=== PATIENT | male | born 1970 | race Asian ===

== ENCOUNTER 2016-07-03 09:20 | Emergency (ER) | payer SELFPAY ==
[~2016-07-03] VITALS: Ht 180.3 cm; Wt 93.0 kg
[2016-07-03 09:30] VITALS: BP 162/118
--- NOTE | 2016-07-03 09:35 | NUR ---
Patient ambulated to bed 8. RN evaluating patient at bedside.
[2016-07-03] MEDS ORDERED: LIDOCAINE 1% 500 MG/50 ML VIAL INJ SCH (09:55)
--- NOTE | 2016-07-03 09:55 | NUR ---
Dr. Adler evaluating patient at bedside.
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
[2016-07-03] MEDS ORDERED: LIDOCAINE 1% 500 MG/50 ML VIAL INJ ONE (10:10)
--- NOTE | 2016-07-03 10:14 | NUR ---
Dr. Adler at bedside for procedure.
[2016-07-03 10:45] VITALS: BP 133/92
--- NOTE | 2016-07-03 10:45 | NUR ---
Patient discharged with v/s stable. Written and verbal after care instructions given and explained. Patient alert, oriented and verbalized understanding of instructions. Ambulatory with steady gait. All questions addressed prior to discharge. ID band removed. Patient advised to follow up with PMD. Rx of TYLENOL, KEFLEX given. Patient educated on indication of medication including possible reaction and side effects. Opportunity to ask questions provided and answered.
== END 2016-07-03 10:45 | disposition home or self-care (01) ==
LOC: MED 09:20
DX: S91.332A Puncture wound without foreign body, left foot, initial encounter (principal); R03.0 Elevated blood-pressure reading, without diagnosis of hypertension; W22.8XXA Striking against or struck by other objects, initial encounter; Y93.89 Activity, other specified; Y92.89 Other specified places as the place of occurrence of the external cause; Y99.8 Other external cause status
CPT/HCPCS: 10060; 99283; J2001

== ENCOUNTER 2019-06-23 18:56 | Inpatient (IN) | payer MEDICAID ==
[~2019-06-23] VITALS: Ht 180.3 cm; Wt 101.6 kg
--- NOTE | 2019-06-23 18:56 | NUR ---
PATIENT BIBA TO BED 7 AT THIS TIME.
[2019-06-23 18:59] VITALS: BP 122/89
--- NOTE | 2019-06-23 19:06 | NUR ---
48 Y/O MALE BIBA C/O SOB, COUGH, AND FEVER X 2 WEEKS. PT STATES DRY, NONPRODUCTIVE COUGH. RR EVEN AND UNLABORED, NO ACCESSORY MUSCLE USE, TACHYPNIC AT THIS TIME. PT PLACED ON 2L NC 99%. DENIES N/V/D. PRESENTS AFEBRILE AT THIS TIME. PT SITTING IN SEMIFOWLERS POSITION FOR COMFORT. X1 SIDE RAIL RAISED. BED LOCKED AND IN LOW POSITION. VSS. MEDHX: DENIES ALLERIGES: JUNI
--- NOTE | 2019-06-23 19:54 | NUR ---
Dr. Dveine examining patient.
[2019-06-23] MEDS ORDERED: NACL 0.9% 1,000 ML IV ONE (20:00)
[2019-06-23] MEDS ORDERED: ALBUTEROL SULFATE/IPRATROPIU 3 ML SOL IH ONE (20:00)
[2019-06-23] MEDS ORDERED: NACL 0.9% 2,500 ML IV ONE (20:00)
--- NOTE | 2019-06-23 20:16 | NUR ---
URINE COLLECTED FROM PT. LABS DRAWN FROM IV.
--- NOTE | 2019-06-23 20:18 | NUR ---
XRAY AT BEDSIDE
[2019-06-23 20:39] LABS: BASOPHILS # (AUTO) 0.1 K/uL (0.00-0.22); BASOPHILS % (AUTO) 0.6 % (0.0-2.0); EOSINOPHILS # (AUTO) 0.1 K/uL (0-0.4); EOSINOPHILS % (AUTO) 1.3 % (0.0-4.0); HEMOGLOBIN 14.4 g/dL (12.0-18.0); LYMPHOCYTES # (AUTO) 1.8 K/uL (2.0-11.5); LYMPHOCYTES % (AUTO) 19.2 % (20.5-51.1); MEAN CORPUSCULAR HEMOGLOBIN 30 pg (27-31); MEAN CORPUSCULAR HGB CONC 33 g/dL (33-37); MEAN CORPUSCULAR VOLUME 92.9 fL (80-94); MONOCYTES % (AUTO) 11.1 % (1.7-9.3); NEUTROPHILS # (AUTO) 6.3 K/uL (1.8-7.7); NEUTROPHILS % (AUTO) 67.8 % (42.2-75.2); PLATELET COUNT (AUTO) 414 K/uL (140-450); RED BLOOD CELL COUNT(AUTO) 4.73 MIL/uL (4.20-6.10); RED CELL DISTRIBUTION WIDTH 14.1 % (11.6-13.7); WHITE BLOOD COUNT (AUTO) 9.3 K/uL (4.8-10.8)
[2019-06-23 20:50] LABS: PROTHROMBIN TIME 10.1 secs (10.8-13.4)
[2019-06-23 20:59] LABS: APPEARANCE,URINE CLEAR (CLEAR); BILIRUBIN,URINE 1+ (NEGATIVE); BLOOD, URINE NEGATIVE (NEGATIVE); COLOR,URINE YELLOW (YELLOW); LEUKOCYTE ESTERASE ,URINE NEGATIVE (NEGATIVE); NITRITE, URINE NEGATIVE (NEGATIVE); UGLUCOSE NEGATIVE (NEGATIVE)
[2019-06-23 21:08] LABS: ALBUMIN 3.1 g/dL (3.4-5.0); ANION GAP 12.3 (8-16); CARBON DIOXIDE 24.7 mmol/L (21-32); CREATININE 0.8 mg/dL (0.6-1.3); TOTAL BILIRUBIN 0.5 mg/dL (0.0-1.0)
[2019-06-23] MEDS ORDERED: FUROSEMIDE 20 MG/2 ML VIAL IVP ONE (21:25)
[2019-06-23] MEDS ORDERED: ASPIRIN 325 MG TAB PO ONE (21:25)
--- NOTE | 2019-06-23 21:33 | NUR ---
DR CULVER AT BEDSIDE RE-EVALUATING PT.
[2019-06-23] MEDS ORDERED: hePARIN / DEXT 5% PREMIX 250 ML IV SCH (21:35)
[2019-06-23] MEDS ORDERED: HEPARIN PER PHARMACY MC PRN (21:35)
[2019-06-23] MEDS ORDERED: ALBUTEROL SULFATE/IPRATROPIU 3 ML SOL IH PRN (22:10)
[2019-06-23] MEDS ORDERED: FUROSEMIDE 20 MG/2 ML VIAL IVP SCH (22:15)
[2019-06-23] MEDS ORDERED: HYDROcodone/APAP 5/325 MG 1 TAB TAB PO PRN (22:20)
[2019-06-23] MEDS ORDERED: ONDANSETRON 4 MG/2 ML VIAL IM/IVP PRN (22:20)
[2019-06-23] MEDS ORDERED: ACETAMINOPHEN 325 MG TAB PO PRN (22:20)
[2019-06-23] MEDS ORDERED: LORazepam 2 MG/ML VIAL IM/IVP PRN (22:20)
--- NOTE | 2019-06-23 22:22 | NUR ---
RECEIVED PATIENT FROM ER VIA GURNEY. A/O X4, ABLE TO MAKE NEEDS KNOWN. RESPIRATIONS EVEN, UNLABORED. BREATH SOUNDS CLEAR BILATERALLY. INTERMITTENT NON PRODUCTIVE COUGH NOTED. SKIN WARM, DRY AND INTACT. SKIN ASSESSMENT COMPLETED. IV SITE TO LEFT AC 22G PATENT/INTACT. NO C/O PAIN. NO S/SX ACUTE DISTRESS NOTED. PATIENT IS AMBULATORY. CONTINENT OF BOWEL AND BLADDER. MRSA SCREEN COMPLETED. PATIENT ORIENTED TO STAFF, ROOM AND CALL LIGHT. TELE MONITOR IN PLACE. SAFETY PRECAUTIONS IN PLACE. CALL LIGHT WITHIN REACH. WILL CONTINUE TO MONITOR.
--- NOTE | 2019-06-23 22:30 | NUR ---
Patient will be admitted to care of DR OBREGON. Admited to TELE. Will go to room 106B. Belongings list completed. Report to VINICIUS ALCALA.
[2019-06-23] MEDS ORDERED: METOPROLOL 25 MG TAB PO SCH (22:40)
[2019-06-23] MEDS: NICOTINE TRANSD SYS 21 MG/24 HR PATCH TD SCH (23:27)
[2019-06-23] MEDS: LISINOPRIL 10 MG TAB PO SCH (23:27)
[2019-06-23] MEDS: ATORVASTATIN 20 MG TAB PO SCH (23:27)
[2019-06-23 23:33] LABS: AMYLASE 29 U/L (25-115); CHOL/HDL RATIO 5.6 (1-4.5); FREE T4 (FREE THYROXINE) 1.05 ng/dL (0.76-1.46); HDL CHOLESTEROL 29 mg/dL (40-60); LACTATE DEHYDROGENASE 297 U/L (85-227); LDL (CALC) 117 mg/dL (60-100); LIPASE 98 U/L (73-393); MAGNESIUM 1.9 mg/dL (1.8-2.4); PHOSPHORUS 3.3 mg/dL (2.5-4.9); THYROID STIMULATING HORMONE 2.55 uIU/mL (0.34-3.74); TRIGLYCERIDES 83 mg/dL (30-150)
[2019-06-23] MEDS ORDERED: cefTRIAXone 1,000 MG VIAL ONE (23:44)
[2019-06-24] VITALS: BP 106/79
--- NOTE | 2019-06-24 00:44 | NUR ---
HEPARIN STARTED PER PROTOCOL. HEPARIN INFUSING TO IV SITE RIGHT AC 22G. NO C/O PAIN. NO S/SX ACUTE DISTRESS. CALL LIGHT WITHIN REACH. WILL CONTINUE TO MONITOR.
[2019-06-24] MEDS: hePARIN / DEXT 5% PREMIX 250 ML IV SCH ×4 (00:46→21:27)
[2019-06-24] MEDS ORDERED: hydrALAZINE 20 MG/ML VIAL IVP PRN (02:50)
[2019-06-24] MEDS: BENZONATATE 100 MG CAPLF PO PRN ×3 (02:52→16:12)
--- NOTE | 2019-06-24 02:52 | NUR ---
PATIENT C/O COUGH. MEDICATED ORDERED. NO S/SX ACUTE DISTRESS NOTED. NO C/O PAIN. CALL LIGHT WITHIN REACH. WILL CONTINUE TO MONITOR.
--- NOTE | 2019-06-24 03:30 | NUR ---
PATIENT ASLEEP. NO EPISODES OF COUGHING AT THIS TIME. NO C/O PAIN. NO S/SX ACUTE DISTRESS. CALL LIGHT WITHIN REACH. WILL CONTINUE TO MONITOR.
[2019-06-24 04:00] VITALS: BP 107/71
[2019-06-24] MEDS: MORPHINE SULFATE 2 MG/ML SYR IVP PRN ×2 (05:34→23:39)
--- NOTE | 2019-06-24 05:34 | NUR ---
PATIENT C/O ACHING HEADACHE 11/22. MEDICATED ORDERED. CALL LIGHT WITHIN REACH. WILL CONTINUE TO MONITOR.
[2019-06-24 06:28] LABS: CARBON DIOXIDE 27.2 mmol/L (21-32); POTASSIUM 4.2 mmol/L (3.5-5.1)
[2019-06-24 06:29] LABS: BASOPHILS # (AUTO) 0.1 K/uL (0.00-0.22); BASOPHILS % (AUTO) 0.7 % (0.0-2.0); EOSINOPHILS # (AUTO) 0.1 K/uL (0-0.4); EOSINOPHILS % (AUTO) 1.1 % (0.0-4.0); HEMATOCRIT 43.8 % (36-52); HEMOGLOBIN 14.4 g/dL (12.0-18.0); LYMPHOCYTES # (AUTO) 1.6 K/uL (2.0-11.5); LYMPHOCYTES % (AUTO) 16.8 % (20.5-51.1); MEAN CORPUSCULAR HEMOGLOBIN 31 pg (27-31); MEAN CORPUSCULAR HGB CONC 33 g/dL (33-37); MEAN CORPUSCULAR VOLUME 93.5 fL (80-94); MONOCYTES % (AUTO) 10.8 % (1.7-9.3); NEUTROPHILS # (AUTO) 6.7 K/uL (1.8-7.7); NEUTROPHILS % (AUTO) 70.6 % (42.2-75.2); PLATELET COUNT (AUTO) 385 K/uL (140-450); RED BLOOD CELL COUNT(AUTO) 4.68 MIL/uL (4.20-6.10); RED CELL DISTRIBUTION WIDTH 14.1 % (11.6-13.7); WHITE BLOOD COUNT (AUTO) 9.5 K/uL (4.8-10.8)
--- NOTE | 2019-06-24 06:32 | NUR ---
REASSESSED PATIENT'S PAIN LEVEL. PATIENT IS ASLEEP. NO S/SX ACUTE DISTRESS. CALL LIGHT WITHIN REACH. WILL CONTINUE TO MONITOR.
--- NOTE | 2019-06-24 07:19 | NUR ---
ENDORSED PATIENT TO AM SHIFT NURSE IN STABLE CONDITION FOR CONTINUITY OF CARE.
--- NOTE | 2019-06-24 07:20 | NUR ---
PATIENT LYING DOWN IN BED SLEEPING, AROUSABLE BY VOICE. NO DISTRESS NOTED. DENIES ANY PAIN. AAOX4, CALM, COOPERATIVE, SKIN COLOR APPROPRIATE TO ETHNICITY, WARM TO TOUCH. SKIN INTACT. IV SITES INTACT, PATENT, AND INFUSING IVF PER MD ORDERS. HEPARIN DRIP CURRENTLY INFUSING PER MD ORDERS. RESPIRATIONS EVEN, UNLABORED, ON ROOM AIR. SAFETY MEASURES IN PLACE, CALL LIGHT WITHIN REACH. WILL CONTINUE TO MONITOR.
[2019-06-24] MEDS: ALBUTEROL SULFATE/IPRATROPIU 3 ML SOL IH SCH ×3 (07:37→20:36)
[2019-06-24 08:00] VITALS: BP 118/89
--- NOTE | 2019-06-24 08:17 | NUR ---
PATIENT HAS BEEN SCREENED AND CATEGORIZED HIGH NUTRITION RISK. PATIENT WILL BE SEEN WITHIN 1-2 DAYS OF ADMISSION. 06/24/19 - 06/25/19 DELFINO MORIN MBA,RD
[2019-06-24] MEDS ORDERED: FUROSEMIDE 20 MG/2 ML VIAL IVP SCH (09:00)
[2019-06-24] MEDS: ASPIRIN 81 MG TAB.CHEW PO SCH (09:00)
[2019-06-24] MEDS: FUROSEMIDE 20 MG/2 ML VIAL IVP SCH (09:01)
--- NOTE | 2019-06-24 09:10 | NUR ---
PATIENT SITTING DOWN IN BED WATCHING TV. NO DISTRESS NOTED. DENIES ANY PAIN. SCHEDULED MEDICATIONS DUE GIVEN. DR. LEVIN AT BEDSIDE REVIEWING PLAN OF CARE WITH PATIENT. WILL CONTINUE TO MONITOR.
[2019-06-24 09:50] LABS: BARBITURATE, URINE NEGATIVE ng/ml (NEG <=200); BENZODIAZEPINE, URINE NEGATIVE ng/mL (NEG <=200); CANNABINOID, URINE NEGATIVE ng/mL (NEG <=50); COCAINE, URINE NEGATIVE ng/mL (NEG <=300); OPIATE, URINE NEGATIVE ng/mL (NEG <=2000); PHENCYCLIDINE SCREEN,URINE NEGATIVE ng/mL (NEG <=25)
--- NOTE | 2019-06-24 11:05 | NUR ---
PATIENT COMPLAINS OF COUGH, BENZONATE GIVEN AT THIS TIME. WILL CONTINUE TO MONITOR.
[2019-06-24 12:00] VITALS: BP 122/63
--- NOTE | 2019-06-24 13:00 | NUR ---
PATIENT LYING DOWN IN BED, ULTRASOUND BEING CONDUCTED. WILL CONTINUE TO MONITOR.
--- NOTE | 2019-06-24 15:12 | NUR ---
PATIENT LYING DOWN IN BED WATCHING TV. NO DISTRESS NOTED. DENIES ANY PAIN. CONDITION UNCHANGED. WILL CONTINUE TO MONITOR.
[2019-06-24] MEDS ORDERED: ALBUTEROL SULFATE/IPRATROPIU 3 ML SOL IH PRN (15:40)
[2019-06-24 16:00] VITALS: BP 112/77
[2019-06-24] MEDS: predniSONE 20 MG TAB PO SCH (16:12)
[2019-06-24] MEDS: LEVOFLOXACIN 500 MG/D5W PREMIX 100 ML IV SCH (16:14)
--- NOTE | 2019-06-24 16:30 | NUR ---
PATIENT SITTING IN BED WATCHING TV. NO DISTRESS NOTED. COMPLAINS OF COUGH, BENZONTATE GIVEN. OTHER SCHEDULED MEDICATIONS DUE GIVEN. WILL CONTINUE TO MONITOR.
--- NOTE | 2019-06-24 19:28 | NUR ---
GAVE REPORT TO NURSE INSTRUCTOR NURSE FOR CONTINUITY OF CARE. PATIENT IN STABLE CONDITION.
--- NOTE | 2019-06-24 19:30 | NUR ---
RECEIVED BEDSIDE REPORT FROM AM SHIFT RN FOR PT'S CONTINUITY OF CARE. PT IS AAOX4, IS ON REGULATORY AFFAIRS SPECIALIST, ON ROOM AIR, HAS RIGHT AC 22G INFUSING WITH HEPARIN, AND LEFT AC 22G TKO, DENIES ANY PAIN AT THIS TIME, REQUESTED FOR SLEEP AID. ORIENTED PT TO THE PARTITION ASSEMBLY MACHINE OPERATOR ROUTINE, PT VERBALIZED UNDERSTANDING. SAFETY MEASURES IN PLACE, AND CALL LIGHT IS WITHIN REACH. WILL NOTIFY MD FOR SLEEP AID REQUEST. WILL MONITOR PT THROUGHOUT SHIFT.
[2019-06-24] MEDS ORDERED: traZODone 50 MG TAB PO PRN (19:40)
[2019-06-24 20:00] VITALS: BP 119/65
[2019-06-24] MEDS: BUDESONIDE 0.5 MG/2 ML NEBU INH SCH (20:36)
--- NOTE | 2019-06-24 20:46 | NUR ---
RECEIVED PT ON ROOM AIR WITH AN SP02 OF 95% AND A CLEAR BREATH SOUNDS ON UPPER LOBES AND A COARSE BREATH SOUNDS ON LOWER BASES. NO RESPIRATORY DISTRESS NOTED AT THIS TIME. HHN TX GIVEN ORDERED WITH NO ADVERSE REACTION. WILL CONITINUE TO MONITOR PT.
[2019-06-24] MEDS: DOCUSATE SODIUM 100 MG GELCAP PO PRN (21:12)
[2019-06-24] MEDS: ATORVASTATIN 20 MG TAB PO SCH (21:12)
[2019-06-24] MEDS: LISINOPRIL 10 MG TAB PO SCH (21:12)
[2019-06-24] MEDS: NICOTINE TRANSD SYS 21 MG/24 HR PATCH TD SCH (21:12)
--- NOTE | 2019-06-24 21:28 | NUR ---
ADMINISTERED SCHEDULED, AND PRN PO MEDICATIONS ORDERED. PT TOLERATED THEM WELL. HUNG NEW IV HEPARIN DRIP. PT TEACHING GIVEN RE: MEDICATIONS. PT VERBALIZED UNDERSTANDING. PT'S NEEDS MET AT THIS TIME. WILL CONTINUE TO MONITOR PT.
--- NOTE | 2019-06-24 23:39 | NUR ---
PT C/O CHEST PAIN DT COUGH, ADMINISTERED PRN IVP PAIN MEDICATION ORDERED. PT TEACHING GIVING. PT VERBALIZED UNDERSTANDING. PT'S NEEDS MET. WILL CONTINUE TO MONITOR PT.
[2019-06-25] VITALS: BP 106/63
--- NOTE | 2019-06-25 00:30 | NUR ---
APTT LEVEL 49.2. NO CHANGE PER PROTOCOL.
[2019-06-25] MEDS: BENZONATATE 100 MG CAPLF PO PRN (01:04)
--- NOTE | 2019-06-25 01:06 | NUR ---
PT BEEN COUGHING. REQUESTED FOR COUGH MEDICATION. ADMINISTERED PRN PO COUGH MEDICINE, PT TOLERATED IT WELL. WILL CONTINUE TO MONITOR PT.
--- NOTE | 2019-06-25 02:30 | NUR ---
MADE ROUNDS. PT LYING DOWN ASLEEP, NO COUGHING NOTED. WILL CONTINUE TO MONITOR PT.
[2019-06-25] MEDS: hePARIN / DEXT 5% PREMIX 250 ML IV SCH ×2 (02:55→09:11)
[2019-06-25 04:00] VITALS: BP 110/72
--- NOTE | 2019-06-25 04:30 | NUR ---
PT ASLEEP WITH NO SIGNS OF DISTRESS. INTERMITTENT NON-PRODUCTIVE COUGH NOTED. WILL CONTINUE TO MONITOR PT.
--- NOTE | 2019-06-25 06:19 | NUR ---
PT ASLEEP WITH NO SIGNS OF DISTRESS. STILL AWAITING FOR PTT RESULT. WILL ENDORSE TO AM SHIFT RN FOR PT'S CONTINUITY OF CARE.
[2019-06-25] MEDS: BUDESONIDE 0.5 MG/2 ML NEBU INH SCH ×2 (07:04→20:21)
[2019-06-25] MEDS: ALBUTEROL SULFATE/IPRATROPIU 3 ML SOL IH SCH ×3 (07:04→20:21)
[2019-06-25 07:57] LABS: ANION GAP 13.5 (8-16); CARBON DIOXIDE 25.3 mmol/L (21-32); HEMATOCRIT 44.2 % (36-52); HEMOGLOBIN 14.5 g/dL (12.0-18.0); LYMPHOCYTES # (AUTO) 1.4 K/uL (2.0-11.5); LYMPHOCYTES % (AUTO) 12.5 % (20.5-51.1); MEAN CORPUSCULAR HEMOGLOBIN 30 pg (27-31); MEAN CORPUSCULAR HGB CONC 33 g/dL (33-37); MEAN CORPUSCULAR VOLUME 92.9 fL (80-94); MONOCYTES # (AUTO) 1.4 K/uL (0.8-1.0); MONOCYTES % (AUTO) 12.5 % (1.7-9.3); NEUTROPHILS # (AUTO) 8.7 K/uL (1.8-7.7); PLATELET COUNT (AUTO) 393 K/uL (140-450); POTASSIUM 3.8 mmol/L (3.5-5.1); RED BLOOD CELL COUNT(AUTO) 4.76 MIL/uL (4.20-6.10); RED CELL DISTRIBUTION WIDTH 14.1 % (11.6-13.7); WHITE BLOOD COUNT (AUTO) 11.6 K/uL (4.8-10.8)
[2019-06-25 08:00] VITALS: BP 115/78
[2019-06-25] MEDS: NICOTINE TRANSD SYS 21 MG/24 HR PATCH TD SCH (09:00)
[2019-06-25 09:27] LABS: MAGNESIUM 1.9 mg/dL (1.8-2.4); PHOSPHORUS 4.3 mg/dL (2.5-4.9)
[2019-06-25] MEDS: LISINOPRIL 10 MG TAB PO SCH (09:27)
[2019-06-25] MEDS: predniSONE 20 MG TAB PO SCH (09:28)
[2019-06-25] MEDS: ASPIRIN 81 MG TAB.CHEW PO SCH (09:28)
[2019-06-25] MEDS: FUROSEMIDE 20 MG/2 ML VIAL IVP SCH (09:29)
--- NOTE | 2019-06-25 10:00 | NUR ---
PATIENT SITTING DOWN IN BED WATCHING TV. NO DISTRESS NOTED. WILL CONTINUE TO MONITOR.
[2019-06-25 12:00] VITALS: BP 111/55
--- NOTE | 2019-06-25 13:00 | NUR ---
PATIENT LYING DOWN IN BED SLEEPING, AROUSABLE BY VOICE. CONDITION UNCHANGED. WILL CONTINUE TO MONITOR.
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
--- NOTE | 2019-06-25 15:40 | NUR ---
HEPARIN DRIP DISCONTINUED AT THIS TIME PER MD ORDERS. WILL CONTINUE TO MONITOR.
--- NOTE | 2019-06-25 15:44 | NUR ---
06/25/19 RD INITIAL ASSESSMENT COMPLETED PLEASE REFER TO NUTRITION ASSESSMENT UNDER CARE ACTIVITY FOR ESTIMATED NUTRITIONAL NEEDS. 1. CONTINUE CARDIAC DIET TOLERATED 2. RD PROVIDED NUTRITION EDUCATION ON TLC DIET AND CHF MANAGEMENT. 3. RD TO FOLLOW-UP 5-7 DAYS, LOW RISK ASHELY FARRAR RD
[2019-06-25 16:00] VITALS: BP 108/70
[2019-06-25] MEDS: LEVOFLOXACIN 500 MG/D5W PREMIX 100 ML IV SCH (16:11)
--- NOTE | 2019-06-25 16:15 | NUR ---
PATIENT LYING DOWN IN BED SLEEPING, AROUSABLE BY VOICE. SCHEDULED MEDICATIONS DUE GIVEN. WILL CONTINUE TO MONITOR.
--- NOTE | 2019-06-25 19:25 | NUR ---
GAVE REPORT TO SUPERVISOR STATEMENT CLERKS NURSE FOR CONTINUITY OF CARE. PATIENT IN STABLE CONDITION.
--- NOTE | 2019-06-25 19:26 | NUR ---
RECEIVED PT IN STABLE CONDITION FROM AM NURSE. AWAKE,ALERT AND ORIENTED X4. ON TELE MONITOR. AMBULATORY. WITH NO CO ANY DISCOMFORT NOR PAIN NOTED. HL ON BOTH LT AC AND RT ACG#22. CLEAR AND PATENT PLAN OF CARE DISCUSSED AND VERBALIZED UNDERSTANDING. WITH BED ON LOW POSITION. SIDE RAILS UP X2. CALL LIGHT PLACED WITHIN EASY REACH. WILL CONTINUE TO MONITOR.
[2019-06-25 20:00] VITALS: BP 122/56
--- NOTE | 2019-06-25 20:26 | NUR ---
RECEIVED PT ON ROOM AIR WITH AN SP02 OF 97% AND A CLEAR BREATH SOUNDS ON UPPER LOBES. NO APPARENT RESPIRATORY DISTRESS NOTED AT THIS TIME. HHN TX GIVEN ORDERED WITH NO ADVERSE REACTION. WILL CONTINUE TO MONITOR PT.
--- NOTE | 2019-06-25 21:00 | NUR ---
PT TOOK DUE MEDS . C/O NO BM X2DAYS. WILL GIVE ALSO COLACE AND PRUNE JUICE.
[2019-06-25] MEDS: ATORVASTATIN 20 MG TAB PO SCH (21:01)
[2019-06-25] MEDS: DOCUSATE SODIUM 100 MG GELCAP PO PRN (21:02)
--- NOTE | 2019-06-25 23:00 | NUR ---
MADE ROUNDS. PT ASLEEP. NO S/S OF ANY DISCOMFORT NOTED.
[2019-06-26 01:00] VITALS: BP 117/73
--- NOTE | 2019-06-26 01:15 | NUR ---
PT STILL UNABLE TO HAVE BM AFTER THE COLACE AND PRUNE JUICE TAKEN EARLIER. DR. TELLES MADE AWARE WI ORDER.
[2019-06-26] MEDS ORDERED: MAGNESIUM CITRATE 300 ML BTL PO SCH (02:30)
--- NOTE | 2019-06-26 03:00 | NUR ---
PT ASLEEP. NO S/S OF ANY DISCOMFORT NOTED.
[2019-06-26 05:00] VITALS: BP 113/77
--- NOTE | 2019-06-26 05:00 | NUR ---
PT JUST TOOK THE [place] THIS AM. WILL WAIT FOR BM.
[2019-06-26] MEDS: BENZONATATE 100 MG CAPLF PO PRN (05:07)
[2019-06-26] MEDS: ALBUTEROL SULFATE/IPRATROPIU 3 ML SOL IH SCH ×2 (07:05→13:35)
[2019-06-26] MEDS: BUDESONIDE 0.5 MG/2 ML NEBU INH SCH (07:15)
--- NOTE | 2019-06-26 07:20 | NUR ---
PATIENT LYING DOWN IN BED SLEEPING, AROUSABLE BY VOICE. NO DISTRESS NOTED. DENIES ANY PAIN. AAOX4, CALM, COOPERATIVE, SKIN COLOR APPROPRIATE TO ETHNICITY, WARM TO TOUCH. SKIN INTACT. IV SITES INTACT, PATENT, AND INFUSING IVF PER MD ORDERS. RESPIRATIONS EVEN, UNLABORED, ON ROOM AIR. SAFETY MEASURES IN PLACE, CALL LIGHT WITHIN REACH. WILL CONTINUE TO MONITOR.
[2019-06-26 08:00] VITALS: BP 104/53
[2019-06-26] MEDS: LISINOPRIL 10 MG TAB PO SCH (09:00)
[2019-06-26] MEDS: FUROSEMIDE 20 MG/2 ML VIAL IVP SCH (09:00)
[2019-06-26] MEDS: ASPIRIN 81 MG TAB.CHEW PO SCH (09:00)
[2019-06-26] MEDS: predniSONE 20 MG TAB PO SCH (09:00)
[2019-06-26] MEDS: NICOTINE TRANSD SYS 21 MG/24 HR PATCH TD SCH (09:00)
--- NOTE | 2019-06-26 09:10 | NUR ---
PATIENT SITTING DOWN IN BED SLEEPING, AROUSABLE BY VOICE. NO DISTRESS NOTED. DENIES ANY PAIN. SCHEDULED MEDICATIONS DUE GIVEN. WILL CONTINUE TO MONITOR.
[2019-06-26 10:53] LABS: BASOPHILS # (AUTO) 0.1 K/uL (0.00-0.22); BASOPHILS % (AUTO) 1.1 % (0.0-2.0); CARBON DIOXIDE 25.5 mmol/L (21-32); EOSINOPHILS # (AUTO) 0.1 K/uL (0-0.4); EOSINOPHILS % (AUTO) 0.5 % (0.0-4.0); HEMATOCRIT 46.2 % (36-52); HEMOGLOBIN 15.2 g/dL (12.0-18.0); LYMPHOCYTES # (AUTO) 2.5 K/uL (2.0-11.5); LYMPHOCYTES % (AUTO) 18.3 % (20.5-51.1); MEAN CORPUSCULAR HEMOGLOBIN 31 pg (27-31); MEAN CORPUSCULAR HGB CONC 33 g/dL (33-37); MEAN CORPUSCULAR VOLUME 93.2 fL (80-94); MONOCYTES # (AUTO) 1.7 K/uL (0.8-1.0); MONOCYTES % (AUTO) 12.5 % (1.7-9.3); NEUTROPHILS # (AUTO) 9.1 K/uL (1.8-7.7); NEUTROPHILS % (AUTO) 67.6 % (42.2-75.2); PHOSPHORUS 5.2 mg/dL (2.5-4.9); PLATELET COUNT (AUTO) 451 K/uL (140-450); POTASSIUM 3.5 mmol/L (3.5-5.1); RED BLOOD CELL COUNT(AUTO) 4.96 MIL/uL (4.20-6.10); RED CELL DISTRIBUTION WIDTH 14.5 % (11.6-13.7); WHITE BLOOD COUNT (AUTO) 13.4 K/uL (4.8-10.8)
--- NOTE | 2019-06-26 11:30 | NUR ---
PATIENT SITTING IN BED WATCHING TV. NO DISTRESS NOTED. DENIES ANY PAIN. CONDITION UNCHANGED. WILL CONTINUE TO MONITOR.
[2019-06-26 12:00] VITALS: BP 107/66
--- NOTE | 2019-06-26 13:30 | NUR ---
PATIENT SITTING DOWN IN WATCHING TV. CONDITION UNCHANGED. WILL CONTINUE TO MONITOR.
[2019-06-26] MEDS ORDERED: INFLUENZA VACCINE QUAD 0.5 ML SYR IMVAC PRN (14:20)
[2019-06-26] MEDS ORDERED: CARVEDILOL 3.125 MG TAB PO SCH (14:40)
[2019-06-26] MEDS ORDERED: ATOR40TA PO (14:46)
[2019-06-26] MEDS ORDERED: LISI10TA11 PO (14:46)
[2019-06-26] MEDS ORDERED: ASPI81CT95 PO (14:46)
[2019-06-26] MEDS ORDERED: NICO-532 TD (14:46)
[2019-06-26] MEDS ORDERED: FURO-570 PO (14:46)
[2019-06-26] MEDS ORDERED: CARV3.12 PO (14:52)
--- NOTE | 2019-06-26 16:18 | NUR ---
DISCHARGE INSTRUCTIONS PROVIDED TO PATIENT IN PREFERRED LANGUAGE OF CYMRAES. INSTRUCTIONS ON NEW/CHANGED MEDICATION REGIMEN AND SIDE EFFECT, DIET REGIMEN, AND MANAGEMENT OF CHF. ANSWERED ALL OF PATIENT'S QUESTIONS REGARDING DISCHARGE. PATIENT VERBALIZED COMPLETE UNDERSTANDING. IV SITE REMOVED WITH MINIMAL BLOOD AND LUMEN COMPLETELY INTACT. PATIENT TOLERATED WELL. ID BANDS REMOVED. SON AT BEDSIDE READY TO TAKE PATIENT HOME. ESCORTED PATIENT DOWN TO LOBBY VIA STEADY AMBULATION. PATIENT DISCHARGED TO HOME AT THIS TIME IN STABLE CONDITION.
== END 2019-06-26 17:04 | disposition home or self-care (01) | DRG 190 ==
LOC: MED 18:56 → MTU 21:30
PROVIDERS: ADMIT General Practice; ATTEND General Practice
DX: I21.A1 Myocardial infarction type 2 (principal); J96.01 Acute respiratory failure with hypoxia; I50.43 Acute on chronic combined systolic (congestive) and diastolic (congestive) heart failure; I42.7 Cardiomyopathy due to drug and external agent; R65.10 Systemic inflammatory response syndrome (SIRS) of non-infectious origin without acute organ dysfunction; E44.0 Moderate protein-calorie malnutrition; J44.9 Chronic obstructive pulmonary disease, unspecified; T50.905A Adverse effect of unspecified drugs, medicaments and biological substances, initial encounter; F17.210 Nicotine dependence, cigarettes, uncomplicated; Z96.642 Presence of left artificial hip joint; F15.90 Other stimulant use, unspecified, uncomplicated; Z68.31 Body mass index [BMI] 31.0-31.9, adult; Y92.89 Other specified places as the place of occurrence of the external cause; Z90.81 Acquired absence of spleen; Z80.1 Family history of malignant neoplasm of trachea, bronchus and lung; Z71.51 Drug abuse counseling and surveillance of drug abuser; Z71.6 Tobacco abuse counseling; Z23 Encounter for immunization
CPT/HCPCS: 36415; 36600; 71045; 71275; 76604; 80048; 80053; 80305; 81003; 82043; 82140; 82150; 82803; 83036; 83605; 83615; 83690; 83735; 83880; 84100; 84439; 84443; 84484; 85025; 85379; 85610; 85730; 87040; 87081; 87086; 87804; 93005; 94640; 96361; 96374; 99285; G0482; J0696; J1644; J1940; J1956; J2270; J7030; J7060; J7512; J7620; J7626; Q0092; Q9967

== ENCOUNTER 2019-08-01 14:13 | Inpatient (IN) | payer MEDICAID ==
[~2019-08-01] VITALS: Ht 177.8 cm; Wt 104.3 kg
[~2019-08-01 14:13] MED LIST: ASPI81CT95 PO; ATOR40TA PO; CARV3.12 PO; FURO-570 PO; LISI10TA11 PO; NICO-532 TD
[2019-08-01 14:17] VITALS: BP 129/91
[2019-08-01] MEDS ORDERED: FUROSEMIDE 20 MG/2 ML VIAL IVP ONE (14:40)
[2019-08-01] MEDS ORDERED: ASPIRIN 81 MG TAB.CHEW PO ONE (14:40)
[2019-08-01] MEDS ORDERED: LEVOFLOXACIN 500 MG/D5W PREMIX 100 ML IV ONE (14:40)
[2019-08-01 15:13] LABS: BASOPHILS # (AUTO) 0.3 K/uL (0.00-0.22); BASOPHILS % (AUTO) 2.7 % (0.0-2.0); EOSINOPHILS % (AUTO) 0.1 % (0.0-4.0); HEMATOCRIT 51.6 % (36-52); HEMOGLOBIN 16.6 g/dL (12.0-18.0); LYMPHOCYTES # (AUTO) 1.6 K/uL (2.0-11.5); LYMPHOCYTES % (AUTO) 13.7 % (20.5-51.1); MEAN CORPUSCULAR HEMOGLOBIN 31 pg (27-31); MEAN CORPUSCULAR HGB CONC 32 g/dL (33-37); MEAN CORPUSCULAR VOLUME 95.4 fL (80-94); MONOCYTES # (AUTO) 1.6 K/uL (0.8-1.0); MONOCYTES % (AUTO) 13.9 % (1.7-9.3); NEUTROPHILS # (AUTO) 7.9 K/uL (1.8-7.7); NEUTROPHILS % (AUTO) 69.6 % (42.2-75.2); PLATELET COUNT (AUTO) 285 K/uL (140-450); RED BLOOD CELL COUNT(AUTO) 5.41 MIL/uL (4.20-6.10); RED CELL DISTRIBUTION WIDTH 15.5 % (11.6-13.7); WHITE BLOOD COUNT (AUTO) 11.4 K/uL (4.8-10.8)
[2019-08-01] MEDS ORDERED: ONDANSETRON 4 MG/2 ML VIAL IM/IVP PRN (15:40)
[2019-08-01] MEDS ORDERED: DOCUSATE SODIUM 100 MG GELCAP PO PRN (15:40)
[2019-08-01] MEDS ORDERED: ACETAMINOPHEN 325 MG TAB PO PRN (15:40)
[2019-08-01 15:41] LABS: PROTHROMBIN TIME 28.3 secs (10.8-13.4)
[2019-08-01] MEDS ORDERED: ALBUTEROL SULFATE/IPRATROPIU 3 ML SOL IH PRN (15:55)
[2019-08-01 16:39] LABS: APPEARANCE,URINE CLEAR (CLEAR); BILIRUBIN,URINE 2+ (NEGATIVE); BLOOD, URINE 1+ (NEGATIVE); COLOR,URINE YELLOW (YELLOW); LEUKOCYTE ESTERASE ,URINE NEGATIVE (NEGATIVE); NITRITE, URINE NEGATIVE (NEGATIVE); PH,URINE 5.5 (5.0-9.0); UGLUCOSE NEGATIVE (NEGATIVE)
[2019-08-01] MEDS: NACL 0.9% 1,000 ML IV SCH (16:51)
[2019-08-01 16:54] LABS: BARBITURATE, URINE NEGATIVE ng/ml (NEG <=200); BENZODIAZEPINE, URINE NEGATIVE ng/mL (NEG <=200); CANNABINOID, URINE NEGATIVE ng/mL (NEG <=50); COCAINE, URINE NEGATIVE ng/mL (NEG <=300); OPIATE, URINE NEGATIVE ng/mL (NEG <=2000); PHENCYCLIDINE SCREEN,URINE NEGATIVE ng/mL (NEG <=25)
[2019-08-01 17:00] VITALS: BP 114/83
[2019-08-01 17:06] LABS: FREE T4 (FREE THYROXINE) 1.43 ng/dL (0.76-1.46); MAGNESIUM 2.1 mg/dL (1.8-2.4); PHOSPHORUS 4.4 mg/dL (2.5-4.9); THYROID STIMULATING HORMONE 1.45 uIU/mL (0.34-3.74)
[2019-08-01 17:13] LABS: WBC,URINE 0-5 /HPF (0-5)
[2019-08-01] MEDS ORDERED: AZITHROMYCIN 500 MG in DEXTROSE 5% 250 ML IV SCH (17:30)
[2019-08-01 17:55] LABS: ALBUMIN 3.4 g/dL (3.4-5.0); ANION GAP 19.5 (8-16); CREATININE 1.4 mg/dL (0.6-1.3); POTASSIUM 4.5 mmol/L (3.5-5.1); TOTAL BILIRUBIN 2.8 mg/dL (0.0-1.0)
[2019-08-01] MEDS ORDERED: FUROSEMIDE 20 MG/2 ML VIAL IVP SCH (18:15)
[2019-08-01 20:00] VITALS: BP 109/90
[2019-08-01] MEDS: CARVEDILOL 3.125 MG TAB PO SCH (20:24)
[2019-08-01] MEDS ORDERED: ONDANSETRON 4 MG/2 ML VIAL IVP PRN (20:40)
[2019-08-01] MEDS: ZOLPIDEM 5 MG TAB PO PRN (21:00)
[2019-08-01] MEDS ORDERED: ATORVASTATIN 20 MG TAB PO SCH (21:00)
[2019-08-01] MEDS ORDERED: DOCUSATE SODIUM 100 MG GELCAP PO SCH (21:00)
[2019-08-01] MEDS ORDERED: LORazepam 2 MG/ML VIAL ONE (21:34)
[2019-08-01] MEDS: LORazepam 2 MG/ML VIAL IM/IVP PRN (21:45)
[2019-08-01] MEDS ORDERED: VANCOMYCIN PER PHARMACY MC PRN (22:50)
[2019-08-02] VITALS: BP 109/75
[2019-08-02] MEDS ORDERED: HEPARIN PER PHARMACY MC PRN (01:35)
[2019-08-02] MEDS ORDERED: hePARIN / DEXT 5% PREMIX 250 ML IV ONE (03:35)
[2019-08-02] MEDS ORDERED: VANCOMYCIN HCL 1,750 MG in NACL 0.9% 500 ML IV SCH (03:35)
[2019-08-02] MEDS ORDERED: VANCOMYCIN 1,000 MG VIAL ONE (03:43)
[2019-08-02 04:00] VITALS: BP 100/64
[2019-08-02] MEDS: hePARIN / DEXT 5% PREMIX 250 ML IV SCH ×2 (04:07→13:22)
[2019-08-02 06:31] LABS: CHOL/HDL RATIO 3.8 (1-4.5)
[2019-08-02 08:00] VITALS: BP 115/81
[2019-08-02] MEDS ORDERED: LISINOPRIL 10 MG TAB PO SCH (09:00)
[2019-08-02] MEDS: NICOTINE TRANSD SYS 21 MG/24 HR PATCH TD SCH (09:00)
[2019-08-02] MEDS ORDERED: FUROSEMIDE 20 MG/2 ML VIAL IVP SCH (09:00)
[2019-08-02 09:22] LABS: HEMATOCRIT 46.8 % (36-52); HEMOGLOBIN 14.9 g/dL (12.0-18.0); MEAN CORPUSCULAR HEMOGLOBIN 31 pg (27-31); MEAN CORPUSCULAR HGB CONC 32 g/dL (33-37); MEAN CORPUSCULAR VOLUME 96.3 fL (80-94); PLATELET COUNT (AUTO) 271 K/uL (140-450); RED BLOOD CELL COUNT(AUTO) 4.86 MIL/uL (4.20-6.10); RED CELL DISTRIBUTION WIDTH 15.7 % (11.6-13.7); WHITE BLOOD COUNT (AUTO) 17.7 K/uL (4.8-10.8)
[2019-08-02 09:26] LABS: ANION GAP 20.8 (8-16); CARBON DIOXIDE 21.1 mmol/L (21-32); CREATININE 2.1 mg/dL (0.6-1.3); POTASSIUM 4.9 mmol/L (3.5-5.1)
[2019-08-02 09:57] LABS: LYMPHOCYTES % (MANUAL) 5 % (20-46); MONOCYTES % (MANUAL) 10 % (5-12)
[2019-08-02] MEDS: ASPIRIN 81 MG TAB.CHEW PO SCH (09:58)
[2019-08-02] MEDS: DOCUSATE 100 MG/10 ML UDC PO SCH ×2 (09:58→20:20)
[2019-08-02] MEDS: CARVEDILOL 3.125 MG TAB PO SCH ×2 (09:58→20:21)
[2019-08-02] MEDS: AZITHROMYCIN 250 MG in DEXTROSE 5% 250 ML IV SCH (10:33)
[2019-08-02 12:00] VITALS: BP 105/78
[2019-08-02] MEDS: NACL 0.9% 1,000 ML IV SCH (15:38)
[2019-08-02 16:00] VITALS: BP 114/77
[2019-08-02] MEDS: VANCOMYCIN 1,000 MG in DEXTROSE 5% 250 ML IV SCH (18:20)
[2019-08-02 20:00] VITALS: BP 145/75
[2019-08-02] MEDS: ZOLPIDEM 5 MG TAB PO PRN (20:21)
[2019-08-03] VITALS: BP 123/61
[2019-08-03] MEDS: hePARIN / DEXT 5% PREMIX 250 ML IV SCH ×2 (01:34→21:47)
[2019-08-03 04:00] VITALS: BP 129/75
[2019-08-03] MEDS: VANCOMYCIN 1,000 MG in DEXTROSE 5% 250 ML IV SCH (05:08)
[2019-08-03 06:19] LABS: HEPATITIS A ANTIBODY IGM Negative (Negative); HEPATITIS B CORE AB TOTAL Negative (Negative); HEPATITIS B SURFACE ANTIBODY Non Reactive (.); HEPATITIS B SURFACE ANTIGEN Negative (Negative)
[2019-08-03 08:00] VITALS: BP 122/72
[2019-08-03 08:03] LABS: HEMATOCRIT 44.6 % (36-52); HEMOGLOBIN 14.4 g/dL (12.0-18.0); MEAN CORPUSCULAR HEMOGLOBIN 31 pg (27-31); MEAN CORPUSCULAR HGB CONC 32 g/dL (33-37); MEAN CORPUSCULAR VOLUME 95.4 fL (80-94); PLATELET COUNT (AUTO) 208 K/uL (140-450); RED BLOOD CELL COUNT(AUTO) 4.67 MIL/uL (4.20-6.10); RED CELL DISTRIBUTION WIDTH 15.2 % (11.6-13.7); WHITE BLOOD COUNT (AUTO) 17.4 K/uL (4.8-10.8)
[2019-08-03] MEDS: NICOTINE TRANSD SYS 21 MG/24 HR PATCH TD SCH (08:25)
[2019-08-03] MEDS: DOCUSATE 100 MG/10 ML UDC PO SCH ×2 (08:25→20:10)
[2019-08-03] MEDS: ASPIRIN 81 MG TAB.CHEW PO SCH (08:26)
[2019-08-03] MEDS: CARVEDILOL 3.125 MG TAB PO SCH ×3 (08:27→20:27)
[2019-08-03] MEDS: LORazepam 2 MG/ML VIAL IM/IVP PRN (08:27)
[2019-08-03 08:29] LABS: LYMPHOCYTES % (MANUAL) 2 % (20-46); MONOCYTES % (MANUAL) 10 % (5-12)
[2019-08-03 08:34] LABS: ALBUMIN 3.2 g/dL (3.4-5.0); ANION GAP 20.3 (8-16); CARBON DIOXIDE 19.1 mmol/L (21-32); CREATININE 2.2 mg/dL (0.6-1.3); POTASSIUM 4.4 mmol/L (3.5-5.1); TOTAL BILIRUBIN 4.4 mg/dL (0.0-1.0)
[2019-08-03] MEDS ORDERED: FUROSEMIDE 20 MG/2 ML VIAL IVP SCH ×2 (09:00→12:41)
[2019-08-03] MEDS: AZITHROMYCIN 250 MG in DEXTROSE 5% 250 ML IV SCH (09:29)
[2019-08-03 12:00] VITALS: BP 110/89
[2019-08-03 14:42] LABS: ACETAMINOPHEN < 0.5 ug/ml (10-30); SALICYLATE < 2.8 mg/dL (2.8-20.0)
[2019-08-03 16:00] VITALS: BP 135/69
[2019-08-03] MEDS: ALBUTEROL HFA MDI 90 MCG/ACTUATION 8 GM INH PRN ×2 (16:02→19:42)
[2019-08-03 17:58] LABS: ALBUMIN 3.1 g/dL (3.4-5.0); ANION GAP 16.1 (8-16); CARBON DIOXIDE 21.6 mmol/L (21-32); CREATININE 2.1 mg/dL (0.6-1.3); POTASSIUM 4.7 mmol/L (3.5-5.1); TOTAL BILIRUBIN 4.3 mg/dL (0.0-1.0)
[2019-08-03] MEDS: LACTULOSE 20 GM/30 ML UDC PO SCH (18:20)
[2019-08-03 20:00] VITALS: BP 97/62
[2019-08-03] MEDS: FUROSEMIDE 20 MG/2 ML VIAL IVP SCH (20:11)
[2019-08-03] MEDS: SENNA 8.6 MG TAB PO SCH (20:11)
[2019-08-04] VITALS: BP 112/80
[2019-08-04 04:00] VITALS: BP 121/79
[2019-08-04 08:00] VITALS: BP 106/77
[2019-08-04] MEDS: LACTULOSE 20 GM/30 ML UDC PO SCH ×3 (08:26→17:59)
[2019-08-04] MEDS: CARVEDILOL 3.125 MG TAB PO SCH ×2 (08:26→20:42)
[2019-08-04] MEDS: DOCUSATE 100 MG/10 ML UDC PO SCH ×2 (08:26→20:23)
[2019-08-04] MEDS: ASPIRIN 81 MG TAB.CHEW PO SCH (08:26)
[2019-08-04] MEDS: FUROSEMIDE 20 MG/2 ML VIAL IVP SCH ×2 (08:27→20:23)
[2019-08-04] MEDS: NICOTINE TRANSD SYS 21 MG/24 HR PATCH TD SCH (08:27)
[2019-08-04 08:30] LABS: HEMATOCRIT 43.8 % (36-52); HEMOGLOBIN 14.1 g/dL (12.0-18.0); MEAN CORPUSCULAR HEMOGLOBIN 31 pg (27-31); MEAN CORPUSCULAR HGB CONC 32 g/dL (33-37); MEAN CORPUSCULAR VOLUME 94.6 fL (80-94); PLATELET COUNT (AUTO) 217 K/uL (140-450); RED BLOOD CELL COUNT(AUTO) 4.63 MIL/uL (4.20-6.10); RED CELL DISTRIBUTION WIDTH 15.3 % (11.6-13.7); WHITE BLOOD COUNT (AUTO) 15.4 K/uL (4.8-10.8)
[2019-08-04 09:10] LABS: CORRECTED WHITE BLOOD COUNT 12.8 K/uL (4.5-11.0); EOSINOPHILS % (MANUAL) 4 % (0-4); LYMPHOCYTES % (MANUAL) 4 % (20-46); MONOCYTES % (MANUAL) 7 % (5-12)
[2019-08-04 09:11] LABS: ANION GAP 14.6 (8-16); CARBON DIOXIDE 24.2 mmol/L (21-32); CREATININE 1.6 mg/dL (0.6-1.3); POTASSIUM 3.8 mmol/L (3.5-5.1); TOTAL BILIRUBIN 4.4 mg/dL (0.0-1.0)
[2019-08-04] MEDS: hePARIN / DEXT 5% PREMIX 250 ML IV SCH ×3 (09:13→18:01)
[2019-08-04] MEDS: AZITHROMYCIN 250 MG in DEXTROSE 5% 250 ML IV SCH (09:48)
[2019-08-04 12:00] VITALS: BP 118/78
[2019-08-04 16:00] VITALS: BP 117/74
[2019-08-04 20:00] VITALS: BP 105/74
[2019-08-04] MEDS: SENNA 8.6 MG TAB PO SCH (20:24)
[2019-08-05] VITALS (7 sets, daily range): BP systolic 90–140; BP diastolic 44–85
[2019-08-05 06:50] LABS: HEMATOCRIT 44.8 % (36-52); HEMOGLOBIN 14.6 g/dL (12.0-18.0); MEAN CORPUSCULAR HEMOGLOBIN 31 pg (27-31); MEAN CORPUSCULAR HGB CONC 33 g/dL (33-37); MEAN CORPUSCULAR VOLUME 93.5 fL (80-94); PLATELET COUNT (AUTO) 226 K/uL (140-450); RED BLOOD CELL COUNT(AUTO) 4.79 MIL/uL (4.20-6.10); RED CELL DISTRIBUTION WIDTH 15.2 % (11.6-13.7); WHITE BLOOD COUNT (AUTO) 13.2 K/uL (4.8-10.8)
[2019-08-05 07:10] LABS: ANION GAP 12.1 (8-16); CARBON DIOXIDE 27.2 mmol/L (21-32); CREATININE 1.4 mg/dL (0.6-1.3); POTASSIUM 3.3 mmol/L (3.5-5.1)
[2019-08-05 07:13] LABS: MAGNESIUM 2.1 mg/dL (1.8-2.4); PHOSPHORUS 2.3 mg/dL (2.5-4.9)
[2019-08-05 07:20] LABS: CORRECTED WHITE BLOOD COUNT 11.2 K/uL (4.5-11.0)
[2019-08-05 07:21] LABS: LYMPHOCYTES % (MANUAL) 8 % (20-46); MONOCYTES % (MANUAL) 7 % (5-12)
[2019-08-05] MEDS: ASPIRIN 81 MG TAB.CHEW PO SCH (08:14)
[2019-08-05] MEDS: NICOTINE TRANSD SYS 21 MG/24 HR PATCH TD SCH (08:14)
[2019-08-05] MEDS: FUROSEMIDE 20 MG/2 ML VIAL IVP SCH ×2 (08:14→20:22)
[2019-08-05] MEDS: CARVEDILOL 3.125 MG TAB PO SCH ×2 (08:14→20:23)
[2019-08-05] MEDS: DOCUSATE 100 MG/10 ML UDC PO SCH ×2 (08:17→20:22)
[2019-08-05] MEDS: LACTULOSE 20 GM/30 ML UDC PO SCH ×2 (08:17→13:27)
[2019-08-05] MEDS: AZITHROMYCIN 250 MG in DEXTROSE 5% 250 ML IV SCH (09:10)
[2019-08-05] MEDS ORDERED: POTASSIUM CHLORIDE 10 MEQ TABER PO SCH (09:15)
[2019-08-05 09:37] LABS: BILIRUBIN,DIRECT 2.5 mg/dL (0.0-0.3); TOTAL BILIRUBIN 4.3 mg/dL (0.0-1.0)
[2019-08-05] MEDS ORDERED: SODIUM PHOS / POTASSIUM PHOS 1 PKT PDR PO SCH (10:00)
[2019-08-05] MEDS: hePARIN / DEXT 5% PREMIX 250 ML IV SCH (20:51)
[2019-08-06 00:20] VITALS: BP 102/69
[2019-08-06 04:00] VITALS: BP 124/78
[2019-08-06 07:16] LABS: HEMATOCRIT 44.3 % (36-52); HEMOGLOBIN 14.6 g/dL (12.0-18.0); MEAN CORPUSCULAR HEMOGLOBIN 31 pg (27-31); MEAN CORPUSCULAR HGB CONC 33 g/dL (33-37); PLATELET COUNT (AUTO) 215 K/uL (140-450); RED BLOOD CELL COUNT(AUTO) 4.72 MIL/uL (4.20-6.10); RED CELL DISTRIBUTION WIDTH 15.9 % (11.6-13.7); WHITE BLOOD COUNT (AUTO) 12.5 K/uL (4.8-10.8)
[2019-08-06 07:34] LABS: ANION GAP 12.1 (8-16); CARBON DIOXIDE 26.4 mmol/L (21-32); CREATININE 1.4 mg/dL (0.6-1.3); POTASSIUM 3.5 mmol/L (3.5-5.1)
[2019-08-06 07:38] LABS: MAGNESIUM 2.1 mg/dL (1.8-2.4); PHOSPHORUS 2.8 mg/dL (2.5-4.9)
[2019-08-06 07:39] LABS: ALBUMIN 2.9 g/dL (3.4-5.0); BILIRUBIN,DIRECT 2.6 mg/dL (0.0-0.3); TOTAL BILIRUBIN 4.8 mg/dL (0.0-1.0)
[2019-08-06 08:00] VITALS: BP 117/71
[2019-08-06 08:20] LABS: LYMPHOCYTES % (MANUAL) 13 % (20-46); MONOCYTES % (MANUAL) 11 % (5-12)
[2019-08-06] MEDS: DOCUSATE 100 MG/10 ML UDC PO SCH ×2 (08:39→20:38)
[2019-08-06] MEDS: FUROSEMIDE 20 MG/2 ML VIAL IVP SCH ×2 (08:39→20:38)
[2019-08-06] MEDS: NICOTINE TRANSD SYS 21 MG/24 HR PATCH TD SCH (08:39)
[2019-08-06] MEDS: AZITHROMYCIN 250 MG in DEXTROSE 5% 250 ML IV SCH (08:39)
[2019-08-06] MEDS: CARVEDILOL 3.125 MG TAB PO SCH ×2 (08:40→20:39)
[2019-08-06] MEDS: ASPIRIN 81 MG TAB.CHEW PO SCH (08:41)
[2019-08-06 11:24] LABS: PROTHROMBIN TIME 14.6 secs (10.8-13.4)
[2019-08-06 12:00] VITALS: BP 101/66
[2019-08-06] MEDS ORDERED: LACTULOSE 20 GM/30 ML UDC PO SCH (14:15)
[2019-08-06 16:00] VITALS: BP 108/69
[2019-08-06 20:00] VITALS: BP 108/57
[2019-08-07] VITALS: BP 104/62
[2019-08-07] MEDS: hePARIN / DEXT 5% PREMIX 250 ML IV SCH (02:49)
[2019-08-07] MEDS: SIMETHICONE 80 MG TAB.CHEW PO PRN ×2 (03:31→09:11)
[2019-08-07 04:00] VITALS: BP 103/68
[2019-08-07 06:15] LABS: HEMATOCRIT 45.2 % (36-52); HEMOGLOBIN 14.7 g/dL (12.0-18.0); MEAN CORPUSCULAR HEMOGLOBIN 31 pg (27-31); MEAN CORPUSCULAR HGB CONC 33 g/dL (33-37); MEAN CORPUSCULAR VOLUME 95.1 fL (80-94); PLATELET COUNT (AUTO) 224 K/uL (140-450); RED BLOOD CELL COUNT(AUTO) 4.76 MIL/uL (4.20-6.10); RED CELL DISTRIBUTION WIDTH 15.2 % (11.6-13.7); WHITE BLOOD COUNT (AUTO) 10.6 K/uL (4.8-10.8)
[2019-08-07 06:45] LABS: ALBUMIN 3.1 g/dL (3.4-5.0); CREATININE 1.4 mg/dL (0.6-1.3); TOTAL BILIRUBIN 4.3 mg/dL (0.0-1.0)
[2019-08-07 06:59] LABS: EOSINOPHILS % (MANUAL) 1 % (0-4); LYMPHOCYTES % (MANUAL) 16 % (20-46); MONOCYTES % (MANUAL) 10 % (5-12)
[2019-08-07 08:00] VITALS: BP 102/73
[2019-08-07] MEDS: FUROSEMIDE 20 MG/2 ML VIAL IVP SCH (08:55)
[2019-08-07] MEDS: NICOTINE TRANSD SYS 21 MG/24 HR PATCH TD SCH (08:56)
[2019-08-07] MEDS: DOCUSATE 100 MG/10 ML UDC PO SCH ×2 (08:56→20:31)
[2019-08-07] MEDS: LACTULOSE 20 GM/30 ML UDC PO SCH ×3 (08:56→16:42)
[2019-08-07] MEDS: CARVEDILOL 3.125 MG TAB PO SCH ×2 (08:56→20:47)
[2019-08-07] MEDS: ASPIRIN 81 MG TAB.CHEW PO SCH (09:04)
[2019-08-07] MEDS ORDERED: AZITHROMYCIN 250 MG in DEXTROSE 5% 250 ML IV SCH (10:00)
[2019-08-07 12:00] VITALS: BP 102/71
[2019-08-07] MEDS ORDERED: BUMETANIDE 1 MG/4 ML VIAL IV SCH (15:00)
[2019-08-07 16:00] VITALS: BP 105/72
[2019-08-07 20:00] VITALS: BP 100/60
[2019-08-08] VITALS: BP 100/62
[2019-08-08 04:00] VITALS: BP 99/60
[2019-08-08 07:37] LABS: HEMATOCRIT 47.6 % (36-52); HEMOGLOBIN 15.5 g/dL (12.0-18.0); MEAN CORPUSCULAR HEMOGLOBIN 31 pg (27-31); MEAN CORPUSCULAR HGB CONC 33 g/dL (33-37); MEAN CORPUSCULAR VOLUME 94.3 fL (80-94); PLATELET COUNT (AUTO) 262 K/uL (140-450); RED BLOOD CELL COUNT(AUTO) 5.05 MIL/uL (4.20-6.10); RED CELL DISTRIBUTION WIDTH 16.2 % (11.6-13.7); WHITE BLOOD COUNT (AUTO) 10.6 K/uL (4.8-10.8)
[2019-08-08 07:52] LABS: ALBUMIN 3.6 g/dL (3.4-5.0); ANION GAP 12.8 (8-16); CARBON DIOXIDE 28.8 mmol/L (21-32); CREATININE 1.7 mg/dL (0.6-1.3); POTASSIUM 3.6 mmol/L (3.5-5.1); TOTAL BILIRUBIN 3.7 mg/dL (0.0-1.0)
[2019-08-08 08:00] VITALS: BP 95/55
[2019-08-08] MEDS ORDERED: LISINOPRIL 5 MG TAB PO SCH (09:00)
[2019-08-08] MEDS ORDERED: FUROSEMIDE 20 MG/2 ML VIAL IVP SCH (09:00)
[2019-08-08] MEDS: CARVEDILOL 3.125 MG TAB PO SCH ×2 (09:00→20:30)
[2019-08-08 09:07] LABS: EOSINOPHILS % (MANUAL) 1 % (0-4); LYMPHOCYTES % (MANUAL) 16 % (20-46); MONOCYTES % (MANUAL) 14 % (5-12)
[2019-08-08] MEDS ORDERED: POTA10TE30 PO (09:48)
[2019-08-08] MEDS: ECOTRIN 81 MG TABEC PO SCH (10:09)
[2019-08-08] MEDS: DOCUSATE 100 MG/10 ML UDC PO SCH ×2 (10:10→20:29)
[2019-08-08] MEDS: LACTULOSE 20 GM/30 ML UDC PO SCH ×3 (10:10→17:01)
[2019-08-08] MEDS: NICOTINE TRANSD SYS 21 MG/24 HR PATCH TD SCH (10:11)
[2019-08-08] MEDS: BENZONATATE 100 MG CAPLF PO PRN ×3 (11:49→15:19)
[2019-08-08 12:00] VITALS: BP 98/58
[2019-08-08] MEDS ORDERED: LACT10SO1 PO (14:12)
[2019-08-08] MEDS ORDERED: LACT-81 PO (14:12)
[2019-08-08] MEDS ORDERED: AMOX-999 PO (14:12)
[2019-08-08] MEDS ORDERED: LISI10TA11 PO (14:15)
[2019-08-08] MEDS ORDERED: BENZ-196 PO (15:28)
[2019-08-08 16:00] VITALS: BP 100/59
[2019-08-09] VITALS: BP 105/72
[2019-08-09 07:05] LABS: HEMATOCRIT 42.1 % (36-52); HEMOGLOBIN 13.6 g/dL (12.0-18.0); MEAN CORPUSCULAR HEMOGLOBIN 31 pg (27-31); MEAN CORPUSCULAR HGB CONC 32 g/dL (33-37); MEAN CORPUSCULAR VOLUME 94.4 fL (80-94); PLATELET COUNT (AUTO) 226 K/uL (140-450); RED BLOOD CELL COUNT(AUTO) 4.46 MIL/uL (4.20-6.10); RED CELL DISTRIBUTION WIDTH 15.8 % (11.6-13.7); WHITE BLOOD COUNT (AUTO) 10.3 K/uL (4.8-10.8)
[2019-08-09 07:17] LABS: ANION GAP 11.1 (8-16); CARBON DIOXIDE 28.7 mmol/L (21-32); CREATININE 1.4 mg/dL (0.6-1.3); POTASSIUM 3.8 mmol/L (3.5-5.1)
[2019-08-09 07:52] LABS: EOSINOPHILS % (MANUAL) 1 % (0-4); LYMPHOCYTES % (MANUAL) 16 % (20-46); MONOCYTES % (MANUAL) 9 % (5-12)
[2019-08-09 08:00] VITALS: BP 105/60
[2019-08-09] MEDS: DOCUSATE 100 MG/10 ML UDC PO SCH (09:00)
[2019-08-09] MEDS: LACTULOSE 20 GM/30 ML UDC PO SCH (09:00)
[2019-08-09] MEDS ORDERED: LISINOPRIL 5 MG TAB PO SCH (09:00)
[2019-08-09] MEDS ORDERED: FUROSEMIDE 40 MG TAB PO SCH (09:00)
[2019-08-09] MEDS: NICOTINE TRANSD SYS 21 MG/24 HR PATCH TD SCH (09:27)
[2019-08-09] MEDS: CARVEDILOL 3.125 MG TAB PO SCH (09:28)
[2019-08-09] MEDS: ECOTRIN 81 MG TABEC PO SCH (09:28)
[2019-08-09] MEDS ORDERED: AZIT250T3 PO (13:32)
[2019-08-09] MEDS ORDERED: LACT-81 PO (13:34)
== END 2019-08-09 09:50 | disposition home or self-care (01) | DRG 720 ==
LOC: MED 14:13 → MERGE 14:13 → MIC 15:39 → MTU 08-07 12:32
PROVIDERS: ADMIT General Practice; ATTEND General Practice
DX: A41.9 Sepsis, unspecified organism (principal); I21.A1 Myocardial infarction type 2; N17.0 Acute kidney failure with tubular necrosis; I50.43 Acute on chronic combined systolic (congestive) and diastolic (congestive) heart failure; J96.01 Acute respiratory failure with hypoxia; J96.02 Acute respiratory failure with hypercapnia; J18.9 Pneumonia, unspecified organism; I11.0 Hypertensive heart disease with heart failure; I42.0 Dilated cardiomyopathy; E83.39 Other disorders of phosphorus metabolism; E66.9 Obesity, unspecified; F15.10 Other stimulant abuse, uncomplicated; F17.210 Nicotine dependence, cigarettes, uncomplicated; F41.9 Anxiety disorder, unspecified; Z96.649 Presence of unspecified artificial hip joint; K75.9 Inflammatory liver disease, unspecified; E87.1 Hypo-osmolality and hyponatremia; E87.6 Hypokalemia; K72.90 Hepatic failure, unspecified without coma; G47.33 Obstructive sleep apnea (adult) (pediatric); I42.7 Cardiomyopathy due to drug and external agent; T43.625A Adverse effect of amphetamines, initial encounter; Y92.89 Other specified places as the place of occurrence of the external cause; Z90.81 Acquired absence of spleen; Z91.19 Patient's noncompliance with other medical treatment and regimen; Z79.899 Other long term (current) drug therapy; Z79.82 Long term (current) use of aspirin; Z71.51 Drug abuse counseling and surveillance of drug abuser; Z68.33 Body mass index [BMI] 33.0-33.9, adult
CPT/HCPCS: 36415; 36600; 71045; 76700; 80048; 80053; 80076; 80202; 80305; 81001; 82140; 82150; 82803; 83036; 83605; 83690; 83735; 83880; 84100; 84134; 84300; 84439; 84443; 84484; 85025; 85379; 85610; 85730; 86140; 86704; 86706; 86708; 86709; 86803; 87040; 87081; 87086; 87340; 87804; 93005; 94640; 94664; 96365; 96375; 99291; G0480; J0456; J0696; J1644; J1940; J1956; J2060; J3370; J3490; J3535; J7030; J7060; Q0092; U0002

== ENCOUNTER 2019-08-13 13:49 | Inpatient (IN) | payer MEDICAID, SELFPAY ==
[~2019-08-13] VITALS: Ht 177.8 cm; Wt 97.5 kg
[~2019-08-13 13:49] MED LIST changes: -ATOR40TA PO; +AZIT250T3 PO; +BENZ-196 PO; +LACT-81 PO; +LACT10SO1 PO; +POTA10TE30 PO
[2019-08-13] MEDS ORDERED: FUROSEMIDE 40 MG/4 ML VIAL IVP ONE (14:00)
[2019-08-13 14:09] VITALS: BP 110/79
--- NOTE | 2019-08-13 14:10 | NUR ---
BIBA BLS C/O SOB THIS MORNING , DISCHARGE 4 DAYS AGO FOR PN , PT AWAKE , ALERT, AFIBRILE , SCE , COARSE BS BLF , ROUND SOFT ABDOMEN , NONTENDER. PMHX COPD MEDS.
--- NOTE | 2019-08-13 14:11 | NUR ---
LABS AT BEDSIDE DRAWING BLOOD.
--- NOTE | 2019-08-13 14:16 | NUR ---
EKG PERFORMED AT BEDSIDE
[2019-08-13 14:32] LABS: BASOPHILS # (AUTO) 0.1 K/uL (0.00-0.22); BASOPHILS % (AUTO) 1.8 % (0.0-2.0); EOSINOPHILS # (AUTO) 0.1 K/uL (0-0.4); EOSINOPHILS % (AUTO) 1.5 % (0.0-4.0); HEMATOCRIT 44.3 % (36-52); LYMPHOCYTES # (AUTO) 1.2 K/uL (2.0-11.5); LYMPHOCYTES % (AUTO) 15.6 % (20.5-51.1); MEAN CORPUSCULAR HEMOGLOBIN 31 pg (27-31); MEAN CORPUSCULAR HGB CONC 32 g/dL (33-37); MEAN CORPUSCULAR VOLUME 96.4 fL (80-94); MONOCYTES # (AUTO) 1.1 K/uL (0.8-1.0); MONOCYTES % (AUTO) 14.8 % (1.7-9.3); NEUTROPHILS # (AUTO) 5.1 K/uL (1.8-7.7); NEUTROPHILS % (AUTO) 66.3 % (42.2-75.2); PLATELET COUNT (AUTO) 218 K/uL (140-450); RED BLOOD CELL COUNT(AUTO) 4.59 MIL/uL (4.20-6.10); RED CELL DISTRIBUTION WIDTH 16.6 % (11.6-13.7); WHITE BLOOD COUNT (AUTO) 7.7 K/uL (4.8-10.8)
--- NOTE | 2019-08-13 14:32 | NUR ---
XRAY AT BEDSIDE.
[2019-08-13 14:49] LABS: ALBUMIN 2.8 g/dL (3.4-5.0); ANION GAP 10.8 (8-16); CARBON DIOXIDE 24.7 mmol/L (21-32); CREATININE 1.1 mg/dL (0.6-1.3); POTASSIUM 4.5 mmol/L (3.5-5.1); TOTAL BILIRUBIN 1.5 mg/dL (0.0-1.0)
--- NOTE | 2019-08-13 15:23 | NUR ---
PT LYING COMFORTABLY IN BED , V/S STABLE , SIDE RAILS UP X 1 AND LOCK.
--- NOTE | 2019-08-13 15:34 | NUR ---
dr vila at bedside evaluating pt.
[2019-08-13] MEDS ORDERED: ONDANSETRON 4 MG/2 ML VIAL IM/IVP PRN (15:45)
[2019-08-13] MEDS ORDERED: ACETAMINOPHEN 325 MG TAB PO PRN (15:45)
[2019-08-13] MEDS ORDERED: DOCUSATE SODIUM 100 MG GELCAP PO PRN (15:45)
[2019-08-13 16:10] VITALS: BP 121/59
--- NOTE | 2019-08-13 16:10 | NUR ---
RECEIVED BEDSIDE REPORT FROM ED NURSE. PT RESTING IN BED. ABLE TO MAKE NEEDS KNOWN. RESPIRATIONS EVEN AND UNLABORED WITH NO SOB OR RESPIRATORY DISTRESS. SKIN WARM AND DRY TO TOUCH. IV SITE IN LAC 20G IS CLEAN, DRY, AND INTACT. MRSA SWAB COLLECTED. PT TOLERATED WELL. SAFETY MEASURES IN PLACE. WILL CONTINUE TO MONITOR
--- NOTE | 2019-08-13 16:10 | NUR ---
Patient will be admitted to care of Dr corrales. Admited to [facility]. Will go to room 126B Belongings list completed. Report to esther gaspar.
[2019-08-13] MEDS ORDERED: BENZONATATE 100 MG CAPLF PO PRN (16:40)
[2019-08-13] MEDS ORDERED: DICYCLOMINE HCL LIQUID 10 MG/5 ML UDC PO SCH (17:00)
[2019-08-13] MEDS ORDERED: LIDOCAINE VISCOUS 2% 20 ML UDC PO SCH (17:00)
[2019-08-13] MEDS ORDERED: guaiFENesin DM 200/20 MG-10 ML 10 ML UDC PO SCH (17:00)
[2019-08-13] MEDS ORDERED: ALUMINUM HYD/MAG/SIMETHICONE 30 ML UDC PO SCH (17:00)
[2019-08-13] MEDS ORDERED: BENZONATATE 100 MG CAPLF PO SCH (17:00)
[2019-08-13 17:16] LABS: FREE T4 (FREE THYROXINE) 1.04 ng/dL (0.76-1.46); MAGNESIUM 1.9 mg/dL (1.8-2.4); PHOSPHORUS 3.2 mg/dL (2.5-4.9); THYROID STIMULATING HORMONE 2.07 uIU/mL (0.34-3.74)
--- NOTE | 2019-08-13 17:59 | NUR ---
ADMINISTERED SCHED MED PRESCRIBED PER MD ORDER. PT TOLERATED WELL. MEDICATION EDUCATION PERFORMED. PT VERBALIZED UNDERSTANDING. SAFETY MEASURES IN PLACE. WILL CONTINUE TO MONITOR
--- NOTE | 2019-08-13 19:16 | NUR ---
ENDORSED AT BEDSIDE TO NIGHTSHIFT NURSE. PT IS STABLE.
--- NOTE | 2019-08-13 19:18 | NUR ---
RECEIVED REPORT FROM DAY SHIFT NURSE. PATIENT IN BED RESTING. HOB ELEVATED. WITH O2 2LPM VIA NC. RESPIRATIONS EVEN AND UNLABORED. SKIN IS WARM AND DRY. WITH IV G20 ON L AC. SALINE LOCKED. DENIES ANY PAIN OR DISCOMFORT AT THIS TIME. SAFETY MEASURES IN PLACE. BED IN LOW POSITION, SIDE RAILS RAISED, CALL LIGHT WITHIN REACH. WILL CONTINUE TO MONITOR.
[2019-08-13 20:00] VITALS: BP 101/67
--- NOTE | 2019-08-13 20:05 | NUR ---
ROUNDS DONE. PATIENT IN BED SLEEPING. PATIENT ON LEFT LATERAL POSITION. O2 NOT IN PLACE. PROVIDED TEACHING REGARDING IMPORTANCE OF OXYGEN. PATIENT REFUSED STILL. VITAL SIGNS TAKEN. BP 101/67 RR 24 O2 SAT 99%. CARVEDILOL NOT GIVEN. PATIENT DENIES ANY PAIN OR DISTRESS. SAFETY MEASURES IN PLACE. BED IN LOW POSITION, SIDE RAILS RAISED. CALL LIGHT WITHIN REACH. WILL CONTINUE TO MONITOR.
[2019-08-13] MEDS: CARVEDILOL 3.125 MG TAB PO SCH (20:12)
--- NOTE | 2019-08-13 21:15 | NUR ---
PATIENT VERBALIZED DIFFICULTY BREATHING AFTER GOING TO RESTROOM. INSTRUCTED TO REST AND USE HIS OXYGEN. OXYGEN 3LPM VIA NC IN PLACE. HOB ELEVATED. O2 SAT 98% RR 22. WILL CONTINUE TO MONITOR.
[2019-08-13 21:29] LABS: APPEARANCE,URINE CLEAR (CLEAR); BILIRUBIN,URINE NEGATIVE (NEGATIVE); BLOOD, URINE NEGATIVE (NEGATIVE); COLOR,URINE YELLOW (YELLOW); LEUKOCYTE ESTERASE ,URINE NEGATIVE (NEGATIVE); NITRITE, URINE NEGATIVE (NEGATIVE); PH,URINE 6.5 (5.0-9.0); UGLUCOSE NEGATIVE (NEGATIVE)
[2019-08-13 21:42] LABS: BARBITURATE, URINE NEGATIVE ng/ml (NEG <=200); BENZODIAZEPINE, URINE NEGATIVE ng/mL (NEG <=200); CANNABINOID, URINE NEGATIVE ng/mL (NEG <=50); COCAINE, URINE NEGATIVE ng/mL (NEG <=300); OPIATE, URINE NEGATIVE ng/mL (NEG <=2000); PHENCYCLIDINE SCREEN,URINE NEGATIVE ng/mL (NEG <=25)
--- NOTE | 2019-08-13 23:26 | NUR ---
ROUNDS DONE. PATIENT IN BED SLEEPING. ON SIDE LYING POSITION. OXYGEN 3LPM/NC IN PLACE. NO SIGNS AND SYMPTOMS OF DISTRESS NOTED. SAFETY MEASURES IN PLACE. KEPT COMFORTABLE. WILL CONTINUE TO MONITOR.
[2019-08-14] VITALS: BP 119/80
--- NOTE | 2019-08-14 00:31 | NUR ---
ROUNDS DONE. PATIENT IN BED WITH HOB ELEVATED. ON O2 3LPM VIA NC. RESPIRATIONS EVEN AND UNLABORED. SKIN IS WARM AND DRY. VITAL SIGNS ARE STABLE. NO COMPLAINTS OF ANY DISTRESS AT THIS TIME. SAFETY MEASURES IN PLACE. KEPT COMFORTABLE. WILL CONTINUE TO MONITOR.
--- NOTE | 2019-08-14 02:05 | NUR ---
ROUNDS MADE. PATIENT AWAKE SITTING IN BED. ON O2 3LPM VIA NC. RESPIRATIONS EVEN AND UNLABORED. DENIES ANY PAIN OR DISCOMFORT AT THIS TIME. PATIENT REQUESTED FOR SOMETHING TO DRINK. GAVE WATER. SAFETY MEASURES IN PLACE. WILL CONTINUE TO MONITOR.
[2019-08-14 04:00] VITALS: BP 111/78
--- NOTE | 2019-08-14 04:05 | NUR ---
ROUNDS DONE. PATIENT IN BED. HOB ELEVATED. O2 3LPM VIA NC. VITALS TAKEN. PATIENT VERBALIZED DIFFICULTY BREATHING. RR 25. RESPIRATIONS ARE LABORED. O2 SAT 98. MD AWARE. ORDER FOR BREATHING TREATMENT PLACED. FOLLOWED UP WITH RT. WILL CONTINUE TO MONITOR.
[2019-08-14] MEDS ORDERED: ALBUTEROL SULFATE/IPRATROPIU 3 ML SOL IH PRN (04:20)
[2019-08-14] MEDS ORDERED: ALBUTEROL SULFATE/IPRATROPIU 3 ML SOL IH ONE (04:33)
--- NOTE | 2019-08-14 05:24 | NUR ---
PATIENT PLACED ON BIPAP. PATIENT IN BED. HOB ELEVATED. RESPIRATIONS ARE EVEN AND UNLABORED. NO SIGNS OF DISTRESS NOTED. O2 SAT 100%. SAFETY MEASURES IN PLACE. WILL CONTINUE TO MONITOR.
--- NOTE | 2019-08-14 05:30 | NUR ---
CALLED TO BEDSIDE DUE TO PATIENT INCREASED WORK OF BREATHING. PATIENT ON 3L NASAL CANNULA, PULSE OX 97%. PRN BREATHING TREATMENT ADMINISTERED. TOLERATED TX WELL WITHOUT ADVERSE SIDE EFFECTS. PT STATES SLIGHT IMPROVEMENT BUT CONTINUES TO COMPLAIN OF SHORTNESS OF BREATH. RESIDENT PHYSICIAN NOTIFIED. PLACED PT ON BIPAP. BIPAP CHECK DONE. BIPAP PLUGGED INTO RED OUTLET. BIPAP ALARMS ON AND AUDIBLE. DONNING AND DOFFING OF EQUIPMENT TAUGHT TO PATIENT, PATIENT VERBALIZES UNDERSTANDING. SKIN PROTECTIVE GEL BARRIER IN PLACE. ALL QUESTIONS ANSWERED AND NEEDS MET. RN MADE AWARE. CONTINUOUS PULSE OX ON AND FUNCTIONING; ALARMS ON AND AUDIBLE. PATIENT STATES IMPROVEMENT. WILL CONTINUE TO MONITOR.
[2019-08-14 06:08] LABS: ANION GAP 13.1 (8-16); CARBON DIOXIDE 25.5 mmol/L (21-32); CREATININE 1.2 mg/dL (0.6-1.3); POTASSIUM 4.6 mmol/L (3.5-5.1)
[2019-08-14 06:18] LABS: CHOL/HDL RATIO 3.4 (1-4.5)
[2019-08-14 06:33] LABS: BASOPHILS # (AUTO) 0.1 K/uL (0.00-0.22); BASOPHILS % (AUTO) 1.3 % (0.0-2.0); EOSINOPHILS # (AUTO) 0.1 K/uL (0-0.4); EOSINOPHILS % (AUTO) 1.8 % (0.0-4.0); HEMATOCRIT 42.3 % (36-52); HEMOGLOBIN 13.7 g/dL (12.0-18.0); LYMPHOCYTES # (AUTO) 1.6 K/uL (2.0-11.5); LYMPHOCYTES % (AUTO) 19.6 % (20.5-51.1); MEAN CORPUSCULAR HEMOGLOBIN 31 pg (27-31); MEAN CORPUSCULAR HGB CONC 32 g/dL (33-37); MONOCYTES # (AUTO) 1.1 K/uL (0.8-1.0); MONOCYTES % (AUTO) 13.4 % (1.7-9.3); NEUTROPHILS # (AUTO) 5.3 K/uL (1.8-7.7); NEUTROPHILS % (AUTO) 63.9 % (42.2-75.2); PLATELET COUNT (AUTO) 248 K/uL (140-450); RED BLOOD CELL COUNT(AUTO) 4.45 MIL/uL (4.20-6.10); RED CELL DISTRIBUTION WIDTH 16.2 % (11.6-13.7); WHITE BLOOD COUNT (AUTO) 8.3 K/uL (4.8-10.8)
[2019-08-14] MEDS: FUROSEMIDE 40 MG/4 ML VIAL IVP SCH ×2 (06:57→09:52)
--- NOTE | 2019-08-14 06:57 | NUR ---
FOUND PT ON ROOM AIR. NO DISTRESS
--- NOTE | 2019-08-14 07:05 | NUR ---
UNABLE TO GET ABG AT THIS TIME. WILL TRY AGAIN LATER.
--- NOTE | 2019-08-14 07:10 | NUR ---
ENDORSED PATIENT TO DAY SHIFT NURSE. PATIENT ON BIPAP. RT AT BEDSIDE. NO COMPLAINS AT THIS TIME. DENIES ANY PAIN OF DISCOMFORT. BREATHING IS EVEN AND UNLABORED. O2 SAT 99%. PLAN OF CARE DISCUSSED. PATIENT IN STABLE CONDITION.
[2019-08-14 08:00] VITALS: BP 127/83
--- NOTE | 2019-08-14 08:15 | NUR ---
OBTAINED COVID 19 SCREENING PRESCRIBED PER MD ORDER. PT TOLERATED WELL. SPECIMEN SENT DOWN TO LAB
--- NOTE | 2019-08-14 08:41 | NUR ---
PLACED PT BACK ON BIPAP SETTINGS: 04/19 RR14 24% Ti 1.0 RISE: 3
--- NOTE | 2019-08-14 08:42 | NUR ---
PATIENT HAS BEEN SCREENED AND CATEGORIZED MODERATE NUTRITION RISK. PATIENT WILL BE SEEN WITHIN 3-5 DAYS OF ADMISSION. 08/16/19 08/18/[address]
[2019-08-14] MEDS ORDERED: FUROSEMIDE 40 MG/4 ML VIAL IVP SCH ×2 (09:00→11:15)
--- NOTE | 2019-08-14 09:15 | NUR ---
OBTAINED INFLUENZA NARES SCREENING SWAB PRESCRIBED PER MD ORDER. PT TOLERATED WELL. SPECIMEN SENT DOWN TO LAB. SAFETY MEASURES IN PLACE. WILL CONTINUE TO MONITOR
[2019-08-14] MEDS: LOSARTAN 25 MG TAB PO SCH (09:52)
[2019-08-14] MEDS: POTASSIUM CHLORIDE 10 MEQ TABER PO SCH (09:52)
[2019-08-14] MEDS: CARVEDILOL 3.125 MG TAB PO SCH ×2 (09:53→21:00)
[2019-08-14] MEDS: ASPIRIN 81 MG TAB.CHEW PO SCH (09:53)
--- NOTE | 2019-08-14 09:53 | NUR ---
ADMINISTERED SCHED MED PRESCRIBED PER MD ORDER. PT TOLERATED WELL. MEDICATION EDUCATION PERFORMED. PT VERBALIZED UNDERSTANDING. SAFETY MEASURES IN PLACE. WILL CONTINUE TO MONITOR
[2019-08-14] MEDS: FAMOTIDINE 20 MG TAB PO SCH (09:54)
--- NOTE | 2019-08-14 11:35 | NUR ---
PT TAKEN OFF BIPAP DUE TO COVID RULE OUT. PLACED ON NASAL CANNULA 2L SPO2 98%. NO DISTRESS SECOND ABG ATTEMPTED AT 1030. UNABLE TO GET AT THIS TIME.
[2019-08-14 12:00] VITALS: BP 123/85
[2019-08-14] MEDS ORDERED: AZITHROMYCIN 500 MG in DEXTROSE 5% 250 ML IV SCH (13:00)
--- NOTE | 2019-08-14 13:14 | NUR ---
ADMINISTERED SCHED MED PRESCRIBED PER MD ORDER. PT TOLERATED WELL. MEDICATION EDUCATION PERFORMED. PT VERBALIZED UNDERSTANDING. SAFETY MEASURES IN PLACE. WILL CONTINUE TO MONITOR
--- NOTE | 2019-08-14 14:00 | NUR ---
INFLUENZA MICROBIOLOGY RESULTS ARRIVED AND PT IS NEGATIVE FOR INFLUENZA A AND B. SAFETY MEASURES IN PLACE. WILL CONTINUE TO MONITOR
[2019-08-14] MEDS ORDERED: ALBUTEROL HFA MDI 90 MCG/ACTUATION 8 GM INH PRN (15:05)
--- NOTE | 2019-08-14 15:13 | NUR ---
DC PLANN[age] YRS OLD MALE PATIENT WAS ADMITTED FROM HOME WITH A DX OF CHF EXACERBATION, ELEVATED TROPONIN. PT HAS A HX OF METH ABUSE, AND CHF. PT HAS BEEN RECENTLY DISCHARGED FROM [facility] AFTER BEING TREATED FOR PNA. CXRAY SHOWED CARDIOMEGALY WITH MILD PULMONARY VASCULAR CONGESTION AND POSSIBLE INTERSTITIAL EDEMA. STARTED ON IV LASIX CONTINUE HOME MEDS AND CARDIOLOGY CONSULT . DC PLAN TO GO HOME WHEN STABLE CM TO FOLLOW. Addendum: 08/15/19 at 1118 by Gabrielle Iyer CM FOR DC TODAY, NO NEEDS.
--- NOTE | 2019-08-14 15:56 | NUR ---
HOURLY ROUNDING. PT RESTING IN BED. ABLE TO MAKE NEEDS KNOWN. RESPIRATIONS EVEN AND UNLABORED WITH NO SOB OR RESPIRATORY DISTRESS. SKIN WARM AND DRY TO TOUCH. SAFETY MEASURES IN PLACE. WILL CONTINUE TO MONITOR
[2019-08-14 16:00] VITALS: BP 116/80
--- NOTE | 2019-08-14 19:07 | NUR ---
ENDORSED AT BEDSIDE TO NIGHTSHIFT NURSE. PT IS STABLE
--- NOTE | 2019-08-14 19:08 | NUR ---
RECEIVED REPORT FROM DAY SHIFT NURSE. PLAN OF CARE DISCUSSED. PATIENT IN BED RESTING. HOB ELEVATED. ON O2 3L/NC. RESPIRATIONS EVEN AND UNLABORED. DENIES ANY PAIN OR DISCOMFORT. PATIENT KEPT COMFORTABLE. SAFETY MEASURES IN PLACE. BED IN LOW POSITION, SIDE RAILS RAISED, CALL LIGHT WITHIN REACH. AIRBORNE AND CONTACT PRECAUTIONS OBSERVED. WILL CONTINUE TO MONITOR.
[2019-08-14 20:49] VITALS: BP 102/62
--- NOTE | 2019-08-14 20:54 | NUR ---
PATIENT SITTING IN BED. O2 REMOVED. PATIENT GIVEN TEACHING REGARDING O2 IMPORTANCE. PATIENT REFUSED STILL BUT WILL PUT IT IN ON IN A FEW MINS. VITAL SIGNS TAKEN. BP 101/62. CARVEDILOL NOT GIVEN. RR 22. O2 SAT 94% ON RA. SAFETY MEASURES IN PLACE. CALL LIGHT WITHIN REACH. WILL CONTINUE TO MONITOR.
[2019-08-15] VITALS: BP 109/68
--- NOTE | 2019-08-15 00:23 | NUR ---
PATIENT IN BED RESTING. VITAL SIGNS STABLE. PATIENT DENIES ANY PAIN OR DISCOMFORT. ON O2 3LPM/NC. O2 SAT 97%. SAFETY MEASURES IN PLACE. WILL CONTINUE TO MONITOR.
--- NOTE | 2019-08-15 01:30 | NUR ---
ROUNDS DONE. PATIENT SLEEPING IN BED. NO SIGNS AND SYMPTOMS OF DISTRESS NOTED. SAFETY MEASURES IN PLACE. WILL CONTINUE TO MONITOR.
--- NOTE | 2019-08-15 03:19 | NUR ---
PATIENT IN BED SLEEPING. ON O2 3LPM/NC. NO SIGNS AND SYMPTOMS OF DISTRESS NOTED. SAFETY MEASURES IN PLACE. BED IN LOW POSITION, SIDE RAILS RAISED, CALL LIGHT WITHIN REACH. WILL CONTINUE TO MONITOR.
[2019-08-15 04:00] VITALS: BP 96/65
--- NOTE | 2019-08-15 04:20 | NUR ---
PATIENT IN BED RESTING. VITAL SIGNS STABLE AT THIS TIME. DENIES ANY PAIN OR DISCOMFORT. PATIENT REMOVED O2 AT THIS TIME. WILL PUT BACK ON IN A FEW MINS. TEACHINGS GIVEN ON IMPORTANCE OF O2. SAFETY MEASURES IN PLACE. WILL CONTINUE TO MONITOR.
[2019-08-15 06:12] LABS: ANION GAP 10.7 (8-16); CARBON DIOXIDE 30.6 mmol/L (21-32); CREATININE 1.3 mg/dL (0.6-1.3); POTASSIUM 4.3 mmol/L (3.5-5.1)
[2019-08-15 06:16] LABS: BASOPHILS # (AUTO) 0.1 K/uL (0.00-0.22); BASOPHILS % (AUTO) 1.2 % (0.0-2.0); EOSINOPHILS # (AUTO) 0.1 K/uL (0-0.4); EOSINOPHILS % (AUTO) 0.8 % (0.0-4.0); HEMATOCRIT 41.4 % (36-52); HEMOGLOBIN 13.5 g/dL (12.0-18.0); LYMPHOCYTES # (AUTO) 1.5 K/uL (2.0-11.5); LYMPHOCYTES % (AUTO) 16.4 % (20.5-51.1); MEAN CORPUSCULAR HEMOGLOBIN 31 pg (27-31); MEAN CORPUSCULAR HGB CONC 33 g/dL (33-37); MEAN CORPUSCULAR VOLUME 94.8 fL (80-94); MONOCYTES # (AUTO) 1.2 K/uL (0.8-1.0); MONOCYTES % (AUTO) 13.2 % (1.7-9.3); NEUTROPHILS # (AUTO) 6.1 K/uL (1.8-7.7); NEUTROPHILS % (AUTO) 68.4 % (42.2-75.2); PLATELET COUNT (AUTO) 241 K/uL (140-450); RED BLOOD CELL COUNT(AUTO) 4.37 MIL/uL (4.20-6.10); RED CELL DISTRIBUTION WIDTH 16.2 % (11.6-13.7); WHITE BLOOD COUNT (AUTO) 8.9 K/uL (4.8-10.8)
[2019-08-15] MEDS ORDERED: AZIT250T3 PO (06:25)
[2019-08-15] MEDS ORDERED: AZITHROMYCIN 250 MG in DEXTROSE 5% 250 ML IV SCH (06:30)
--- NOTE | 2019-08-15 07:30 | NUR ---
ENDORSED PATIENT TO DAYSHIFT NURSE. PLAN OF CARE DISCUSSED. PATIENT IN STABLE CONDITION.
[2019-08-15] MEDS ORDERED: AZITHROMYCIN 500 MG INJ VIAL IV ONE (07:42)
--- NOTE | 2019-08-15 07:49 | NUR ---
ZITHROMAX 250MG IVPB IN 250 ADMINISTERED.
[2019-08-15 08:00] VITALS: BP 97/72
[2019-08-15] MEDS ORDERED: LOSA25TA32 PO (08:31)
[2019-08-15] MEDS: FAMOTIDINE 20 MG TAB PO SCH (08:51)
[2019-08-15] MEDS: ASPIRIN 81 MG TAB.CHEW PO SCH (08:51)
[2019-08-15] MEDS: POTASSIUM CHLORIDE 10 MEQ TABER PO SCH (08:51)
[2019-08-15] MEDS ORDERED: BENZ-196 PO (08:51)
[2019-08-15] MEDS: CARVEDILOL 3.125 MG TAB PO SCH ×2 (08:57→10:21)
[2019-08-15] MEDS: LOSARTAN 25 MG TAB PO SCH ×2 (08:57→10:21)
[2019-08-15] MEDS ORDERED: AZITHROMYCIN 500 MG in DEXTROSE 5% 250 ML IV SCH (09:00)
--- NOTE | 2019-08-15 09:00 | NUR ---
PT AMBULATED TO RESTROOM. PT CAME BACK TO BE. NO DISTRESS NOTED. MORNING MEDICATION WAS GIVEN. EXCEPT BLOOD PRESSURE MEDS BECAUSE BLOOD PRESSURE WAS LOW AT 97/72. SAFETY MEASURES IN CHECK. NO COMPLAINS OF PAIN . CALL LIGHT IN REACH.
[2019-08-15] MEDS ORDERED: FUROSEMIDE 40 MG/4 ML VIAL IVP SCH (09:15)
--- NOTE | 2019-08-15 10:16 | NUR ---
Slice Cutting Machine Operator Helper Note: Basic Screen: Yes High Risk DC Screen [place]: YOUNG SUTHERLAND Home Relationship: SISTER Pre-Admission Living Arrangements: Lives with Other Prior ADL Independent Current Home Health Name/Tel: N/A Current DME/02 Name/Tel: N/A Current Hospice Name/Tel: N/A Current Dialysis Name/Tel: N/A Healthcare Decision Maker: Patient Advance Directive No Physician Orders for Life Sustaining Treatment Form No Patient/Family Have Educational Needs No Person Taught: Family Discipline: Case Mgt/Social Svcs Tentative Discharge Plan/Destination: No Needs Identified Will require assistance post discharge: No Referred to Digital Communications Manager: No Tentative Discharge Plan Summary: Patient is a 49 year old male admitted for CHF exacerbation. Patient has PMHX of CHF and methamphetamine abuse. Patient was admitted from home where he lives with his sister. AUNDREA contacted sister Young Sutherland [phone] to verify demographics. Per Young, patient was independent with ADLs at baseline, but since last hospitalization, she has assisted patient preparing meals. Young stated that patient has no mental health history but has been abusing methamphetamines leading to previous hospitalization. offered to mail substance abuse resources to Young, but Young refused. Tentative discharge plan is for patient to return home. No further needs identified. Signature: IRIS Donovan Date: Aug 15, 2019 Time: 10:16
--- NOTE | 2019-08-15 10:21 | NUR ---
PER PHARMACY AZITHROMYCIN 500 MG WAS STARTED AT 0851. PT WAS FEELING FINE. AT AROUND 1000 AM PT SAID HE IS FEELING FUNNY IN HIS STOMACH. VITAL SIGNS TAKEN BP NOTED AT 117/78, PULSE 120, O2 SAT AT 99. ASKED PATIENT TO RELAX. GAVE PATIENT ICE CHIPS. WILL CONTINUE TO MONITOR. CALL LIGHT IN REACH.
--- NOTE | 2019-08-15 11:30 | NUR ---
PT WAS DISCHARGED TO DAY. DISCHARGE INSTRUCTIONS GIVEN TO PATIENT. PT WAS STABLE AT DISCHARGE. NO COMPLAINS OF UPSET STOMACH OR PAIN REPORTED. ID BAND REMOVED. IV REMOVED. NO BLEEDING NOTED. PT'S BELONGINGS WITH PATIENT . PT CALLED SISTER TO PICK HIM UP. PT WAS TAKEN IN WHEEL CHAIR TO MAIN ENTRANCE. PT WAS STABLE AT DISCHARGE.
[2019-08-21] MEDS ORDERED: FURO-570 PO (08:41)
[2019-08-21] MEDS ORDERED: CARV3.12 PO (08:41)
[2019-08-21] MEDS ORDERED: ASPI81CT95 PO (08:41)
[2019-08-21] MEDS ORDERED: ATOR40TA PO (08:41)
[2019-08-21] MEDS ORDERED: LOSA25TA32 PO (08:41)
[2019-08-21] MEDS ORDERED: PRED20TA5 PO (08:41)
== END 2019-08-15 11:45 | disposition home or self-care (01) | DRG 194 ==
LOC: EEVIPCON 13:49 → MED 13:49 → MMU 15:45 → EEVIPCON 15:45
PROVIDERS: ADMIT General Practice; ATTEND General Practice
PROC: 5A09357 Assistance with Respiratory Ventilation, Less than 24 Consecutive Hours, Continuous Positive Airway Pressure (ICD-10-PCS; principal; 2019-08-14)
DX: I50.43 Acute on chronic combined systolic (congestive) and diastolic (congestive) heart failure (principal); J96.01 Acute respiratory failure with hypoxia; I21.A1 Myocardial infarction type 2; I44.4 Left anterior fascicular block; F17.200 Nicotine dependence, unspecified, uncomplicated; F15.10 Other stimulant abuse, uncomplicated; E80.6 Other disorders of bilirubin metabolism; R74.0 Nonspecific elevation of levels of transaminase and lactic acid dehydrogenase [LDH]; K21.9 Gastro-esophageal reflux disease without esophagitis; Z90.81 Acquired absence of spleen; Z79.899 Other long term (current) drug therapy; Z87.01 Personal history of pneumonia (recurrent); Z71.41 Alcohol abuse counseling and surveillance of alcoholic; Z71.51 Drug abuse counseling and surveillance of drug abuser; Z11.59 Encounter for screening for other viral diseases
CPT/HCPCS: 36415; 71045; 80048; 80053; 80305; 81003; 82150; 83605; 83690; 83735; 83880; 84100; 84134; 84439; 84443; 84484; 85025; 85610; 85730; 87040; 87081; 87804; 93005; 94664; 96374; 97110; 97112; 97116; 97161-GP; 97530; 99285; J0456; J1940; J7030; J7060; Q0092

== ENCOUNTER 2019-08-17 13:13 | Inpatient (IN) | payer SELFPAY ==
[~2019-08-17] VITALS: Ht 177.8 cm; Wt 107.5 kg
[~2019-08-17 13:13] MED LIST changes: -LACT10SO1 PO; -LISI10TA11 PO; +LOSA25TA32 PO; -NICO-532 TD
[2019-08-17 13:55] LABS: BASOPHILS # (AUTO) 0.1 K/uL (0.00-0.22); BASOPHILS % (AUTO) 0.8 % (0.0-2.0); EOSINOPHILS % (AUTO) 0.3 % (0.0-4.0); HEMATOCRIT 45.6 % (36-52); HEMOGLOBIN 14.8 g/dL (12.0-18.0); LYMPHOCYTES # (AUTO) 0.8 K/uL (2.0-11.5); LYMPHOCYTES % (AUTO) 9.6 % (20.5-51.1); MEAN CORPUSCULAR HEMOGLOBIN 31 pg (27-31); MEAN CORPUSCULAR HGB CONC 32 g/dL (33-37); MEAN CORPUSCULAR VOLUME 95.4 fL (80-94); MONOCYTES # (AUTO) 0.4 K/uL (0.8-1.0); MONOCYTES % (AUTO) 4.8 % (1.7-9.3); NEUTROPHILS # (AUTO) 7.2 K/uL (1.8-7.7); NEUTROPHILS % (AUTO) 84.5 % (42.2-75.2); PLATELET COUNT (AUTO) 248 K/uL (140-450); RED BLOOD CELL COUNT(AUTO) 4.77 MIL/uL (4.20-6.10); RED CELL DISTRIBUTION WIDTH 16.3 % (11.6-13.7); WHITE BLOOD COUNT (AUTO) 8.6 K/uL (4.8-10.8)
[2019-08-17 13:58] VITALS: BP 133/69
[2019-08-17 14:12] LABS: PROTHROMBIN TIME 13.4 secs (10.8-13.4)
[2019-08-17 14:14] LABS: ALBUMIN 3.2 g/dL (3.4-5.0); ANION GAP 15.3 (8-16); CARBON DIOXIDE 24.2 mmol/L (21-32); CREATININE 1.6 mg/dL (0.6-1.3); POTASSIUM 5.5 mmol/L (3.5-5.1); TOTAL BILIRUBIN 2.6 mg/dL (0.0-1.0)
[2019-08-17] MEDS ORDERED: VANCOMYCIN 1,000 MG in DEXTROSE 5% 250 ML IV ONE (14:30)
[2019-08-17] MEDS ORDERED: LEVOFLOXACIN 750 MG/D5W PREMIX 150 ML IV ONE (14:30)
[2019-08-17] MEDS ORDERED: VANCOMYCIN 1,000 MG VIAL ONE (14:49)
[2019-08-17] MEDS ORDERED: ACETAMINOPHEN 325 MG TAB PO PRN (15:20)
[2019-08-17] MEDS ORDERED: DOCUSATE SODIUM 100 MG GELCAP PO PRN (15:20)
[2019-08-17] MEDS ORDERED: methylPREDNISolone SS 125 MG in WATER STERILE 2 ML IV ONE (15:20)
[2019-08-17] MEDS ORDERED: ONDANSETRON 4 MG/2 ML VIAL IM/IVP PRN (15:20)
[2019-08-17] MEDS ORDERED: MAG SULF 2000 MG/WATER PREMIX 50 ML IV ONE (15:20)
[2019-08-17 15:22] LABS: APPEARANCE,URINE CLEAR (CLEAR); BILIRUBIN,URINE 1+ (NEGATIVE); BLOOD, URINE NEGATIVE (NEGATIVE); COLOR,URINE AMBER (YELLOW); LEUKOCYTE ESTERASE ,URINE NEGATIVE (NEGATIVE); NITRITE, URINE NEGATIVE (NEGATIVE); UGLUCOSE NEGATIVE (NEGATIVE)
[2019-08-17] MEDS ORDERED: WATER STERILE 10 ML MC ONE (15:30)
[2019-08-17] MEDS ORDERED: methylPREDNISolone SS 125 MG/2 ML VIAL ONE (15:30)
[2019-08-17] MEDS ORDERED: BENZONATATE 100 MG CAPLF PO PRN (15:35)
[2019-08-17] MEDS ORDERED: CALCIUM GLUCONATE 10% 1000 MG/10 ML VIAL IVP ONE (15:45)
[2019-08-17 16:03] LABS: BARBITURATE, URINE NEGATIVE ng/ml (NEG <=200); BENZODIAZEPINE, URINE NEGATIVE ng/mL (NEG <=200); CANNABINOID, URINE NEGATIVE ng/mL (NEG <=50); COCAINE, URINE NEGATIVE ng/mL (NEG <=300); OPIATE, URINE NEGATIVE ng/mL (NEG <=2000); PHENCYCLIDINE SCREEN,URINE NEGATIVE ng/mL (NEG <=25)
[2019-08-17] MEDS ORDERED: FUROSEMIDE 40 MG/4 ML VIAL IVP SCH (16:05)
[2019-08-17 16:07] LABS: FREE T4 (FREE THYROXINE) 1.45 ng/dL (0.76-1.46); MAGNESIUM 2.2 mg/dL (1.8-2.4); PHOSPHORUS 4.7 mg/dL (2.5-4.9)
[2019-08-17] MEDS ORDERED: ALBUTEROL SULFATE/IPRATROPIU 3 ML SOL IH PRN (17:15)
[2019-08-17] MEDS ORDERED: INSULIN REGULAR, HUMAN 100 UNIT/ML VIAL IVP SCH (17:30)
[2019-08-17] MEDS ORDERED: CALCIUM GLUCONATE 10% 1,000 MG in NACL 0.9% 50 ML IV SCH (17:30)
[2019-08-17] MEDS ORDERED: DEXTROSE 50% 50 ML SYR IVP SCH (17:35)
[2019-08-17 20:00] VITALS: BP 112/70
[2019-08-17 20:01] LABS: ANION GAP 19.4 (8-16); CARBON DIOXIDE 19.9 mmol/L (21-32); CREATININE 1.5 mg/dL (0.6-1.3); POTASSIUM 5.3 mmol/L (3.5-5.1)
[2019-08-17] MEDS ORDERED: SODIUM POLYSTYRENE 15 GM/60 ML UDBTL PO SCH (20:40)
[2019-08-17] MEDS ORDERED: NACL 0.9% 1,000 ML IV SCH (20:45)
[2019-08-17] MEDS: CARVEDILOL 3.125 MG TAB PO SCH (21:16)
[2019-08-18] VITALS: BP 110/60
[2019-08-18 04:00] VITALS: BP 122/60
[2019-08-18] MEDS: methylPREDNISolone SS 40 MG/ML VIAL IVP SCH ×3 (04:57→20:39)
[2019-08-18 07:39] LABS: BASOPHILS % (AUTO) 0.4 % (0.0-2.0); HEMATOCRIT 42.6 % (36-52); HEMOGLOBIN 13.8 g/dL (12.0-18.0); LYMPHOCYTES # (AUTO) 0.5 K/uL (2.0-11.5); MEAN CORPUSCULAR HEMOGLOBIN 31 pg (27-31); MEAN CORPUSCULAR HGB CONC 33 g/dL (33-37); MEAN CORPUSCULAR VOLUME 95.7 fL (80-94); MONOCYTES # (AUTO) 0.1 K/uL (0.8-1.0); MONOCYTES % (AUTO) 1.5 % (1.7-9.3); NEUTROPHILS # (AUTO) 6.4 K/uL (1.8-7.7); NEUTROPHILS % (AUTO) 91.1 % (42.2-75.2); PLATELET COUNT (AUTO) 244 K/uL (140-450); RED BLOOD CELL COUNT(AUTO) 4.45 MIL/uL (4.20-6.10); RED CELL DISTRIBUTION WIDTH 16.7 % (11.6-13.7)
[2019-08-18 08:00] VITALS: BP 111/85
[2019-08-18 08:54] LABS: CREATININE 1.6 mg/dL (0.6-1.3)
[2019-08-18] MEDS: ASPIRIN 81 MG TAB.CHEW PO SCH (08:55)
[2019-08-18] MEDS: FUROSEMIDE 40 MG/4 ML VIAL IVP SCH (08:56)
[2019-08-18] MEDS ORDERED: POTASSIUM CHLORIDE 10 MEQ TABER PO SCH (09:00)
[2019-08-18] MEDS ORDERED: LOSARTAN 25 MG TAB PO SCH (09:00)
[2019-08-18] MEDS: CARVEDILOL 3.125 MG TAB PO SCH ×2 (09:05→20:36)
[2019-08-18 10:06] LABS: CHOL/HDL RATIO 3.8 (1-4.5)
[2019-08-18 12:00] VITALS: BP 107/68
[2019-08-18 16:00] VITALS: BP 108/73
[2019-08-18] MEDS: LEVOFLOXACIN 750 MG/D5W PREMIX 150 ML IV SCH (17:25)
[2019-08-18 19:43] VITALS: BP 103/64
[2019-08-19] VITALS: BP 118/82
[2019-08-19 04:15] VITALS: BP 110/72
[2019-08-19] MEDS: methylPREDNISolone SS 40 MG/ML VIAL IVP SCH ×3 (05:11→20:31)
[2019-08-19 07:22] LABS: BASOPHILS % (AUTO) 0.4 % (0.0-2.0); HEMATOCRIT 41.3 % (36-52); HEMOGLOBIN 13.4 g/dL (12.0-18.0); LYMPHOCYTES # (AUTO) 0.5 K/uL (2.0-11.5); LYMPHOCYTES % (AUTO) 3.9 % (20.5-51.1); MEAN CORPUSCULAR HEMOGLOBIN 31 pg (27-31); MEAN CORPUSCULAR HGB CONC 32 g/dL (33-37); MEAN CORPUSCULAR VOLUME 94.6 fL (80-94); MONOCYTES # (AUTO) 0.5 K/uL (0.8-1.0); MONOCYTES % (AUTO) 3.6 % (1.7-9.3); NEUTROPHILS # (AUTO) 11.6 K/uL (1.8-7.7); NEUTROPHILS % (AUTO) 92.1 % (42.2-75.2); PLATELET COUNT (AUTO) 245 K/uL (140-450); RED BLOOD CELL COUNT(AUTO) 4.36 MIL/uL (4.20-6.10); RED CELL DISTRIBUTION WIDTH 16.2 % (11.6-13.7); WHITE BLOOD COUNT (AUTO) 12.6 K/uL (4.8-10.8)
[2019-08-19 07:39] LABS: PHOSPHORUS 4.3 mg/dL (2.5-4.9)
[2019-08-19 07:40] LABS: ANION GAP 12.6 (8-16); CARBON DIOXIDE 27.6 mmol/L (21-32); CREATININE 1.4 mg/dL (0.6-1.3); POTASSIUM 4.2 mmol/L (3.5-5.1)
[2019-08-19 08:00] VITALS: BP 116/77
[2019-08-19] MEDS: ASPIRIN 81 MG TAB.CHEW PO SCH (08:52)
[2019-08-19] MEDS: FUROSEMIDE 40 MG/4 ML VIAL IVP SCH (08:52)
[2019-08-19] MEDS: CARVEDILOL 3.125 MG TAB PO SCH ×2 (08:53→20:31)
[2019-08-19 12:00] VITALS: BP 116/72
[2019-08-19 16:00] VITALS: BP 108/66
[2019-08-19] MEDS: LEVOFLOXACIN 750 MG/D5W PREMIX 150 ML IV SCH (18:12)
[2019-08-19 20:00] VITALS: BP 122/86
[2019-08-19] MEDS ORDERED: ATORVASTATIN 20 MG TAB PO SCH (21:00)
[2019-08-20] VITALS: BP 119/86
[2019-08-20 04:00] VITALS: BP 99/72
[2019-08-20] MEDS: methylPREDNISolone SS 40 MG/ML VIAL IVP SCH (04:13)
[2019-08-20] MEDS ORDERED: ATOR40TA PO (06:41)
[2019-08-20 06:46] LABS: CARBON DIOXIDE 29.6 mmol/L (21-32); CREATININE 1.4 mg/dL (0.6-1.3); POTASSIUM 4.6 mmol/L (3.5-5.1)
[2019-08-20 06:51] LABS: MAGNESIUM 2.3 mg/dL (1.8-2.4); PHOSPHORUS 4.2 mg/dL (2.5-4.9)
[2019-08-20 06:54] LABS: HEMOGLOBIN 13.1 g/dL (12.0-18.0); LYMPHOCYTES # (AUTO) 0.4 K/uL (2.0-11.5); LYMPHOCYTES % (AUTO) 2.9 % (20.5-51.1); MEAN CORPUSCULAR HEMOGLOBIN 31 pg (27-31); MEAN CORPUSCULAR HGB CONC 32 g/dL (33-37); MEAN CORPUSCULAR VOLUME 95.1 fL (80-94); MONOCYTES # (AUTO) 0.7 K/uL (0.8-1.0); MONOCYTES % (AUTO) 5.4 % (1.7-9.3); NEUTROPHILS # (AUTO) 11.3 K/uL (1.8-7.7); NEUTROPHILS % (AUTO) 91.7 % (42.2-75.2); PLATELET COUNT (AUTO) 229 K/uL (140-450); RED BLOOD CELL COUNT(AUTO) 4.31 MIL/uL (4.20-6.10); RED CELL DISTRIBUTION WIDTH 16.1 % (11.6-13.7); WHITE BLOOD COUNT (AUTO) 12.3 K/uL (4.8-10.8)
[2019-08-20] MEDS ORDERED: PNEUMOCOCCAL VACCINE 23 MCG/0.5 ML VIAL IMVAC SCH (09:15)
[2019-08-20] MEDS: ASPIRIN 81 MG TAB.CHEW PO SCH (09:46)
[2019-08-20] MEDS: CARVEDILOL 3.125 MG TAB PO SCH (09:46)
[2019-08-20] MEDS: FUROSEMIDE 40 MG/4 ML VIAL IVP SCH (09:46)
[2019-08-20] MEDS ORDERED: PRED20TA5 PO ×2 (10:58→11:14)
[2019-08-21] MEDS ORDERED: LOSA25TA32 PO (08:41)
[2019-08-21] MEDS ORDERED: CARV3.12 PO (08:41)
[2019-08-21] MEDS ORDERED: FURO-570 PO (08:41)
[2019-08-21] MEDS ORDERED: PRED20TA5 PO (08:41)
[2019-08-21] MEDS ORDERED: ASPI81CT95 PO (08:41)
[2019-08-21] MEDS ORDERED: ATOR40TA PO (08:41)
== END 2019-08-20 11:30 | disposition home or self-care (01) | DRG 291 ==
LOC: MED 13:13 → EEVIPCON 15:51 → MTU 15:51
PROVIDERS: ADMIT General Practice; ATTEND General Practice
PROC: 3E0234Z Introduction of Serum, Toxoid and Vaccine into Muscle, Percutaneous Approach (ICD-10-PCS; principal; 2019-08-20)
DX: I13.0 Hypertensive heart and chronic kidney disease with heart failure and stage 1 through stage 4 chronic kidney disease, or unspecified chronic kidney disease (principal); I50.43 Acute on chronic combined systolic (congestive) and diastolic (congestive) heart failure; N17.0 Acute kidney failure with tubular necrosis; J44.1 Chronic obstructive pulmonary disease with (acute) exacerbation; E87.1 Hypo-osmolality and hyponatremia; E87.2 Acidosis; E44.1 Mild protein-calorie malnutrition; I42.7 Cardiomyopathy due to drug and external agent; Z23 Encounter for immunization; Z90.81 Acquired absence of spleen; Z96.642 Presence of left artificial hip joint; Z96.659 Presence of unspecified artificial knee joint; Z87.891 Personal history of nicotine dependence; E87.5 Hyperkalemia; R74.0 Nonspecific elevation of levels of transaminase and lactic acid dehydrogenase [LDH]; E80.6 Other disorders of bilirubin metabolism; E66.9 Obesity, unspecified; Z71.3 Dietary counseling and surveillance; Z68.34 Body mass index [BMI] 34.0-34.9, adult; T38.0X5A Adverse effect of glucocorticoids and synthetic analogues, initial encounter; Y92.89 Other specified places as the place of occurrence of the external cause; D72.829 Elevated white blood cell count, unspecified; N18.3 Chronic kidney disease, stage 3 (moderate)
CPT/HCPCS: 36415; 36600; 71045; 71275; 76604; 80048; 80053; 80305; 81003; 82150; 82803; 82948; 83605; 83690; 83735; 83880; 84100; 84134; 84439; 84443; 84484; 85025; 85379; 85610; 85730; 87040; 87081; 87086; 90732; 93005; 93970; 94640; 96365; 96368; 96375; 97116; 97161-GP; 99291; J0610; J1644; J1815; J1940; J1956; J2920; J2930; J3370; J3475; J7030; Q0092; Q9967

== ENCOUNTER 2019-08-26 14:33 | Inpatient (IN) | payer MEDICAID, SELFPAY ==
[~2019-08-26] VITALS: Ht 177.8 cm; Wt 122.5 kg
[2019-08-26] VITALS (10 sets, daily range): BP systolic 69–118; BP diastolic 49–79
[~2019-08-26 14:33] MED LIST changes: +ATOR40TA PO; -AZIT250T3 PO; -BENZ-196 PO; -LACT-81 PO; -POTA10TE30 PO; +PRED20TA5 PO
--- NOTE | 2019-08-26 14:50 | NUR ---
49 y/o male c/o sob since last night. pt states worse when laying down. denies pain. states he was disc[facility]arged from [facility]a few days ago for pneumonia. rr even and unlabored. denies cough. afebrile upon arrival. pt placed on monitor
[2019-08-26] MEDS ORDERED: DILTIAZEM 25 MG/5 ML VIAL IVP ONE (14:55)
--- NOTE | 2019-08-26 15:02 | NUR ---
labs and blood cultures taken from iv. influenza swab collected at this time. pt tolerated well
--- NOTE | 2019-08-26 15:05 | NUR ---
urine collected from pt via urinal.
--- NOTE | 2019-08-26 15:06 | NUR ---
xray at bedside
[2019-08-26 15:41] LABS: BILIRUBIN,URINE NEGATIVE (NEGATIVE); BLOOD, URINE NEGATIVE (NEGATIVE); COLOR,URINE YELLOW (YELLOW); LEUKOCYTE ESTERASE ,URINE TRACE (NEGATIVE); NITRITE, URINE NEGATIVE (NEGATIVE); UGLUCOSE NEGATIVE (NEGATIVE)
[2019-08-26 15:55] LABS: APPEARANCE,URINE HAZY (CLEAR)
[2019-08-26 15:59] LABS: ANION GAP 11.6 (8-16); CARBON DIOXIDE 27.1 mmol/L (21-32); CREATININE 1.1 mg/dL (0.6-1.3); POTASSIUM 3.7 mmol/L (3.5-5.1); TOTAL BILIRUBIN 1.2 mg/dL (0.0-1.0)
[2019-08-26 16:02] LABS: RBC,URINE 0-5 /HPF (0-5); WBC,URINE 0-5 /HPF (0-5)
[2019-08-26 16:14] LABS: BASOPHILS # (AUTO) 0.1 K/uL (0.00-0.22); BASOPHILS % (AUTO) 0.4 % (0.0-2.0); EOSINOPHILS # (AUTO) 0.1 K/uL (0-0.4); HEMATOCRIT 45.2 % (36-52); HEMOGLOBIN 14.8 g/dL (12.0-18.0); LYMPHOCYTES # (AUTO) 1.7 K/uL (2.0-11.5); LYMPHOCYTES % (AUTO) 13.1 % (20.5-51.1); MEAN CORPUSCULAR HEMOGLOBIN 31 pg (27-31); MEAN CORPUSCULAR HGB CONC 33 g/dL (33-37); MEAN CORPUSCULAR VOLUME 94.9 fL (80-94); MONOCYTES # (AUTO) 2.2 K/uL (0.8-1.0); MONOCYTES % (AUTO) 16.4 % (1.7-9.3); NEUTROPHILS # (AUTO) 9.1 K/uL (1.8-7.7); NEUTROPHILS % (AUTO) 69.1 % (42.2-75.2); PLATELET COUNT (AUTO) 311 K/uL (140-450); RED BLOOD CELL COUNT(AUTO) 4.76 MIL/uL (4.20-6.10); RED CELL DISTRIBUTION WIDTH 17.7 % (11.6-13.7); WHITE BLOOD COUNT (AUTO) 13.3 K/uL (4.8-10.8)
[2019-08-26] MEDS ORDERED: ACETAMINOPHEN 325 MG TAB PO PRN (16:35)
[2019-08-26] MEDS ORDERED: ONDANSETRON 4 MG/2 ML VIAL IM/IVP PRN (16:35)
[2019-08-26] MEDS ORDERED: HYDROcodone/APAP 7.5/325 MG 1 TAB PO PRN (16:35)
[2019-08-26] MEDS ORDERED: LORazepam 2 MG/ML VIAL IM/IVP PRN (16:35)
[2019-08-26] MEDS ORDERED: DOCUSATE SODIUM 100 MG GELCAP PO PRN (16:35)
[2019-08-26] MEDS ORDERED: hePARIN / DEXT 5% PREMIX 250 ML IV SCH (16:40)
[2019-08-26] MEDS ORDERED: HEPARIN PER PHARMACY MC PRN (16:40)
[2019-08-26] MEDS ORDERED: AZITHROMYCIN 500 MG in DEXTROSE 5% 250 ML IV ONE ×2 (16:40→17:20)
[2019-08-26] MEDS ORDERED: FUROSEMIDE 40 MG/4 ML VIAL IVP ONE (16:40)
[2019-08-26] MEDS ORDERED: AZITHROMYCIN 500 MG INJ VIAL IV ONE (16:58)
[2019-08-26 17:04] LABS: AMYLASE 82 U/L (25-115); CHOL/HDL RATIO 2.9 (1-4.5); FREE T4 (FREE THYROXINE) 1.19 ng/dL (0.76-1.46); HDL CHOLESTEROL 56 mg/dL (40-60); LACTATE DEHYDROGENASE 278 U/L (85-227); LDL (CALC) 77 mg/dL (60-100); LIPASE 300 U/L (73-393); MAGNESIUM 2.1 mg/dL (1.8-2.4); PHOSPHORUS 4.1 mg/dL (2.5-4.9); THYROID STIMULATING HORMONE 3.92 uIU/mL (0.34-3.74); TRIGLYCERIDES 149 mg/dL (30-150)
[2019-08-26 17:06] LABS: BARBITURATE, URINE NEGATIVE ng/ml (NEG <=200); BENZODIAZEPINE, URINE NEGATIVE ng/mL (NEG <=200); CANNABINOID, URINE NEGATIVE ng/mL (NEG <=50); COCAINE, URINE NEGATIVE ng/mL (NEG <=300); OPIATE, URINE NEGATIVE ng/mL (NEG <=2000); PHENCYCLIDINE SCREEN,URINE NEGATIVE ng/mL (NEG <=25); PROTHROMBIN TIME 10.4 secs (10.8-13.4)
[2019-08-26] MEDS ORDERED: NACL 0.9% 250 ML IV ONE (17:20)
--- NOTE | 2019-08-26 17:42 | NUR ---
PT STATES HE FEELS LIKE HE IS DROWNING WHEN HE LAYS DOWN, DR FUENTES MADE AWARE
--- NOTE | 2019-08-26 17:53 | NUR ---
DR FUENTES AT BEDSIDE RE-EVALUATING PT AT THIS TIME.
[2019-08-26] MEDS ORDERED: ETOMIDATE 20 MG/10 ML VIAL IVP ONE ×3 (18:12→18:40)
[2019-08-26] MEDS ORDERED: SUCCINYLCHOLINE CHLORIDE 200 MG/10 ML VIAL IVP ONE ×2 (18:13→18:40)
--- NOTE | 2019-08-26 18:18 | NUR ---
Dr. Calzada, RT and RN at bedside for ETT insertion.
--- NOTE | 2019-08-26 18:25 | NUR ---
KETAMINE GIVEN PER DR FUENTES ORDER FOR SEDATION OF PT. PT FIGHTING ETT AT THIS TIME.
--- NOTE | 2019-08-26 18:27 | NUR ---
PT INTUBATED BY DR FUENTES, SUCCESSFUL INTUBATION, PT TOLERATED WELL. XRAY CALLED FOR PLACEMENT OF ETT TUBE.
[2019-08-26] MEDS ORDERED: NOREPINEPHRINE 8 MG in DEXTROSE 5% 250 ML IV PRN (18:30)
--- NOTE | 2019-08-26 18:30 | NUR ---
RT AT BEDSIDE, PT TRANSFERED TO VENTILATOR. RR EVEN, PT TACHYPNIC. WILL CONTINUE TO MONITOR
--- NOTE | 2019-08-26 18:35 | NUR ---
lead quality control technician at bedside for post-endotracheal intubation CXR.
[2019-08-26] MEDS ORDERED: KETAMINE 10 MG/ML UD SYR **ER IVP ONE ×2 (18:40→18:41)
[2019-08-26] MEDS ORDERED: PROPOFOL 1000 MG/100 ML PREMIX 100 ML IV PRN (18:40)
[2019-08-26] MEDS ORDERED: NOREPINEPHRINE 4 MG in DEXTROSE 5% 250 ML IV PRN (19:00)
--- NOTE | 2019-08-26 19:00 | NUR ---
PT CONTINUES TO FIGHT ETT, DR FUENTES MADE AWARE, NO ORDERS AT THIS TIME FOR PT.
[2019-08-26] MEDS ORDERED: MIDAZOLAM 2 MG/2 ML VIAL ONE (19:04)
[2019-08-26] MEDS ORDERED: MIDAZOLAM 2 MG/2 ML VIAL IV ONE (19:05)
--- NOTE | 2019-08-26 19:05 | NUR ---
VERSED GIVEN TO PT FOR SEDATION
--- NOTE | 2019-08-26 19:10 | NUR ---
CALLED TO ED AT 17:05 FOR INCREASED WOB. PATIENT WAS SUCCESSFULLY INTUBATED BY DR FUENTES IN ED. PATIENT WAS INTUBATED WITH EET SIZE 7.5 AND SECURED WITH ANCHOR-FAST AT 26CM. PATIENT WAS PLACED ON VENT SETTINGS: AC/VC 18, 500, +6, 100%. VENT PLUGGED IN RED OUTLET, ALARMS SET AND AUDIBLE, HOB > 30 DEGREES, AND BVM AT BEDSIDE. PATIENT IN NO APPARENT RESPIRATORY DISTRESS AT THIS TIME. AUSCULTATION REVEALS BILATERAL COARSE BREATH SOUNDS. WILL CONTINUE TO MONITOR PATIENT.
[2019-08-26] MEDS ORDERED: MIDAZOLAM MDV 50 MG/10 ML VIAL IV ONE (19:11)
--- NOTE | 2019-08-26 19:19 | NUR ---
REPORT GIVEN TO CARI MÁRQUEZ. TRANSFER OF CARE AT THIS TIME
--- NOTE | 2019-08-26 19:30 | NUR ---
Assumed care of pt at this time. Pt currently biting ET tube modify ramsy score of +3. Pt given versed 5 mg by CARI fleming. Pt appears to be more sedated after mediciation. Pt seen at [facility] x 2 times over last week. Pt DC home and back to ED for SOB. Pt tested twice for COVID-19. Both test Negative. Pt blood pressure in 90s. Unable to give propofol. Waiting for versed to be mixed to give iv titration.
--- NOTE | 2019-08-26 19:41 | NUR ---
Versed drip titrated to 2mg/hr. CARI PACHECO verified.
[2019-08-26] MEDS ORDERED: fentaNYL 0.05 MG/ML VIAL ONE (19:55)
--- NOTE | 2019-08-26 20:11 | NUR ---
Versed drip increased to 3mg/hr. RN TARA mago.
[2019-08-26] MEDS: MIDAZOLAM MDV 50 MG in NACL 0.9% 40 ML IV PRN (20:22)
[2019-08-26] MEDS: fentaNYL 1 MG in NACL 0.9% 80 ML IV PRN (20:25)
--- NOTE | 2019-08-26 20:30 | NUR ---
Pt appears to be in distress. pt still fighting ET tube. Pt currently receiving versed and fentanyl drip. titrating to affect.
--- NOTE | 2019-08-26 20:37 | NUR ---
Admiting Dr. goodrich and Dr. Quintana at bedside performing central line.
--- NOTE | 2019-08-26 20:39 | NUR ---
Fentanyl Drip increased to 100mcg/hr. RN TARA verified. Pt still biting tube, appears to not have enough sedation.
--- NOTE | 2019-08-26 20:45 | NUR ---
VERSED DRIP INCREASED TO 4MG/HR. VERIFIED BY RN TARA.
[2019-08-26] MEDS ORDERED: NOREPINEPHRINE 4 MG/4 ML VIAL IV ONE (20:48)
[2019-08-26] MEDS ORDERED: CARVEDILOL 3.125 MG TAB PO SCH (21:00)
[2019-08-26] MEDS ORDERED: VANCOMYCIN PER PHARMACY MC PRN (21:15)
[2019-08-26] MEDS ORDERED: NOREPINEPHRINE 16 MG in DEXTROSE 5% 250 ML IV PRN (21:15)
--- NOTE | 2019-08-26 21:15 | NUR ---
LEVOPHED STARTED PT B/P DR. WILLINGHAM AND DR. RICHARDS STILL AT BEDSIDE INSERTING CENTRAL LINE. LEVOPHED VERIFIED BY RN TARA.
--- NOTE | 2019-08-26 21:30 | NUR ---
PT APPEARS TO BE COMFORTABLE AT THIS TIME. PT FENTANYL AND VERSED TITRATED TO APPROPRIATE DOSE.
--- NOTE | 2019-08-26 21:45 | NUR ---
RECEIVED PT FROM ER, TRANSFERRED VIA GURNEY TO ICU 8. PT ETT TO VENT. SEDATED, RASS -3 ON AC VC MODE. FIO2 60%, TV 500, RATE 18, PEEP 6. LEFT FOREARM, 18 GAUGE, AND R FORAERM 18 GAUGE INFUSING VERSED 2MG/HR FENTANYL 1MCG/KG/MIN AND LEVOPHED. SINUS TACHYCARDIA ON MONITOR. SKIN INTACT. DRY WEIGHT 97.5 KG. HOB 30 DEGREES. BED LOCKED IN LOWEST POSITION. WILL CONTINUE MONITOR. Addendum: 08/27/19 at 0446 by Delio Kulkarni RN VERSED 4 MG/HR, FENTANYL 1MCG/KG/HR, LEVOPHED 0.5 MCG/MIN. CENTRAL RIJ IN PLACE, SALINE LOCKED. OGT IN PLACE, CLAMPED.
[2019-08-26] MEDS ORDERED: VANCOMYCIN 2,000 MG in DEXTROSE 5% 500 ML IV ONE (22:05)
[2019-08-26] MEDS ORDERED: NACL 0.9% 1,000 ML IV ONE ×2 (22:10→22:20)
--- NOTE | 2019-08-26 22:16 | NUR ---
Pt report given to []. Transfer of care at this time.Patient will be admitted to care of DR. FAGAN. Admited to ICU. Will go to room 8. Belongings list completed. Report to BRANDT ALCALA.
[2019-08-26] MEDS ORDERED: AMIODARONE 150 MG/3 ML VIAL IV ONE (22:41)
[2019-08-26] MEDS ORDERED: AMIODARONE 450 MG/9 ML VIAL IV ONE (22:42)
[2019-08-26] MEDS ORDERED: VANCOMYCIN 1,000 MG VIAL ONE (22:57)
[2019-08-26] MEDS ORDERED: HYDROCORTISONE NA SUCC 100 MG/2 ML VIAL IV ONE (23:05)
[2019-08-26] MEDS: ATORVASTATIN 20 MG TAB PO SCH (23:28)
--- NOTE | 2019-08-26 23:30 | NUR ---
DR LEAHY IN TO ASSESS PT.
[2019-08-26] MEDS: NACL 0.9% 1,000 ML IV SCH (23:36)
[2019-08-26] MEDS: AMIODARONE 450 MG in DEXTROSE 5% 250 ML IV SCH (23:45)
--- NOTE | 2019-08-26 23:45 | NUR ---
AMIODARONE DRIP STARTED AT 33ML/HR.
[2019-08-27] VITALS (102 sets, daily range): BP systolic 64–126; BP diastolic 41–87
[2019-08-27] MEDS ORDERED: PHENYLEPHRINE 10 MG/ML VIAL ONE ×6 (00:17→05:24)
[2019-08-27] MEDS: PHENYLEPHRINE 10 MG in NACL 0.9% 250 ML IV PRN ×3 (00:30→04:54)
[2019-08-27] MEDS ORDERED: PIPERACILLIN/TAZOBACTAM 3.375 GM VIAL IV ONE (01:20)
[2019-08-27] MEDS: PIPERACILLIN/TAZOBACTAM 3.375 GM in DEXTROSE 5% 50 ML IV SCH ×5 (01:30→23:36)
--- NOTE | 2019-08-27 01:50 | NUR ---
BP STILL LOW AROUND 56-65 SYSTOLIC, HOLD AMIODARONE DRIP FOR AWHILE,DR. LEAHY INFORMED AND AWARE.
--- NOTE | 2019-08-27 01:55 | NUR ---
LEVOPHED ORDER READS TO KEEP MEDICATION AT 8MCG. BP STILL LOW. DR LEAHY MADE AWARE, AND STATED OKAY TO TITRATE THE LEVOPHED.
--- NOTE | 2019-08-27 02:00 | NUR ---
HUNG NEW BAG OF VERSED STARTED AT 2 MG/HR AND CONTINUED FENTANYL AT 1 MCG/KG/MIN, 9.75 ML/HR. ALSO HUNG NEW BAG OF NEOSYNEPRHINE AT 150 MCG, 56.25 ML/HR.
[2019-08-27] MEDS ORDERED: NOREPINEPHRINE 4 MG/4 ML VIAL IV ONE (02:10)
[2019-08-27] MEDS ORDERED: MIDAZOLAM MDV 50 MG/10 ML VIAL IV ONE (02:12)
[2019-08-27] MEDS ORDERED: fentaNYL 0.05 MG/ML VIAL ONE ×3 (02:20→02:26)
[2019-08-27] MEDS ORDERED: PHENYLEPHRINE 40 MG in NACL 0.9% 250 ML IV PRN (05:15)
--- NOTE | 2019-08-27 05:55 | NUR ---
PATIENT IS RESTING IN BED WITH NO APPARENT RESPIRATORY DISTRESS AT THIS MOMENT. AIRWAY IS PATENT AND EET IS SECURED. CURRENT FiO2 ON THE VENT IS 40% WITH SPO2 OF 95-98%%. WILL CONTINUE TO MONITOR PATIENT.
--- NOTE | 2019-08-27 06:00 | NUR ---
DR WHEATLEY IN TO ASSESS PT. MADE AWARE OF LOW URINE OUTPUT.
--- NOTE | 2019-08-27 06:00 | NUR ---
AMIODARONE DRIP DECREASED TO 16.66 ML/HR
--- NOTE | 2019-08-27 06:50 | NUR ---
REC'D PT ON [place]ES[place]E VENT SETTINGS AC 18 VT 500 PEEP 6 FIO2 40% ALARMS ON AND AUDIBLE AND AMBU BAG AT HOB VENT IS PLUGGED INTO RED OUTLET, SXN PT SMALL AMT OF CLEAR SECRETIONS, PT IS ORALLY INTUBATED WITH 7.5 ETT SECURED WITH ANCHOR FAST AT 26 CM PT RESTING
--- NOTE | 2019-08-27 07:25 | NUR ---
BEDSIDE REPORT RECEIVED FROM LINE CAMERA OPERATOR NURSE, PT SEDATED WITH FENTANYL AND VERSED TO RASS -3, SKIN WARM DRY COLOR WNL, PT ON CARDIOPULM MONITOR CONTINUOUSLY HR 143 ST, RR 21, BP 114/74, O2SAT 100%, ETT TO VENT 7.5FR, 26CM AT TEETH, ACVC MODE, FIO2 40%, VT 500, RR 18, PEEP 6, EQUAL CHEST RISE AND FALL NOTED, OGT IN PLACE, PIV TO BILAT AV 18Gs, CENTRAL LINE TO RIJ, SITES WNL, ABD SOFT NON DISTENDED, SKIN INTACT, BILAT LE EDEMA NOTED, MILLER IN PLACE, DRAINING SMALL AMT TO GRAVITY, ALL SAFETY MEASURES IN PLACE, POC REVIEWED, WILL CONTINUE TO MONITOR Addendum: 08/27/19 at 0808 by Elma Ray RN CURRENT DRIPS: DRY WT 97.5KG NEOSYNEPHRINE 150 MCG/MIN (56.25ML/HR), LEVOPHED 22MCG/MIN (41.25ML/HR), AMIODARONE 0.5MG/HR (16.66ML/HR), VERSED 2MCG/HR (2ML/HR), FENTANYL 1MCG/KG/HR (9.75ML/HR), IVF NS AT 10ML/HR.
--- NOTE | 2019-08-27 07:45 | NUR ---
DR OBREGON AND MEDICAL TEAM AT BEDSIDE FOR EVAL, AWARE OF INCREASED HR 140'S.
--- NOTE | 2019-08-27 08:53 | NUR ---
PATIENT HAS BEEN SCREENED AND CATEGORIZED HIGH NUTRITION RISK. PATIENT WILL BE SEEN WITHIN 1-2 DAYS OF ADMISSION. 08/27/19-08/28/[address]
[2019-08-27] MEDS ORDERED: FUROSEMIDE 40 MG TAB PO SCH (09:00)
[2019-08-27] MEDS ORDERED: FUROSEMIDE 40 MG/4 ML VIAL IVP SCH ×2 (09:00)
[2019-08-27] MEDS ORDERED: AZITHROMYCIN 250 MG in DEXTROSE 5% 250 ML IV SCH (09:00)
[2019-08-27] MEDS ORDERED: LOSARTAN 25 MG TAB PO SCH (09:00)
[2019-08-27] MEDS: PANTOPRAZOLE 40 MG INJ VIAL IVP SCH (09:06)
[2019-08-27] MEDS: ASPIRIN 81 MG TAB.CHEW PO SCH (09:07)
[2019-08-27] MEDS: HYDROCORTISONE NA SUCC 100 MG/2 ML VIAL IV SCH ×2 (09:07→21:52)
--- NOTE | 2019-08-27 09:30 | NUR ---
PT'S SISTER ASYA CALLED FOR UPDATE, SHE WAS NOT AWARE THAT PT WAS IN ICU, OFFERED TO HAVE DOCTOR CALL HER WITH MEDICAL UPDATE, DR URIOSTEGUI MADE AWARE.
--- NOTE | 2019-08-27 09:40 | NUR ---
DR WHEATLEY MADE AWARE THAT PT IS MAX'D ON YONG DRIP AND 26MCG/MIN ON LEVO, ALSO NOTIFIED THAT DR LEVIN RECOMMENDS SWITCHING TO DOBUTAMINE.
[2019-08-27 10:12] LABS: HEMATOCRIT 49.2 % (36-52); HEMOGLOBIN 15.6 g/dL (12.0-18.0); MEAN CORPUSCULAR HEMOGLOBIN 31 pg (27-31); MEAN CORPUSCULAR HGB CONC 32 g/dL (33-37); MEAN CORPUSCULAR VOLUME 96.4 fL (80-94); PLATELET COUNT (AUTO) 305 K/uL (140-450); RED BLOOD CELL COUNT(AUTO) 5.11 MIL/uL (4.20-6.10); RED CELL DISTRIBUTION WIDTH 17.8 % (11.6-13.7); WHITE BLOOD COUNT (AUTO) 23.4 K/uL (4.8-10.8)
--- NOTE | 2019-08-27 10:19 | NUR ---
DISCHARGE PLANNING: THIS IS A 49 Y/O MALE PATIENT FROM HOME, WHO CAME IN DUE TO SHORTNESS OF BREATH AND SWELLING IN HIS LEGS X2 DAYS. PAST MEDICAL HISTORY INCLUDE COPD, CHF WITH EF OF 15-25%, OBESITY AND METHAMPHETAMINE USE DISORDER. INITIAL DIAGNOSIS OF CHF EXACERBATION, PNA AND ELEVATED TROPONIN. CURRENT LABS INCLUDE WBC 13.3, H/H 14.8/45.2, NA/K 138/3.7, BUN/CREA 24/1.1 AND TROP 0.604-0.880. ON SOLU-CORTEF, ZOSYN, AMIODARONE. ORALLY INTUBATED TO VENT, FIO2 40%, O2 SAT 99%. SEDATED WITH FENTANYL AND VERSED. ON ON PHENYLEPHRINE AND LEVOPHED DRIPS. PULMO AND CARDIO CONSULTS IN PLACE. DC PLAN PENDING ON PATIENT'S RESPONSE TO TREATMENT. Addendum: 08/28/19 at 1124 by Gabrielle Iyer PATIENT IS STILL IN ICU. ORALLY INTUBATED - FIO2 40%, O2 SAT 95%. CURRENT LABS INCLUDE WBC 18.9, H/H 12.9/39.6, NA/K 132/5.1, BUN/CREA 57/3.6 AND TROP 1.908. SEDATED WITH FENTANYL AND VERSED. ON LEVOPHED, PHENYLEPHRINE AND AMIODARONE, FUROSEMIDE DRIP. ON VANCO AND SOLU CORTEF IV. SPUTUM CULTURE STILL PENDING. BLOOD C/S NO GROWTH AFTER 24 HOURS. URINE C/S SHOWED MIXED UROGENITAL RENAY. PULMO, CARDIO AND NEPHRO CONSULTS IN PLACE. DC PLAN PENDING ON PATIENT'S RESPONSE TO TREATMENT. Addendum: 08/29/19 at 1038 by Gabrielle Iyer CM STILL IN ICU. ORALLY INTUBATED TO VENT FIO2 40% - O2 SAT 91%. ON DOBUTAMINE, LEVOPHED, EPINEPHRINE, LASIX AND AMIODARONE DRIPS. SEDATED WITH FENTANYL AND VERSED DRIP. ON ZOSYN, VANCOMYCIN, PROTONIX AND SOLU CORTEF IV. CURRENT LABS INCLUDE WBC 19.1, H/H 12.3/38.6, NA/K 125/5.4, BUN/CREA 72/4.5 AND ALB 2.4. COVID (-). CARDIO, SURGICAL AND PULMO/CRITICAL CONSULTS IN PLACE. DC PLAN PENDING ON PATIENT'S RESPONSE TO TREATMENT. Addendum: 08/30/19 at 1122 by Gabrielle Iyer CM STILL IN ICU. ORALLY INTUBATED TO VENT, FIO2 40%, O2 SAT 93%. SEDATED WITH VERSED AND FENTANYL. ON HEPARIN, AMIODARONE, DOBUTAMINE AND EPINEPHRINE DRIPS. CURRENT LABS INCLUDE WBC 17.3, H/H 12.0/37.9, NA/K 124/4.6, BUN/CREA 82/4.6 AND ALB 2.4. ON VANCOMYCIN, SOLU-CORTEF, PROTONIX AND ZOSYN. CURRENT CXR SHOWED INTERVAL INCREASE IN SMALL RIGHT EFFUSION, MILD BASILAR ATELECTASIS, PERSISTENT SMALL LEFT PLEURAL EFFUSION. CARDIO, PULMO, NEPHRO CONSULTS IN PLACE. DC PLAN PENDING ON PATIENT'S RESPONSE TO TREATMENT. Addendum: 09/01/19 at 1046 by Gabrielle Iyer STILL IN ICU. ORALLY INTUBATED TO VENT, FIO2 40%-O2 SAT 98%. SEDATED WITH VERSED AND FENTANYL. ON AMIODARONE, LEVOPHED, DOBUTAMINE AND HEPARIN DRIPS. ON VANCOMYCIN, ZOSYN, LASIX AND SOLU CORTEF. CURRENT LABS INCLUDE WBC 16.6, H/H 11.6/36, NA/K 130/4.3, BUN/CREA 81/3.8. COVID (-). SPUTUM CS SHOWED GRAM POSITIVE COCCI. BLOOD CS NO GROWTH AFTER 5 DAYS. SEEN BY PULMO, CARDIO, NEPHRO AND ID CONSULTS. DC PLANNING PENDING ON PATIENT'S RESPONSE TO TREATMENT. Addendum: 09/03/19 at 1117 by Gabrielle Iyer CM STILL IN ICU, ORALLY INTUBATED TO VENT, FIO2 30%, O2 SAT 98%. ON FENTANYL AND VERSED DRIPS. NOT ON ANY PRESSORS ANYMORE. CURRENT LABS INCLUDE WBC 16.5, H/H 10.9/33.5, NA/K 134/3.8, BUN/CREA 70/2.6 AND ALB 2.1. CURRENT CXR SHOWED SMALL BILATERAL PLEURAL EFFUSIONS. ON SOLU CORTEF, CEFEPIME, FUROSEMIDE, PROTONIX. ID, PULMO, NEPHRO AND CARDIO CONSULTS IN PLACE. DC PLAN PENDING ON PATIENT'S RESPONSE TO TREATMENT. Addendum: 09/04/19 at 1557 by Gabrielle Iyer CM EXTUBATED AT 1305 AND WAS PLACED ON 2 LPM/NC, O2 SAT 95%. TOLERATING WELL. Addendum: 09/06/19 at 1354 by Slime Castro CM DC PLANNING: ALL THE VP ANALYTICS RECOMMENDED TO CONTINUE WITH THE CURRENT TREATMENT, WEAN DOWN STEROIDS RECOMMENDED HOSPICE /PALLIATIVE CARE. DC PLAN TO GO HOME WHEN STABLE. CM TO FOLLOW
[2019-08-27 10:25] LABS: ALBUMIN 2.9 g/dL (3.4-5.0); ANION GAP 13.4 (8-16); CARBON DIOXIDE 26.9 mmol/L (21-32); CREATININE 2.2 mg/dL (0.6-1.3); MAGNESIUM 2.1 mg/dL (1.8-2.4); PHOSPHORUS 7.9 mg/dL (2.5-4.9); POTASSIUM 5.3 mmol/L (3.5-5.1); TOTAL BILIRUBIN 2.1 mg/dL (0.0-1.0)
--- NOTE | 2019-08-27 10:35 | NUR ---
PT'S SISTER, BROTHERS, SON TOOK TURNS TO SEE PATIENT FROM OUTSIDE OF ROOM.
[2019-08-27 10:55] LABS: BASOPHILS % (MANUAL) 0 % (0-2); EOSINOPHILS % (MANUAL) 0 % (0-4); LYMPHOCYTES % (MANUAL) 9 % (20-46); MONOCYTES % (MANUAL) 10 % (5-12)
[2019-08-27] MEDS: DOBUTamine 500 MG/D5W PREMIX 250 ML IV SCH ×2 (10:59→20:01)
--- NOTE | 2019-08-27 11:49 | NUR ---
DR JAVIER AT BEDSIDE FOR EVAL, WILL CONTINUE TO TITRATE DOBUTAMINE UP AND TITRATE DOWN LEVOPHED PER DR JAVIER, DR JAVIER MADE AWARE OF HR 140'S A-FLUTTER. CONTINUE AMIODARONE DRIP.
[2019-08-27] MEDS: fentaNYL 1 MG in NACL 0.9% 80 ML IV PRN ×2 (14:07→19:55)
--- NOTE | 2019-08-27 14:10 | NUR ---
fentanyl BAG COMPLETED, NO WASTE, NEW BAG STARTED
--- NOTE | 2019-08-27 14:41 | NUR ---
08/27/19 RD INITIAL ASSESSMENT COMPLETED PLEASE REFER TO NUTRITION ASSESSMENT UNDER CARE ACTIVITY FOR ESTIMATED NUTRITIONAL NEEDS. 1. CONTINUE VITAL 1.2 @ 30 ML/HR X 24 HR -THIS WILL PROVIDE 720 ML OF VOLUME, 864 KCAL AND 54 GM OF PROTEIN 2. IF/WHEN PATIENT IS MEDICALLY STABLE CONSIDER INCREASING TUBE FEEDING GOAL RATE TO VITAL AF 1.2 @ 50 ML/HR X 24 HR -THIS WILL PROVIDE 1200 ML OF VOLUME, 1440 KCAL, AND 90 GM OF PROTEIN 3. IF/WHEN PATIENT IS EXTUBATED CONSIDER ORDERING A SWALLOW EVALUATION TO BEGIN PO DIET 4. RD TO FOLLOW-UP 2-3 DAYS, HIGH RISK ASHELY FARRAR RD
--- NOTE | 2019-08-27 14:48 | NUR ---
DR JOHN CALLED TO NOTIFY THAT PT'S HR IS NOW 150-155 ON DOBUTAMINE AND LEVOPHED, VERSED AND FENTANYL, ALSO DECREASED URINE OUTPUT OF 5-15/HR.
[2019-08-27] MEDS: NOREPINEPHRINE 16 MG in DEXTROSE 5% 250 ML IV PRN ×2 (15:31→22:23)
[2019-08-27] MEDS: NACL 0.9% 1,000 ML IV SCH (16:32)
--- NOTE | 2019-08-27 16:34 | NUR ---
DR TILLMAN AT BEDSIDE, NOTIFIED OF DECREASED URINE OUTPUT, PER DR DUDLEY DECREASE DOBUTAMINE TO 10MCG/KG/MIN AND DO NOT TITRATE, USE VASOPRESSIN AND LEVOPHED TO MANAGE BP PER DR DUDLEY
[2019-08-27] MEDS ORDERED: RIVAROXABAN 10 MG TAB PO SCH (17:00)
[2019-08-27] MEDS: FUROSEMIDE 100 MG in DEXTROSE 5% 100 ML IV SCH (17:09)
[2019-08-27 18:29] LABS: ANION GAP 14.6 (8-16); CARBON DIOXIDE 25.7 mmol/L (21-32); POTASSIUM 5.3 mmol/L (3.5-5.1)
--- NOTE | 2019-08-27 18:30 | NUR ---
DR RAJAN AT BEDSIDE, MADE AWARE OF BP86/46 MAP 67, NOW MAXED ON LEVOPHED, MAP >[address] RAJAN.
--- NOTE | 2019-08-27 19:25 | NUR ---
BEDSIDE REPORT GIVEN TO INSPECTOR INTEGRATED CIRCUITS NURSE KD
--- NOTE | 2019-08-27 19:30 | NUR ---
RECEIVED PT FROM NICKI ALCALA, PT DRY WEIGHT 97.5 KG, PT ON FENTANYL 2MCG/KG/HR, VERSED 5 MCG/HR , PT HAS 2 PERIPHERAL IV 18 G TO LEFT AND RIGHT FOREARMS, RIJ TRIPLE LUMEN, PT RASS -3, PERRL 3 MM, ETT TO VENT AC/VC FIO2 40 VT 500 RR 18 PEEP 6, LUNG SOUNDS COARSE, PULSES PALPABLE UPPER AND LOWER EXTREMITIES, S1 AND S2 HEART SOUNDS HEARD, BOWEL SOUNDS ACTIVE ALL 4 QUADRANTS, F/C IN PLACE DRAINING CLEAR YELLOW URINE, PITTING EDEMA +3 UPPER EXTREMITIES AND +2 LOWER EXTREMITIES, PT ON VITAL AF 30 ML/HR FREE WATER FLUSH 50,L Q4 HR, NO RESIDUALS AT THIS TIME. Addendum: 08/28/19 at 0722 by Stevenson Nelson RN HOB 30 DEGREES PER PROTOCOL, SAFETY PROTOCOLS IN PLACE
[2019-08-27] MEDS ORDERED: VASOPRESSIN 20 UNITS in NACL 0.9% 250 ML IV SCH (19:35)
[2019-08-27] MEDS ORDERED: EPINEPHrine 1:1000 - 1 MG/ML AMP ONE ×2 (20:30→23:32)
[2019-08-27] MEDS: EPINEPHrine 1:1000 (1 mg/mL) 1 MG in DEXTROSE 5% 250 ML IV PRN ×2 (20:31→23:45)
[2019-08-27] MEDS ORDERED: CHLOROTHIAZIDE SODIUM 500 MG VIAL IV ONE (21:25)
--- NOTE | 2019-08-27 21:30 | NUR ---
PHONE CALL FROM DR RAJAN; SHANITA TO INCREASE LASIX FROM 5ML TO 10ML/HR; AWARE THAT PTS BP 64/42
[2019-08-27] MEDS: ATORVASTATIN 20 MG TAB PO SCH (21:53)
--- NOTE | 2019-08-27 22:00 | NUR ---
DR. RAJAN SPOKE WITH FAMILY ABOUT CHANGING PT CODE STATUS FAMILY WISHES TO COME SEE PT BEFORE MAKING FAMILY DECISION
--- NOTE | 2019-08-27 22:35 | NUR ---
PT SON AT BEDSIDE ON UNIT WITH DR. RAJAN TO SEE PT AND DISCUSS NEXT STEPS
--- NOTE | 2019-08-27 22:55 | NUR ---
DR. RAJAN CALLED UNIT TO HAVE PT CODE STATUS CHANGED TO DNR
[2019-08-28] VITALS (104 sets, daily range): BP systolic 58–118; BP diastolic 40–78
[2019-08-28] MEDS: MIDAZOLAM MDV 50 MG in NACL 0.9% 40 ML IV PRN ×3 (00:53→22:51)
--- NOTE | 2019-08-28 01:07 | NUR ---
Brittani RAJAN CALLED AND INFORMED ABOUT PT HR 157 NO NEW ORDERS AT THIS TIME
[2019-08-28] MEDS: fentaNYL 1 MG in NACL 0.9% 80 ML IV PRN ×4 (01:59→20:57)
[2019-08-28] MEDS ORDERED: EPINEPHrine 1:1000 - 1 MG/ML AMP ONE ×2 (02:24→05:36)
[2019-08-28] MEDS: EPINEPHrine 1:1000 (1 mg/mL) 1 MG in DEXTROSE 5% 250 ML IV PRN ×2 (02:49→05:39)
[2019-08-28] MEDS: FUROSEMIDE 100 MG in DEXTROSE 5% 100 ML IV SCH ×2 (03:39→15:11)
[2019-08-28] MEDS: AMIODARONE 450 MG in DEXTROSE 5% 250 ML IV SCH ×2 (04:21→19:20)
--- NOTE | 2019-08-28 04:30 | NUR ---
BATHED PT, CHANGED PT LINENS, PT REMAINS HYPOTENSIVE, WITH TACHYCARDIA, WILL CONTINUE TO MONITOR
[2019-08-28] MEDS: PIPERACILLIN/TAZOBACTAM 3.375 GM in DEXTROSE 5% 50 ML IV SCH ×4 (05:00→23:27)
[2019-08-28] MEDS: DOBUTamine 500 MG/D5W PREMIX 250 ML IV SCH ×2 (05:33→15:08)
--- NOTE | 2019-08-28 06:00 | NUR ---
PT STATUS REMAINS UNCHANGED PT HAS GENERATED MORE OUTPUT FROM MILLER, WILL CONTINUE TO MONITOR PT
[2019-08-28 06:15] LABS: BASOPHILS % (AUTO) 0.2 % (0.0-2.0); HEMATOCRIT 39.6 % (36-52); HEMOGLOBIN 12.9 g/dL (12.0-18.0); LYMPHOCYTES # (AUTO) 0.4 K/uL (2.0-11.5); LYMPHOCYTES % (AUTO) 2.2 % (20.5-51.1); MEAN CORPUSCULAR HEMOGLOBIN 31 pg (27-31); MEAN CORPUSCULAR HGB CONC 33 g/dL (33-37); MEAN CORPUSCULAR VOLUME 95.5 fL (80-94); MONOCYTES # (AUTO) 2.6 K/uL (0.8-1.0); MONOCYTES % (AUTO) 13.9 % (1.7-9.3); NEUTROPHILS # (AUTO) 15.8 K/uL (1.8-7.7); NEUTROPHILS % (AUTO) 83.7 % (42.2-75.2); PLATELET COUNT (AUTO) 252 K/uL (140-450); RED BLOOD CELL COUNT(AUTO) 4.14 MIL/uL (4.20-6.10); RED CELL DISTRIBUTION WIDTH 17.5 % (11.6-13.7); WHITE BLOOD COUNT (AUTO) 18.9 K/uL (4.8-10.8)
[2019-08-28 07:01] LABS: ALBUMIN 2.6 g/dL (3.4-5.0); ANION GAP 16.9 (8-16); CARBON DIOXIDE 24.2 mmol/L (21-32); CREATININE 3.6 mg/dL (0.6-1.3); MAGNESIUM 1.9 mg/dL (1.8-2.4); PHOSPHORUS 7.6 mg/dL (2.5-4.9); POTASSIUM 5.1 mmol/L (3.5-5.1); TOTAL BILIRUBIN 1.9 mg/dL (0.0-1.0)
--- NOTE | 2019-08-28 07:20 | NUR ---
REPORT GIVEN TO NICKI RN, PT DISPLAY NO APPARENT SIGNS OF DISTRESS AT THIS TIME
--- NOTE | 2019-08-28 07:26 | NUR ---
RECEIVED ON A TadpolesAPE R860 VENTILATOR PLUGGED INTO RED OUTLET TOLERATING WELL WITHOUT ADVERSE REACTIONS NOT TO AN ENDOTRACHEAL TUBE #7.5 SECURED AN WTH AN ANCHOR FAST AMBU BAG AT BEDSIDE GOOD CHEST RISE
--- NOTE | 2019-08-28 07:30 | NUR ---
BEDSIDE REPORT RECEIVED FROM JAW SKINNER NURSE, PT SEDATED WITH FENTANYL AND VERSED TO RASS -3, SKIN WARM DRY COLOR WNL, PT ON CARDIOPULM MONITOR CONTINUOUSLY HR 152 A-FLUTTER, RR 19, BP 83/44, O2SAT 95%, ETT TO VENT 7.5FR, 26CM AT TEETH, ACVC MODE, FIO2 40%, VT 500, RR 18, PEEP 6, EQUAL CHEST RISE AND FALL NOTED, OGT IN PLACE, VITAL AF AT 30ML/HR, FWF 50ML/4HR, PIV TO BILAT AV 18Gs, CENTRAL LINE TO RIJ, SITES WNL, ABD SOFT NON DISTENDED, SKIN INTACT, BILAT UE AND LE EDEMA NOTED, MILLER IN PLACE, DRAINING SMALL AMT TO GRAVITY, ALL SAFETY MEASURES IN PLACE, POC REVIEWED, WILL CONTINUE TO MONITOR CURRENT DRIPS: DRY WT 97.5KG EPINEPHRINE 7 MCG/MIN (105ML/HR), LEVOPHED 30MCG/MIN (28.11ML/HR), AMIODARONE 0.5MG/HR (16.66ML/HR), VERSED 5MCG/HR (5ML/HR), FENTANYL 2MCG/KG/HR (19.5ML/HR), DOBUTAMINE 10MCG/KG/MIN (29.25ML/HR), LASIX 10MG/HR (10ML/HR) IVF NS AT 10ML/HR.
--- NOTE | 2019-08-28 07:55 | NUR ---
DR OBREGON AND MEDICAL TEAM AT BEDSIDE.
[2019-08-28] MEDS: NOREPINEPHRINE 16 MG in DEXTROSE 5% 250 ML IV PRN ×2 (08:16→19:24)
[2019-08-28] MEDS: HYDROCORTISONE NA SUCC 100 MG/2 ML VIAL IV SCH ×2 (08:23→20:09)
[2019-08-28] MEDS: ASPIRIN 81 MG TAB.CHEW PO SCH (08:23)
[2019-08-28] MEDS: PANTOPRAZOLE 40 MG INJ VIAL IVP SCH (08:24)
[2019-08-28] MEDS: EPINEPHrine 1:1000 (1 mg/mL) 6 MG in DEXTROSE 5% 250 ML IV PRN ×2 (08:31→21:00)
[2019-08-28] MEDS ORDERED: RIVAROXABAN 10 MG TAB PO SCH (09:00)
--- NOTE | 2019-08-28 09:20 | NUR ---
SISTER ASYA CALLED TO GET UPDATES ON CONDITION.
--- NOTE | 2019-08-28 09:40 | NUR ---
AM CARE DONE, PERICARE, MILLER CARE, ORAL CARE.
--- NOTE | 2019-08-28 09:59 | NUR ---
SEDATED RESTING WELL NO EVIDENCE OF PULMONARY DISTRESS NOTED GOOD CHEST RISE AND AERATION THROUGHOUT BILATERAL LUNG SMITH AIRWAY PATENT
[2019-08-28] MEDS ORDERED: VANCOMYCIN 1,500 MG in DEXTROSE 5% 500 ML IV SCH (10:00)
--- NOTE | 2019-08-28 10:30 | NUR ---
DR JAVIER AT BEDSIDE, ORDER FOR CA GLUCONATE RECEIVED (TO HELP INCREASE BP).
--- NOTE | 2019-08-28 11:10 | NUR ---
MOTOR TRANSPORT INSPECTOR AT BEDSIDE
[2019-08-28] MEDS ORDERED: CALCIUM GLUCONATE 10% 2,000 MG in NACL 0.9% 50 ML IV SCH (12:00)
[2019-08-28] MEDS ORDERED: VANCOMYCIN IV SCH (12:00)
[2019-08-28] MEDS ORDERED: DEXTROSE 5% IV SCH (12:00)
--- NOTE | 2019-08-28 12:00 | NUR ---
NO SOB NOTED GOOD CHEST RISE
--- NOTE | 2019-08-28 13:30 | NUR ---
PT CONDITION REMAINS SAME, HR 150, BP 97/50, RR18, SAT 94% ON SAME VENT SETTING, FENTANYL AND VERSED DRIP RASS -3, LASIX, DOBUTAMINE, LEVO, AMIO, EPI DRIP, SKIN WARM DRY, BED BATH PROVIDED, RT KILLIAN AT BEDSIDE FOR TRACH CARE, MILLER DRAINING LIGHT YELLOW URINE, >100/HR NOW. WILL CONTINUE TO MONTIOR
--- NOTE | 2019-08-28 13:52 | NUR ---
SEDATED NO EVIDENCE OF PULMONARY DISTRESS NOTED GOOD CHEST RISE AIRWAY PATENT
--- NOTE | 2019-08-28 14:25 | NUR ---
DR TILLMAN TO BEDSIDE, URINE OUT PUT REPORTED. DR TILLMAN PROVIDED WITH PHONE NUMBER FOR SISTER, HE WILL CALL HER TO DISCUSS DIALYSIS.
--- NOTE | 2019-08-28 15:45 | NUR ---
DR FUENTES AT BEDSIDE, REPORTED OF RAPID AFLUTTER SINCE YESTERDAY, TELEPHONE CONSENT OBTAINED FROM SISTER ASYA FOR SYNCHRONIZED CARDIOVERSION, 2 RNs (BROOKE AND MYSELF) CONFIRMED ON THE PHONE.
--- NOTE | 2019-08-28 15:48 | NUR ---
SEDATED GOOD CHEST RISE AIRWAY PATENT
--- NOTE | 2019-08-28 15:54 | NUR ---
SYNCHRONIZED CARDIOVERSION BY DR ALFREDO PT CONVERTED TO SINUS TACHYCARDIA AFTER 1 SHOCK AT 200J.
[2019-08-28] MEDS: NACL 0.9% 1,000 ML IV SCH (16:32)
--- NOTE | 2019-08-28 16:41 | NUR ---
PT'S DAUGHTERS ANGELIQUE AND KIKE TOOK TURNS TO ICU TO SEE PT THROUGH THE DOOR.
--- NOTE | 2019-08-28 16:45 | NUR ---
PER DR WHEATLEY, KEEP AMIO DRIP AT 0.5MG, TRY TO DECREASE RATE OF EPINEPHRINE DRIP TOLERATED.
[2019-08-28] MEDS ORDERED: hePARIN / DEXT 5% PREMIX 250 ML IV SCH (16:55)
--- NOTE | 2019-08-28 17:25 | NUR ---
SISTER ASYA AND BROTHERS TOOK TURNS TO ICU TO SEE PT THROUGH THE WINDOW, PT CONDITION UPDATED.
--- NOTE | 2019-08-28 17:45 | NUR ---
BP 78/47 HR 107, INCREASED EPI DRIP PER ORDER.
--- NOTE | 2019-08-28 17:50 | NUR ---
SEDATED RESTING WELL GOOD CHEST RISE AIRWAY PATENT
[2019-08-28] MEDS ORDERED: HEPARIN PER PHARMACY MC PRN (18:28)
--- NOTE | 2019-08-28 18:55 | NUR ---
DR RAJAN MADE AWARE OF CONTINUEING LOW BP 78/45 WITH EPINEPHRINE DRIP AND LEVOPHED DRIP BOTH MAXED.
--- NOTE | 2019-08-28 19:30 | NUR ---
REVCEIVED PT FROM DAY SHIFT RN, PT DRY WEIGHT 97.5 KG, RASS -3 PT ETT TO VENT, FIO2 40% VT 500 RR 18 PEEP 6, PT HAS TRIPLE LUMEN RIJ, BILATERAL FOREARM 18G PERIPHERAL IV, PT HAS MILLER CATHETER DRAINING CLEAR YELLOW URINE OGT TO FEEDING 30 ML/HR FREE WATER FLUSH 100 ML Q4HR. PT PERRL 2MM WITH SLUGGISH RESPONSE, LUNG SOUNDS DIMINISHED LOWER LOBES, S1 AND S2 HEART SOUNDS HEARD, WITH PULSES PALPABLE UPPER AND LOWER EXTREMITIES, PT HAS PITTING EDEMA +3 UPPER AND LOWER EXTREMITIES, SKIN IS INTACT WITH BRUISES NOTED ON BOTH ARMS. HOB 30 DEGREES PER PROTOCOL, SAFETY PROTOCOLS IN PLACE AND BED IS IN LOWEST POSITION, WILL CONTINUE TO MONITOR PT. Addendum: 08/29/19 at 0201 by Stevenson Nelson RN LEVOPHED 30MCG/MIN, VERSED 5MG/HR, AMIODARONE, 0.5 MG/MIN, DOBUTAMINE 10MCG/KG/MIN, LASIX 8MG/HR, FENTANYL 1.5 MCG/KG/HR, EPINEPHRINE 10MCG/MIN. WATER FLUSH IS 50ML Q4
[2019-08-28] MEDS: hePARIN / DEXT 5% PREMIX 250 ML IV SCH (19:39)
--- NOTE | 2019-08-28 19:45 | NUR ---
STARTED HEPARIN DRIP 1000 UNITS/HR AFTER GIVING 5,000 UNIT BOLUS, WILL CONTINUE TO MONITOR PT
--- NOTE | 2019-08-28 20:00 | NUR ---
PT MEDS GIVEN NO RESIDUALS FROM FEEDING, WILL CONTINUE TO MONITOR PT
[2019-08-28] MEDS: ATORVASTATIN 20 MG TAB PO SCH (20:10)
--- NOTE | 2019-08-28 21:18 | NUR ---
PT STARTED COUGHING, AFTER SUCTIONING PT, BLOODY SPUTUM WAS OBSERVED CALLED DR. RAJAN, WHO ORDERD HEPARIN DRIP TO BE HELD
--- NOTE | 2019-08-28 23:00 | NUR ---
STARTED PT ON NEW FEEDING VITAL AF 30 ML/HR FREE WATER FLUSH 50ML Q4HR, WILL CONTINUE TO MONITOR PT
--- NOTE | 2019-08-28 23:40 | NUR ---
PT SUCTIONED OBTAINED SMALL AMOUNT OF THICK BLOODY SECRETIONS, AIRWAY IS PATENT AND ETT IS SECURE. WILL CONTINUE TO MONITOR.
[2019-08-29] VITALS (106 sets, daily range): BP systolic 73–127; BP diastolic 41–85
[2019-08-29] MEDS: DOBUTamine 500 MG/D5W PREMIX 250 ML IV SCH ×3 (00:35→17:54)
--- NOTE | 2019-08-29 01:52 | NUR ---
PT SUCTIONED OBTAINED SMALL AMOUNT OF THICK CLEAR WITH BLOOD TINGED SECRETIONS, AIRWAY IS PATENT AND ETT IS SECURE. PT NOT IN ANY DISTRESS AT THIS TIME. WILL CONTINUE TO MONITOR.
--- NOTE | 2019-08-29 01:55 | NUR ---
RT SUCTIONED PT SPUTUM STILL BLOOD TINGED, DR. RAJAN NOTIFIED, GAVE ORDERS TO WITHHOLD HEPARIN DRIP FOR NOW.
[2019-08-29] MEDS: fentaNYL 1 MG in NACL 0.9% 80 ML IV PRN ×3 (04:16→19:01)
--- NOTE | 2019-08-29 04:33 | NUR ---
DR. RAJAN CALLED, INFORMED BLOOD TINGED SPUTUM HAS , RECEIVED ORDERS TO RESTART HEPARIN DRIP
[2019-08-29] MEDS: PIPERACILLIN/TAZOBACTAM 3.375 GM in DEXTROSE 5% 50 ML IV SCH ×3 (05:06→17:05)
[2019-08-29] MEDS: FUROSEMIDE 100 MG in DEXTROSE 5% 100 ML IV SCH (05:08)
[2019-08-29] MEDS: NOREPINEPHRINE 16 MG in DEXTROSE 5% 250 ML IV PRN ×2 (05:13→14:47)
--- NOTE | 2019-08-29 05:21 | NUR ---
PT REMAINS ON DOCUMENTED VENT SETTINGS. PT NOT IN ANY DISTRESS AT THIS TIME. ETT IS SECURE WITH A PATENT AIRWAY. VENT ALARMS ON AND FUNCTIONING.
--- NOTE | 2019-08-29 06:00 | NUR ---
TURNED PT PROVIDED ORAL AND MILLER CATHETER CARE, PT DISPLAYS NO SIGNS OF DISTRESS WILL CONTINUE TO MONITOR
[2019-08-29 06:41] LABS: BASOPHILS % (AUTO) 0.2 % (0.0-2.0); HEMATOCRIT 38.6 % (36-52); HEMOGLOBIN 12.3 g/dL (12.0-18.0); LYMPHOCYTES # (AUTO) 0.2 K/uL (2.0-11.5); LYMPHOCYTES % (AUTO) 1.2 % (20.5-51.1); MEAN CORPUSCULAR HEMOGLOBIN 31 pg (27-31); MEAN CORPUSCULAR HGB CONC 32 g/dL (33-37); MEAN CORPUSCULAR VOLUME 96.7 fL (80-94); MONOCYTES # (AUTO) 2.7 K/uL (0.8-1.0); MONOCYTES % (AUTO) 13.8 % (1.7-9.3); NEUTROPHILS # (AUTO) 16.6 K/uL (1.8-7.7); NEUTROPHILS % (AUTO) 84.8 % (42.2-75.2); PLATELET COUNT (AUTO) 229 K/uL (140-450); RED BLOOD CELL COUNT(AUTO) 3.99 MIL/uL (4.20-6.10); RED CELL DISTRIBUTION WIDTH 17.5 % (11.6-13.7); WHITE BLOOD COUNT (AUTO) 19.5 K/uL (4.8-10.8)
--- NOTE | 2019-08-29 07:20 | NUR ---
REPORT GIVEN TO DAYSHIFT RN, PT IN NO SIGNS OF DISTRESS AT HANDOFF
--- NOTE | 2019-08-29 07:30 | NUR ---
RECEIVED BEDSIDE REPORT FROM VP D[employer]ET[employer] RN. PT IS SEDATED, RASS -3. AFEBRILE. FLACC 0. NORMAL SINUS RHYTHM ON MONITOR. S1 S2 HEARD. ETT TO VENT WITH SETTINGS A/C VC FIO2 40%, VT 500, RR 18, PEEP 6. BREATHING EVEN AND UNLABORED. LUNGS SOUND DIMINISHED LOWER LOBES. OGT IN PLACE, PLACEMENT CONFIRMED. PT IS ON TUBE FEEDING VITAL AF AT 30 ML/HR, FWF 50 ML Q4H. ABDOMEN ROUND, SOFT. CENTRAL LINE TLC TO RIGHT IJ, PERIPHERAL IVS G18 TO LEFT AND RIGHT FOREARM ASYMPTOMATIC, PATENT AND INTACT. PT IS ON LEVOPHED DRIP AT 30 MCG/MIN, VERSED DRIP AT 5 MG/HR, FENTANYL DRIP AT 1.5 MCG/KG/HR (DRY WEIGHT 97.5 KG), HEPARIN DRIP AT 13 UNITS/HR, AMIODARONE DRIP AT 0.5 MG/MIN, DOBUTAMINE AT 10 MCG/KG/MIN, LASIX DRIP AT 8 MG/HR, EPINEPHRINE AT 10 MCG/MIN, IVF NS TKO. MILLER CATH IN PLACE DRAINING MARYBEL URINE TO GRAVITY. SKIN IS INTACT, DRY AND WARM TO TOUCH. +3 PITTING EDEMA NOTED TO BUE/BLE. CAP REFILL < 3 SEC. HOB AT 30 DEGREES. BED IN LOWEST POSITION LOCKED. CALL LIGHT WITHIN REACH. WILL CONTINUE TO MONITOR.
[2019-08-29 07:38] LABS: TOTAL BILIRUBIN 1.7 mg/dL (0.0-1.0)
--- NOTE | 2019-08-29 07:38 | NUR ---
RECEIVED ON A [employer] R860 VENTILATOR PLUGGED INOT RED OUTLET TOLERATING WELL WITHOUT ADVERSE REACTIONS NOTED TO AN ENDOTRACHEAL TUBE #7.5 SECURED AT 26cm WITH AN ANCHOR FAST CUFF PRESSURE CHECKED NOTED AMBU BAG AT BEDSIDE LOC NON RESPONSIVE TO ANIMAL CAREGIVER VERBAL COMMANDS GOOD CHEST RISE ENDOTRACHEAL SUCTION FOR MODERATE THICK YELLOW WITH BLOOD STREAKED SECRETIONS AIRWAY PATENT
--- NOTE | 2019-08-29 07:45 | NUR ---
DR. OBREGON AND RESIDENT GROUP IN TO SEE PT. WILL FOLLOW UP ON ORDERS.
[2019-08-29] MEDS ORDERED: ALBUTEROL SULFATE/IPRATROPIU 3 ML SOL IH PRN (08:00)
[2019-08-29 08:21] LABS: ALBUMIN 2.4 g/dL (3.4-5.0); ANION GAP 18.5 (8-16); CARBON DIOXIDE 21.9 mmol/L (21-32); MAGNESIUM 2.2 mg/dL (1.8-2.4); PHOSPHORUS 8.4 mg/dL (2.5-4.9); POTASSIUM 5.4 mmol/L (3.5-5.1)
[2019-08-29] MEDS: PANTOPRAZOLE 40 MG INJ VIAL IVP SCH (08:21)
[2019-08-29] MEDS: HYDROCORTISONE NA SUCC 100 MG/2 ML VIAL IV SCH ×3 (08:21→20:54)
[2019-08-29] MEDS: ASPIRIN 81 MG TAB.CHEW PO SCH (08:21)
[2019-08-29 08:42] LABS: CREATININE 4.5 mg/dL (0.6-1.3)
[2019-08-29] MEDS: EPINEPHrine 1:1000 (1 mg/mL) 6 MG in DEXTROSE 5% 250 ML IV PRN ×2 (08:50→21:10)
--- NOTE | 2019-08-29 08:50 | NUR ---
MEDICATIONS ADMINISTERED ORDERED. PT TOLERATED WELL.
[2019-08-29] MEDS ORDERED: FUROSEMIDE 20 MG/2 ML VIAL IVP SCH (08:54)
[2019-08-29] MEDS ORDERED: ALBUMIN HUMAN 25% 50 ML IV SCH (09:09)
--- NOTE | 2019-08-29 09:16 | NUR ---
SCREEN FOR LOW DEEP SCALE AT RISK, CONTINUE TO FOLLOW PRESSURE ULCER PREVENTION INTERVENTIONS. -TURN AND REPOSITION PATIENT Q 2H -ASSESS AND MONITOR SKIN CONDITION DURING POSITION CHANGE -OFFLOAD BILATERAL HEELS BY PLACING PILLOWS UNDER CALVES AT ALL TIMES, UNLESS OTHERWISE CONTRAINDICATED -PRESSURE REDISTRIBUTION BY PLACING PILLOWS AND OFFLOADING SACRALCOCCYX -KEEP SKIN CLEAN AND DRY AT ALL TIMES.
--- NOTE | 2019-08-29 10:11 | NUR ---
DR. ARREDONDO IN TO SEE PT. WILL FOLLOW UP ON ORDERS.
[2019-08-29] MEDS: MIDAZOLAM MDV 50 MG in NACL 0.9% 40 ML IV PRN (10:31)
[2019-08-29] MEDS ORDERED: FUROSEMIDE 100 MG in DEXTROSE 5% 100 ML IV SCH (11:20)
[2019-08-29] MEDS: AMIODARONE 450 MG in DEXTROSE 5% 250 ML IV SCH (11:25)
--- NOTE | 2019-08-29 11:45 | NUR ---
RESTING WELL NO DISTRESS NOTED GOOD EQUAL CHEST RISE AT THIS TIME
--- NOTE | 2019-08-29 12:49 | NUR ---
PT SEEN BY DR. TILLMAN. WILL FOLLOW UP WITH ANY NEW ORDERS. Addendum: 08/29/19 at 1625 by Xi Desouza RN DR. TILLMAN AWARE OF ABNORMAL BMP RESULTS
[2019-08-29] MEDS: ALBUTEROL SULFATE/IPRATROPIU 3 ML SOL IH SCH ×2 (13:33→18:00)
--- NOTE | 2019-08-29 14:05 | NUR ---
BLOOD PRESSURE 83/51 (MAP 64), HR 95. PT ON LEVOPHED, EPINEPHRINE, DOBUTAMINE DRIPS, ALL AT MAXIMUM DOSE. DR. WHEATLEY MADE AWARE. WILL FOLLOW UP ON ORDERS.
[2019-08-29] MEDS ORDERED: SODIUM BICARBONATE 8.4% PFS 50 MEQ/50 ML SYR IVP SCH (14:13)
--- NOTE | 2019-08-29 14:40 | NUR ---
CALLED DR. ARMIDA JAVIER [phone] TO REVIEW AB SAMPLE REPORT
--- NOTE | 2019-08-29 14:41 | NUR ---
CALL BACK FROM DR. ARMIDA JAVIER REVIEWED ABG SAMPLE REPORT NEW ORDER: INCREASE RATE TO 28 BPM Addendum: 08/29/19 at 1515 by Felix Fox RT NO ABG REQUIRED
--- NOTE | 2019-08-29 14:56 | NUR ---
CALLED DR. ANDREA WHEATLEY [phone] NOTIFIED OF TORBO FROM DR. ARMIDA JAVIER PER ABG SAMPLE REPORT INCREASE RATE TO 28 BPM NO ABG REQUIRED
--- NOTE | 2019-08-29 14:57 | NUR ---
08/29/19 RD FOLLOW UP COMPLETED PLEASE REFER TO NUTRITION ASSESSMENT UNDER CARE ACTIVITY FOR ESTIMATED NUTRITIONAL NEEDS. 1. CONTINUE VITAL 1.2 @ 30 ML/HR X 24 HR -THIS WILL PROVIDE 720 ML OF VOLUME, 864 KCAL AND 54 GM OF PROTEIN 2. IF/WHEN PATIENT IS MEDICALLY STABLE CONSIDER INCREASING TUBE FEEDING GOAL RATE TO VITAL @ 50 ML/HR X 24 HR -THIS WILL PROVIDE 1200 ML OF VOLUME, 1440 KCAL, AND 90 GM OF PROTEIN 3. IF/WHEN PATIENT IS EXTUBATED CONSIDER ORDERING A SWALLOW EVALUATION TO BEGIN PO DIET 4. RD TO FOLLOW-UP 2-3 DAYS, HIGH RISK ASHELY FARRAR RD
--- NOTE | 2019-08-29 15:10 | NUR ---
CHEST X-RAY AT BEDSIDE. PT TOLERATING WELL.
--- NOTE | 2019-08-29 15:37 | NUR ---
SEDATED WELL WITHOUT EVIDENCE OF PULMONARY DISTRESS NOTED GOOD CHEST RISE AND AERATION THROUGHOUT BILATERAL LUNG SMITH PER TORBO DR. ARMIDA JAVIER (IE: ABG SAMPLE REPORT) INCREASED RATE TO 28 BPM ROTANA/RN NOTIFIED
--- NOTE | 2019-08-29 16:00 | NUR ---
VAP ORAL CARE GIVEN. TURNED AND REPOSITIONED. PRESSURE AREAS OFF LOADED.
--- NOTE | 2019-08-29 17:41 | NUR ---
RESTING COMFORTABLE NO PULMONARY DISTRESS NOTED EQUAL CHEST RISE GOOD AERATION THROUGHOUT BILATERAL LUNG SMITH AIRWAY PATENT
--- NOTE | 2019-08-29 18:35 | NUR ---
PT SEEN AND EXAMINED BY DR. RAJAN. UPDATES GIVEN ON PT'S CONDITION, MADE AWARE OF LOW URINE OUTPUT 220 ML THROUGHOUT THE SHIFT. WILL FOLLOW UP ON ORDERS.
--- NOTE | 2019-08-29 19:17 | NUR ---
REPORT GIVEN TO HOE RUNNER RN FOR CONTINUITY OF CARE. NO SIGNS OF DISTRESS NOTED AT THIS TIME.
--- NOTE | 2019-08-29 19:25 | NUR ---
RECEIVED BEDSIDE REPORT FROM MORNING NURSE. PATIENT SEDATED RASS -3, ETT TO VENT WITH SETTING, AC MODE, FIO2 40%, VT 500, RATE 28, PEEP 6. TOLERATED WELL WITH VENT. NO ACUTE RESPIRATORY DISTRESS NOTED. SR ON THE PEST CONTROL SERVICE SALES AGENT. OGT IN PLACE TO FEEDING WITH VITAL AF 1.2 30ML/HR WITH FWF 50ML Q4. RESIDUAL CHECKED 30CC NOTED. PLACEMENT CHECKED. CENTRAL LINE TO RIGHT IJ, TRIPLE LUMENS. PERIPHERAL LINES TO RIGHT FOREARM 18G AND LEFT FOREARM 18G WITH LEVOPHED 30MCG/MIN, DOBUTAMINE 10MCG/KG/MIN, EPINEPHRINE 10MCG/MIN, VERSED 6MG/HR, FENTANYL 1.5MCG/KG/HR, HEPARIN DRIP AT 14UNITS/KG/YPX=6610NFRHK/HR=11ML/HR. BILATERAL UE AND LE +3 PITTING EDEMA NOTED. FLACC 0. BILATERAL SIDE RAILS UP, BED IN LOW POSITION. CALL LIGHT WITHIN REACH. WILL CONTINUE TO MONITOR.
--- NOTE | 2019-08-29 19:56 | NUR ---
RECEIVED PT FROM DAY SHIFT ON DOCUMENTED SETTINGS. VENT PLUGGED INTO RED OUTLET. BMV AT BEDSIDE. ALARMS AUDIBLE AND WORKING. ETT SECURED AND INTACT. PT IS IN NO DISTRESS. WILL CONT TO MONITOR
[2019-08-29] MEDS: ATORVASTATIN 20 MG TAB PO SCH (20:54)
[2019-08-29] MEDS: MIDAZOLAM MDV 100 MG in NACL 0.9% 80 ML IV PRN (21:10)
--- NOTE | 2019-08-29 21:30 | NUR ---
ADMINISTERED SCHEDULED MEDICATION. NO ACUTE RESPIRATORY DISTRESS NOTED. TOLERATED WELL WITH VENT. RASS -3. FLACC 0. STILL MINIMAL URINE OUTPUT NOTED.
[2019-08-29] MEDS: hePARIN / DEXT 5% PREMIX 250 ML IV SCH (23:10)
[2019-08-30] VITALS (97 sets, daily range): BP systolic 69–150; BP diastolic 36–102
--- NOTE | 2019-08-30 | NUR ---
SEDATED WITH VERSED AND FENTANYL, RASS -3 NOTED. FLACC 0. PATIENT VOMIT X 1 NOTED. BUT RESIDUAL IS LESS THAN 10CC. HOLD FEEDING AT THIS TIME.
[2019-08-30] MEDS: fentaNYL 1 MG in NACL 0.9% 80 ML IV PRN ×4 (03:41→16:44)
[2019-08-30] MEDS: DOBUTamine 500 MG/D5W PREMIX 250 ML IV SCH ×3 (04:16→22:53)
[2019-08-30] MEDS: HYDROCORTISONE NA SUCC 100 MG/2 ML VIAL IV SCH ×3 (04:16→20:41)
[2019-08-30] MEDS: AMIODARONE 450 MG in DEXTROSE 5% 250 ML IV SCH ×2 (04:29→21:08)
--- NOTE | 2019-08-30 05:30 | NUR ---
pt remains on documented settings. no changes made. will cont to monitor
[2019-08-30] MEDS: PIPERACILLIN/TAZOBACTAM 3.375 GM in DEXTROSE 5% 50 ML IV SCH ×4 (06:00→12:40)
[2019-08-30 06:24] LABS: BASOPHILS % (AUTO) 0.1 % (0.0-2.0); HEMATOCRIT 37.9 % (36-52); LYMPHOCYTES # (AUTO) 0.3 K/uL (2.0-11.5); LYMPHOCYTES % (AUTO) 1.8 % (20.5-51.1); MEAN CORPUSCULAR HEMOGLOBIN 30 pg (27-31); MEAN CORPUSCULAR HGB CONC 32 g/dL (33-37); MEAN CORPUSCULAR VOLUME 95.5 fL (80-94); MONOCYTES % (AUTO) 11.5 % (1.7-9.3); NEUTROPHILS % (AUTO) 86.6 % (42.2-75.2); PLATELET COUNT (AUTO) 231 K/uL (140-450); RED BLOOD CELL COUNT(AUTO) 3.97 MIL/uL (4.20-6.10); RED CELL DISTRIBUTION WIDTH 17.5 % (11.6-13.7); WHITE BLOOD COUNT (AUTO) 17.3 K/uL (4.8-10.8)
[2019-08-30 06:33] LABS: MAGNESIUM 2.1 mg/dL (1.8-2.4); PHOSPHORUS 6.6 mg/dL (2.5-4.9)
[2019-08-30] MEDS: ALBUTEROL SULFATE/IPRATROPIU 3 ML SOL IH SCH ×3 (07:14→18:00)
--- NOTE | 2019-08-30 07:14 | NUR ---
RECEIVED ON A D[place] R860 VENTILATOR PLUGGED INOT RED OUTLET TOLERATING WELL WITHOUT ADVERSE REACTIONS NOTED TO AN ENDOTRACHEAL TUBE #7.5 SECURED AT 26cm TEETH/GUM LINE WITH AN ANCHOR FAST AMBU BAG AT BEDSIDE LOC SEDATED NO DISTRESS NOTED GOOD CHEAT RISE AND AERATION THROUGHOUT BILATERAL LUNG SMITH AIRWAY PATENT
--- NOTE | 2019-08-30 07:30 | NUR ---
RECEIVED BEDSIDE REPORT FROM TRAMPOLINE TEAM COACH RN. PT IS SEDATED, RASS -3. AFEBRILE. FLACC 0. NORMAL SINUS RHYTHM ON MONITOR. ETT TO VENT WITH SETTINGS A/C VC FIO2 40%, VT 500, PEEP 6. NO S/S OF RESPIRATORY DISTRESS NOTED. LUNGS SOUND DIMINISHED LOWER LOBES. OGT IN PLACE, PLACEMENT CONFIRMED. ABDOMEN ROUND, SOFT. CENTRAL LINE TLC TO RIGHT IJ, PERIPHERAL IVS G18 TO LEFT AND RIGHT FOREARM ASYMPTOMATIC, PATENT AND INTACT. PT IS ON LEVOPHED DRIP AT 26 MCG/MIN, VERSED DRIP AT 6 MG/HR, FENTANYL DRIP AT 1.5 MCG/KG/HR (DRY WEIGHT 97.5 KG), HEPARIN DRIP AT 1100 UNITS/HR = 11 ML/HR, AMIODARONE DRIP AT 0.5 MG/MIN, DOBUTAMINE AT 10 MCG/KG/MIN, EPINEPHRINE AT 10 MCG/MIN, IVF NS TKO. MILLER CATH IN PLACE DRAINING MARYBEL URINE TO GRAVITY. SKIN IS INTACT, DRY AND WARM TO TOUCH. +1 PITTING EDEMA NOTED TO BUE/BLE. CAP REFILL < 3 SEC. HOB AT 30 DEGREES. BED IN LOWEST POSITION LOCKED. CALL LIGHT WITHIN REACH. WILL CONTINUE TO MONITOR.
--- NOTE | 2019-08-30 07:35 | NUR ---
PER PM SHIFT . HOLD TUBE FEEDING DUE TO THERE ARE SOMETHING CAME OUT FROM PT'S MOUTH.
[2019-08-30 07:36] LABS: ANION GAP 17.9 (8-16); CARBON DIOXIDE 22.7 mmol/L (21-32); POTASSIUM 4.6 mmol/L (3.5-5.1)
[2019-08-30] MEDS: EPINEPHrine 1:1000 (1 mg/mL) 6 MG in DEXTROSE 5% 250 ML IV PRN (08:04)
--- NOTE | 2019-08-30 08:15 | NUR ---
DR. OBREGON AND RESIDENTS MAKE ROUND.
[2019-08-30 08:20] LABS: CREATININE 4.6 mg/dL (0.6-1.3)
--- NOTE | 2019-08-30 10:30 | NUR ---
ASSES PT. HE OPEN HIS EYE SPONTANEOUSLY, RESPONSE AND FOLLOW COMMAND APPROPRIATELY.
--- NOTE | 2019-08-30 11:09 | NUR ---
SEDATED NO DISTRESS NOTED GOOD CHEST RISE AIRWAY PATENT
--- NOTE | 2019-08-30 11:15 | NUR ---
VISIT BY HIS SISTER , SHE SEE HIM FROM OUTSIDE THE ROOM.
--- NOTE | 2019-08-30 11:45 | NUR ---
CALLED DR. BEN JOHN [phone] TO REVIEW ABG SAMPLE REPORT RESULTS WITHIN NORMAL LIMITS NO NEW ORDERS MD TO NOTIFY DR. ARMIDA JAVIER
--- NOTE | 2019-08-30 12:36 | NUR ---
DR. SABA CALL TO DECREASE EPINEPHRINE DOWN TO 4MCG/MIN.
[2019-08-30] MEDS ORDERED: VANCOMYCIN HCL 1.25 GM in DEXTROSE 5% 250 ML IV SCH (13:00)
--- NOTE | 2019-08-30 13:07 | NUR ---
STABLE NO EVIDENCE OF DISTRESS NOTED GOOD CHEST RISE AIRWAY PATENT
[2019-08-30] MEDS: NOREPINEPHRINE 16 MG in DEXTROSE 5% 250 ML IV PRN (13:42)
[2019-08-30] MEDS: MIDAZOLAM MDV 100 MG in NACL 0.9% 80 ML IV PRN (13:53)
--- NOTE | 2019-08-30 16:18 | NUR ---
PT PTT 54.1, NO RATE CHANGE NEEDED PER PROTOCOL. WILL CONTINUE AT 1100 UNITS/HR
--- NOTE | 2019-08-30 16:20 | NUR ---
PM CARE GIVEN , PT.HAS FEEDING MATERIAL LIKE COME OUT FROM HIS MOUTH .SUCTION OUT ABOUT 10ML. DR. WHEATLEY AWARE AND HOLD THE FEEDING FOR NOW.
[2019-08-30] MEDS: CALCIUM ACETATE 667 MG TAB PO SCH ×2 (16:28→17:00)
[2019-08-30] MEDS: ASPIRIN 81 MG TAB.CHEW PO SCH (16:28)
[2019-08-30] MEDS: PANTOPRAZOLE 40 MG INJ VIAL IVP SCH (16:28)
[2019-08-30] MEDS ORDERED: FUROSEMIDE 40 MG/4 ML VIAL IVP SCH (17:20)
--- NOTE | 2019-08-30 17:30 | NUR ---
DR. TILLMAN NEPHRO AND DR. WHEATLEY AT BEDSIDE. DR. TILLMAN STATED PT STILL OVERLOAD, HE WOULD LIKE TO ORDER SOME LASIX, AND NOTIFIED [address] WHEATLEY , DR. WHEATLEY SAID I DO NOT HAVE TO GIVE 1700 BECAUSE i just gave short time ago. .
--- NOTE | 2019-08-30 18:00 | NUR ---
UNABLE TO ADMINISTER TX. RT WAS UNAVAILABLE DUE TO EMERGENCY SITUATIONS
--- NOTE | 2019-08-30 18:20 | NUR ---
NOTIFIED DR. RAJAN , THEREARE SOME COFFEE GROUND SECRETION NOTED IN PT'S MOUTH WHILE SUCTION PT . DR. RAJAN MADE AWARE PT ON HEPARIN DRIP.
--- NOTE | 2019-08-30 19:48 | NUR ---
RECEIVED BEDSIDE REPORT FROM AM SHIFT NURSE. PATIENT IS LYING SUPINE IN BED IN SEMI-FOWLERS. RASS SCORE OF -3. ON ETT TO MECHANICAL VENTILATOR ON ACVC MODE, FIO2- 40, VT-500, AND PEEP 6. IV ACCESS ON RIGHT AC 20, RIGHT IJ TRIPLE LUMEN AND LEFT FOREARM 18 GAUGE. ON IV DRIPS OF HEPARIN 1100 UNITS/HR, LEVOPHED 26 MCG/MIN, VERSED 7 ML/HR, AMIODARONE 0.5 MG/MIN, DOBUTAMINE 10 MCG/KG/MIN, FENTANYL 1.5 MCG/KG/HR AND NS AT 5ML/HR. MILLER CATHETER IN PLACE, DRAINING WELL. PATIENT NOTED WITH BILATERAL RESTRAINTS, NO INJURY NOTED. NGT IN PLACE. BED IN LOW, BED LOCKED. SAFETY MEASURES IN PLACE. WILL CONTINUE TO MONITOR PATIENT CLOSELY. Addendum: 08/31/19 at 0040 by Madina Rea RN EDIT- OGT IN PLACE, NOT NGT.
--- NOTE | 2019-08-30 20:30 | NUR ---
SCHEDULED MEDS ADMINISTERED. ORAL CARE DONE.
[2019-08-30] MEDS: ATORVASTATIN 20 MG TAB PO SCH (20:55)
[2019-08-30] MEDS: PIPERACILLIN/TAZOBACTAM 2.25 GM in DEXTROSE 5% 50 ML IV SCH (20:55)
[2019-08-30] MEDS: FUROSEMIDE 40 MG/4 ML VIAL IVP SCH (20:57)
--- NOTE | 2019-08-30 21:08 | NUR ---
AMIODARONE DONE AND NEW BAG HUNG. WILL CONTINUE TO MONITOR PATIENT CLOSELY.
--- NOTE | 2019-08-30 22:02 | NUR ---
LEVOPHED TITRATED UP TO DOSE OF 29.94 MCG/MIN AND RATE OF 28.07 ML/HR TO KEEP SBP ABOVE 90.
--- NOTE | 2019-08-30 22:54 | NUR ---
DOBUTAMINE BAG CHANGED AT THIS TIME. INFUSING WELL AT RIGHT IJ. WILL CONTINUE TO MONITOR PATIENT CLOSELY.
[2019-08-30] MEDS: hePARIN / DEXT 5% PREMIX 250 ML IV SCH (23:55)
--- NOTE | 2019-08-30 23:55 | NUR ---
HEPARIN BAG HUNG. WILL CONTINUE TO MONITOR PATIENT CLOSELY.
[2019-08-31] VITALS (96 sets, daily range): BP systolic 98–136; BP diastolic 55–98
[2019-08-31] MEDS: fentaNYL 1 MG in NACL 0.9% 80 ML IV PRN ×3 (00:34→15:45)
--- NOTE | 2019-08-31 00:37 | NUR ---
NEW BAG OF FENTANYL HUNG. WILL CONTINUE TO MONITOR PATIENT.
[2019-08-31] MEDS ORDERED: NOREPINEPHRINE 4 MG/4 ML VIAL IV ONE (01:01)
[2019-08-31] MEDS: NOREPINEPHRINE 16 MG in DEXTROSE 5% 250 ML IV PRN ×2 (01:33→09:31)
--- NOTE | 2019-08-31 01:34 | NUR ---
NEW BAG OF LEVOPHED HUNG. WILL CONTINUE TO MONITOR PATIENT.
--- NOTE | 2019-08-31 03:47 | NUR ---
RN MORNING CARE AND VAP ORAL CARE DONE AT THIS TIME.
[2019-08-31] MEDS: PIPERACILLIN/TAZOBACTAM 2.25 GM in DEXTROSE 5% 50 ML IV SCH ×3 (05:05→20:27)
[2019-08-31] MEDS: HYDROCORTISONE NA SUCC 100 MG/2 ML VIAL IV SCH ×3 (05:08→20:28)
--- NOTE | 2019-08-31 05:10 | NUR ---
SCHEDULED MEDICATIONS GIVEN.
[2019-08-31 06:01] LABS: HEMATOCRIT 34.9 % (36-52); HEMOGLOBIN 11.4 g/dL (12.0-18.0); MEAN CORPUSCULAR HEMOGLOBIN 31 pg (27-31); MEAN CORPUSCULAR HGB CONC 33 g/dL (33-37); MEAN CORPUSCULAR VOLUME 94.5 fL (80-94); PLATELET COUNT (AUTO) 230 K/uL (140-450); RED BLOOD CELL COUNT(AUTO) 3.69 MIL/uL (4.20-6.10); RED CELL DISTRIBUTION WIDTH 16.4 % (11.6-13.7); WHITE BLOOD COUNT (AUTO) 19.3 K/uL (4.8-10.8)
[2019-08-31 06:57] LABS: LYMPHOCYTES % (MANUAL) 3 % (20-46); MONOCYTES % (MANUAL) 2 % (5-12)
[2019-08-31 06:58] LABS: ANION GAP 14.1 (8-16); CARBON DIOXIDE 25.2 mmol/L (21-32); POTASSIUM 4.3 mmol/L (3.5-5.1)
[2019-08-31 06:59] LABS: MAGNESIUM 2.2 mg/dL (1.8-2.4); PHOSPHORUS 6.2 mg/dL (2.5-4.9)
[2019-08-31 07:00] LABS: CREATININE 4.3 mg/dL (0.6-1.3)
--- NOTE | 2019-08-31 07:00 | NUR ---
LAB CALLED WITH CRITICAL LAB OF BUN 84 AND CREATININE 4.3. MD DOING ROUNDS, ENDORSING TO NEXT SHIFT TO FOLLOW UP WITH MD.
[2019-08-31] MEDS: MIDAZOLAM MDV 100 MG in NACL 0.9% 80 ML IV PRN ×2 (07:04→17:44)
--- NOTE | 2019-08-31 07:07 | NUR ---
NEW BAG OF JOSE VELAZQUEZ. WILL CONTINUE TO MONITOR PATIENT CLOSELY.
--- NOTE | 2019-08-31 07:10 | NUR ---
RECIVED PT ON VENT WITH SETTINGS CHARTED BREATH SOUNDS PRESENT BILAT SXN PT WITH MIN AMT SECS OFF WHITE AMBU BAG AT BEDSIDE VENT PLUGGED INTO RED OUTLET WILL CONTINUE TO MONITOR PT ON VENT
--- NOTE | 2019-08-31 07:20 | NUR ---
ENDORSED PATIENT TO AM SHIFT NURSE FOR CONTINUITY OF CARE. PATIENT IS ETT TO MECHANICAL VENTILATOR, TOLERATING VENT SETTINGS WELL. PATIENT IS AFEBRILE. MILLER CATHETER DRAINING WELL. IV SITES RIGHT AC 20 GAUGE, RIGHT IJ TRIPLE LUMEN AND LEFT FA 18 GAUGE, PATENT, INTACT AND INFUSING WELL. BED IN LOW, BED LOCKED, SAFETY MEASURES IN PLACE.
[2019-08-31] MEDS: ALBUTEROL SULFATE/IPRATROPIU 3 ML SOL IH SCH ×3 (07:27→18:00)
--- NOTE | 2019-08-31 07:30 | NUR ---
RECEIVED BEDSIDE REPORT FROM FLOAT TENDER RN. PT IS SEDATED, RASS -3. AFEBRILE. FLACC 0. SINUS RHYTHM ON MONITOR. ETT TO VENT WITH SETTINGS A/C VC FIO2 40%, VT 500, PEEP 6. RR 24.NO S/S OF RESPIRATORY DISTRESS NOTED. LUNGS SOUND DIMINISHED LOWER LOBES. OGT IN PLACE, PLACEMENT CONFIRMED. ABDOMEN ROUND, SOFT. CENTRAL LINE TLC TO RIGHT IJ, PERIPHERAL IVS G18 TO LEFT FOREARM ASYMPTOMATIC, PATENT AND INTACT. PT IS ON LEVOPHED DRIP AT 30 MCG/MIN=28.07 CC/HR, VERSED DRIP AT 7 MG/HR, FENTANYL DRIP AT 1.5 MCG/KG/HR (DRY WEIGHT 97.5 KG), HEPARIN DRIP AT 1100 UNITS/HR = 11 ML/HR, AMIODARONE DRIP AT 0.5 MG/MIN, DOBUTAMINE AT 10 MCG/KG/MIN, IVF NS TKO. MILLER CATH IN PLACE DRAINING MARYBEL URINE TO GRAVITY. SKIN IS INTACT, DRY AND WARM TO TOUCH. +1 PITTING EDEMA NOTED TO BUE/BLE. CAP REFILL < 3 SEC. HOB AT 30 DEGREES. BED IN LOWEST POSITION LOCKED. CALL LIGHT WITHIN REACH. WILL CONTINUE TO MONITOR.
--- NOTE | 2019-08-31 07:30 | NUR ---
RECIVED PT ON VENT WITH SETTINGS CHARTED ETT SITE SECURE SXN PT WITH MIN AMT SECS AMBU BAG AT BEDSIDE VENT PLUGGED INTO RED OUTLET WILL CONTINUE TO MONITOR PT ON VENT
[2019-08-31] MEDS: DOBUTamine 500 MG/D5W PREMIX 250 ML IV SCH ×2 (08:25→17:46)
[2019-08-31] MEDS: ASPIRIN 81 MG TAB.CHEW PO SCH (09:25)
[2019-08-31] MEDS: FUROSEMIDE 40 MG/4 ML VIAL IVP SCH ×2 (09:25→20:28)
[2019-08-31] MEDS: CALCIUM ACETATE 667 MG TAB PO SCH (09:25)
[2019-08-31] MEDS: PANTOPRAZOLE 40 MG INJ VIAL IVP SCH (09:25)
--- NOTE | 2019-08-31 09:39 | NUR ---
STARTED TUBE FEEDING VITAL AF AT 10 CC AND WATER FLUSH 50 CC Q [address] WHEATLEY VERBAL ORDER.
[2019-08-31] MEDS ORDERED: VANCOMYCIN PER PHARMACY MC PRN (10:05)
--- NOTE | 2019-08-31 10:53 | NUR ---
DR. LEVIN CAME IN TO CHECK PT. DR. MALIK ALSO IN UNIT. NOTIFIED PT HAS AMIODARONE DRIP MORE THAN 24 HRS, AND PT HAS VOMITING OCCASIONALLY. PER , OK TO CONTINUE TO AMIODARONE DRIP TODAY. DR. LEVIN ALSO ORDERED TITRATE LEVOPHED DRIP FRIST THEN TITRATE DOBUTAMINE DRIP. WILL CARRY OUT.
[2019-08-31] MEDS: AMIODARONE 450 MG in DEXTROSE 5% 250 ML IV SCH (13:59)
--- NOTE | 2019-08-31 14:03 | NUR ---
08/31/19 RD FOLLOW UP COMPLETED PLEASE REFER TO NUTRITION ASSESSMENT UNDER CARE ACTIVITY FOR ESTIMATED NUTRITIONAL NEEDS. 1. RD RECOMMENDED VITAL 1.2 AF @50 ML/HR X 24 HR -THIS WILL PROVIDE 1200 ML OF VOLUME, 1440 KCAL AND 90 GM OF PROTEIN 2. CONTINUE FREE WATER FLUSH OF 50 ML Q4H PER MD 3. RECOMMEND SWALLOW EVALUATION IF PT IS EXTUBATED AND STABLE FOR PO DIET 4. RD TO FOLLOW-UP 2-3 DAYS, HIGH RISK ASHELY FARRAR RD
--- NOTE | 2019-08-31 17:33 | NUR ---
LEFT PATIENT ON DOCUMENTED SETTINGS, PATIENT HAS NO SIGN OF DISTRESS. HME AND WOODARD CHANGED. VENT IS PLUGGED INTO RED OUTLET, ALARMS ARE ON AND FUNCTIONING, AMBU BAG AT BEDSIDE. ETT SECURED AND INTACT.
--- NOTE | 2019-08-31 18:08 | NUR ---
RESIDUAL CHECKED ZERO, INCREASE TUBE FEEDING RATE TO 20 CC/HR. TURNED AND REPOSITIONED PT. PT OPENED EYES AND WAS ABLE TO NOD HIS HEAD WHEN ASKED HIM QUESTIONS.
--- NOTE | 2019-08-31 19:12 | NUR ---
ENDORSED PT TO PM SHIFT RN.
--- NOTE | 2019-08-31 19:15 | NUR ---
RECEIVED BEDSIDE REPORT FROM AM SHIFT NURSE. PATIENT IS LYING IN BED SUPINE, RESTING WITH EYES CLOSED. RASS SCORE OF -3. PATIENT IS ABLE TO OPEN EYES AT TIMES FOR 5-10 SECONDS WHEN NAME IS CALLED OUT. SKIN IS INTACT BUT NOTED WITH SMALL MULTIPLE OLD SCABS ON LOWER RIGHT LEG AND MULTIPLE BRUISING ON UPPER EXTREMITY. NO DISTRESS NOTED, ON ETT TO MECHANICAL VENTILATOR, TOLERATING VENT SETTINGS WELL ON ACVC MODE, VT-500, FIO2-40, PEEP-6, RR-24. IV ACCESS NOTED ON RIGHT AC 20 GAUGE WITH HEPARIN DRIP RUNNING AT 11ML/HA=10063 U/HR, LEFT FOREARM 18 GAUGE SALINE LOCK AND RIGHT IJ TRIPLE LUMEN NOTED WITH LEVOPHED RUNNING AT 16.8ML/HR= 17.92MCG/MIN, IVF AT 5ML/HR, VERSED RUNNING AT 7 ML/HR, AMIODARONE RUNNING AT 16.66 ML/HR=0.5 MG/MIN, DOBUTAMINE RUNNING AT 29.25 ML/HR= 10MCG/HG/MIN AND FENTANYL RUNNING AT 14.61 ML/HR. MILLER CATHETER IN PLACE DRAINING YELLOW COLORED URINE WELL. NOTED WITH ONGOING CONTINUOUS FEEDING OF VITAL AF 1.2 AT A RATE OF 20ML/HR AND WATER FLUSH OF 50ML Q4H. NOTED WITH BILATERAL SOFT WRIST RESTRAINTS, NO INJURY NOTED. BED IN LOW, BED LOCKED. SAFETY MEASURES IN PLACE. WILL CONTINUE TO MONITOR PATIENT CLOSELY. Addendum: 09/01/19 at 1954 by Madina Rea RN FEEDING OF VITAL AF NOT VITAL AF 1.2
[2019-08-31] MEDS: ATORVASTATIN 20 MG TAB PO SCH (20:28)
--- NOTE | 2019-08-31 20:29 | NUR ---
SCHEDULED MEDICATIONS ADMINISTERED AT THIS TIME. VAP ORAL CARE DONE. NO DISTRESS NOTED.
--- NOTE | 2019-08-31 21:00 | NUR ---
NO RESIDUAL NOTED. AUSCULTATED OGT FOR POSITIVE PLACEMENT. OGT FEEDING INCREASED BY 10ML/HR WITH A NEW RATE OF 30ML/HR. GOAL RATE OF 50ML/HR. WILL CONTINUE TO MONITOR PATIENT CLOSELY.
--- NOTE | 2019-08-31 22:05 | NUR ---
REPOSITIONED PATIENT TO RIGHT SIDE. PATIENT OPENED EYES AND WAS ABLE TO NOD HEAD WHEN I SAID I WAS GOING TO REPOSITION HIM. NO DISTRESS NOTED.
[2019-09-01] VITALS (106 sets, daily range): BP systolic 87–144; BP diastolic 59–100
--- NOTE | 2019-09-01 00:05 | NUR ---
VAP ORAL CARE DONE AND SUCTIONED PATIENT. PATIENT IS MODERATELY SEDATED AND OPENS EYES UPON ORAL CARE AND SUCTIONING.
[2019-09-01] MEDS: fentaNYL 1 MG in NACL 0.9% 80 ML IV PRN ×5 (00:20→22:22)
--- NOTE | 2019-09-01 00:23 | NUR ---
DECREASED LEVOPHED FROM 17.92 MCG/MIN TO 15.91 MCG/MIN TO MAINTAIN SBP ABOVE 90 WITH CURRENT BP OF 117/80, HR 85, O2 100%.
[2019-09-01] MEDS: hePARIN / DEXT 5% PREMIX 250 ML IV SCH ×2 (01:11→22:25)
[2019-09-01] MEDS: NOREPINEPHRINE 16 MG in DEXTROSE 5% 250 ML IV PRN (01:55)
--- NOTE | 2019-09-01 01:55 | NUR ---
PATIENT SEDATED WITH RASS -3. OPENS EYES UPON SUCTIONING, WITH 02 AT 99%. NO DISTRESS NOTED. TOLERATED VENT SETTINGS WELL.
[2019-09-01] MEDS: DOBUTamine 500 MG/D5W PREMIX 250 ML IV SCH ×3 (03:23→21:51)
--- NOTE | 2019-09-01 04:00 | NUR ---
MORNING CARE DONE WITH ANOTHER RN. VAP ORAL CARE DONE. REPOSITIONED PATIENT WITH NO DISTRESS NOTED, TOLERATING VENT SETTINGS WELL.
[2019-09-01 04:56] LABS: BASOPHILS % (AUTO) 0.1 % (0.0-2.0); HEMOGLOBIN 11.6 g/dL (12.0-18.0); LYMPHOCYTES # (AUTO) 0.4 K/uL (2.0-11.5); LYMPHOCYTES % (AUTO) 2.3 % (20.5-51.1); MEAN CORPUSCULAR HEMOGLOBIN 31 pg (27-31); MEAN CORPUSCULAR HGB CONC 32 g/dL (33-37); MEAN CORPUSCULAR VOLUME 94.6 fL (80-94); MONOCYTES # (AUTO) 1.3 K/uL (0.8-1.0); NEUTROPHILS # (AUTO) 14.9 K/uL (1.8-7.7); NEUTROPHILS % (AUTO) 89.6 % (42.2-75.2); PLATELET COUNT (AUTO) 239 K/uL (140-450); RED BLOOD CELL COUNT(AUTO) 3.81 MIL/uL (4.20-6.10); RED CELL DISTRIBUTION WIDTH 17.2 % (11.6-13.7); WHITE BLOOD COUNT (AUTO) 16.6 K/uL (4.8-10.8)
[2019-09-01] MEDS: HYDROCORTISONE NA SUCC 100 MG/2 ML VIAL IV SCH ×3 (05:28→20:53)
[2019-09-01] MEDS: PIPERACILLIN/TAZOBACTAM 2.25 GM in DEXTROSE 5% 50 ML IV SCH ×3 (05:28→20:55)
[2019-09-01] MEDS: AMIODARONE 450 MG in DEXTROSE 5% 250 ML IV SCH ×2 (06:26→22:02)
--- NOTE | 2019-09-01 06:33 | NUR ---
NO RESIDUAL NOTED. AUSCULTATED FOR POSITIVE PLACEMENT. FEEDING INCREASED TO 40ML/HR. TOLERATING TUBE FEEDING WELL.
[2019-09-01 06:41] LABS: ANION GAP 12.1 (8-16); CARBON DIOXIDE 29.2 mmol/L (21-32); CREATININE 3.8 mg/dL (0.6-1.3); POTASSIUM 4.3 mmol/L (3.5-5.1)
[2019-09-01] MEDS: ALBUTEROL SULFATE/IPRATROPIU 3 ML SOL IH SCH ×3 (07:09→19:08)
--- NOTE | 2019-09-01 07:13 | NUR ---
ENDORSE TO AM SHIFT NURSE LINDA FOR CONTINUITY OF CARE. TOLERATING VENT SETTINGS WELL. SEDATED AT RASS -3. NO DISTRESS NOTED.
--- NOTE | 2019-09-01 07:15 | NUR ---
RECEIVED BEDSIDE REPORT FROM RIVER RAT NURSE RAJ FOR CONTINUITY OF CARE. PT IS LYING SUPINE ON BED, RESTING WITH EYES CLOSED, RASS -3, FLACC 0. RESPIRATION EVEN AND UNLABORED ON VENT; SETTING: A/C VC MODE, FIO2 40%, VT 500, RATE 24, FLOW 55 L/MIN, PEEP 6, PMAX 60, SPO2 AT 98%. NO ACUTE DISTRESS NOTED. IV ON RAC 20 GAUGE WITH HEPARIN DRIP RUNNING AT 11ML/TF=8322 UNIT/HR, LEFT FOREARM 18 GAUGE SALINE LOCK AND RIGHT IJ TRIPLE LUMEN NOTED WITH LEVOPHED RUNNING AT 14.92/HR= 15.91MCG/MIN, IVF AT 5ML/HR, VERSED RUNNING AT 7 ML/HR, AMIODARONE RUNNING AT 16.66 ML/HR=0.5 MG/MIN, DOBUTAMINE RUNNING AT 29.25 ML/HR= 10MCG/KG/MIN AND FENTANYL RUNNING AT 14.61 ML/HR= 1.998 MCG/KG/HR. MILLER CATHETER IN PLACE DRAINING WITH GRAVITY, YELLOW COLORED URINE, BAG WITH 40 ML URINE. SKIN IS INTACT AND CLEAN, SMALL MULTIPLE OLD SCABS ON LOWER R LEG AND MULTIPLE BRUISING ON UPPER EXTREMITY NOTED. SOFT WRISTS RESTRAINT ON BILATERALLY, NO SIGN OF INJURY AND CAPILLARY REFILLED < 3 SECONDS. ESOPHAGEAL TUBE IN PLACE, CONTINUOUS FEEDING OF VITAL AF 1.2 AT A RATE OF 40 ML/HR AND WATER FLUSH OF 50ML Q4H.SAFETY MEASURES IN PLACE. TELE MONITOR ATTACHED. SAFETY MEASURES IN PLACE, BED IN LOW POSITION AND BED LOCK.
[2019-09-01 07:25] LABS: MAGNESIUM 2.4 mg/dL (1.8-2.4); PHOSPHORUS 5.7 mg/dL (2.5-4.9)
--- NOTE | 2019-09-01 07:26 | NUR ---
recived pt o vent with setings as charted breath sounds present bilat sxn pt with min o mod amt off white secs ett secure ambu bag at bedside vent plugged into red outlet
--- NOTE | 2019-09-01 08:45 | NUR ---
CHECKED OGT RESIDUAL AND RECEIVED < 3 ML, INCREASED FEEDING TO 50 ML/HR AND H2O FLUSH 50 ML/Q4H.
[2019-09-01] MEDS ORDERED: VANCOMYCIN HCL 1.25 GM in DEXTROSE 5% 250 ML IV SCH (09:00)
[2019-09-01] MEDS: PANTOPRAZOLE 40 MG INJ VIAL IVP SCH (09:19)
[2019-09-01] MEDS: FUROSEMIDE 40 MG/4 ML VIAL IVP SCH ×2 (09:19→20:55)
[2019-09-01] MEDS: ASPIRIN 81 MG TAB.CHEW PO SCH (09:20)
--- NOTE | 2019-09-01 09:22 | NUR ---
APPT 44H FROM AM LAB, ADMINISTERED 2,500 UNIT BOLUS AND INCREASED 200 UNITS/ HR. HEPARIN IS INFUSING 1,300 UNIT/HR = 13 ML/HR, VERIFIED WITH [employer] DEMONSTRATION AGENT. CHECKED OGT RESIDUAL AND RECEIVED < 3 ML, ADMINISTERED ASPIRIN VIA OGT AND SCHEDULED MEDS VIA IVP. PT IS RESTING ON BED WITH EYES CLOSED, RESPIRATION EVEN AND UNLABORED ON ETT. NO ACUTE DISTRESS NOTED. TELE MONITOR ATTACHED.
[2019-09-01] MEDS: MIDAZOLAM MDV 100 MG in NACL 0.9% 80 ML IV PRN (09:59)
--- NOTE | 2019-09-01 09:59 | NUR ---
HUNG A NEW BAG OF VERSED AND CONTINUE DRIP AT 7 ML/HR.
--- NOTE | 2019-09-01 10:33 | NUR ---
RECEIVED A CALL FROM PT'S SISTER ASYA, UPDATED ASYA WITH PT'S CURRENT CONDITION. ASYA WAS AWARE. PER ASYA, SHE WILL COME TO VISIT PATIENT SHORTLY IN AN HOUR.
--- NOTE | 2019-09-01 11:02 | NUR ---
DR JAVIER BY BEDSIDE. PER DR JAVIER, LONG PT'S SYSTOLIC ABOVE 90, WE CAN TITRATE DOWN THE LEVOPHED. CURRENT BP IS 122/73. TITRATED TO 12 MCG.MIN.
--- NOTE | 2019-09-01 11:41 | NUR ---
HUNG A NEW BAG OF FENTANYL AND CONTINUE DRIPPING AT 19.48 ML/HR.
--- NOTE | 2019-09-01 12:06 | NUR ---
HUNG A NEW BAG OF DOBUTAMINE AND CONTINUE DRIPPING AT 29.25ML/HR. SISTER ASYA IS VISITING PT BY OUTSIDE OF PT'S ROOM.
--- NOTE | 2019-09-01 13:20 | NUR ---
DECREASED FI02 TO .30 RN AWARE
--- NOTE | 2019-09-01 13:43 | NUR ---
ADMINISTERED SCHEDULED MEDS PER MD ORDER. PT IS LYING ON BED WITH EYES CLOSED COMFORTABLY, FLACC 0. RESPIRATION EVEN AND UNLABORED ON ETT TO VENT, SPO2 97%. NO ACUTE DISTRESS NOTED. TELE MONITOR ATTACHED.
--- NOTE | 2019-09-01 14:13 | NUR ---
DR JOHN AT BEDSIDE AND ORDER TO TITRATE LEVOPHED TO 9.99 MGC/MIN. TITRATED PER MD ORDER.
--- NOTE | 2019-09-01 14:55 | NUR ---
DECREASED LEVOPHED TO 8 MCG/MIN, BP 105/73, PULSE 7, SPO2 AT 95%. FLACC 0. NO ACUTE DISTRESS NOTED. TELE MONITOR ATTACHED.
--- NOTE | 2019-09-01 15:45 | NUR ---
WITH ASSIST FROM ANOTHER RN, REPOSITIONED PT AND OFF LOADED PRESSURE FROM BACK, LEGS AND ELBOWS WITH PILLOWS. PROVIDED HYGIENE CARE. PT TOLERATED WELL. NO ACUTE SIGNS OF DISTRESS NOTED. TELE MONITOR ATTACHED.
--- NOTE | 2019-09-01 15:53 | NUR ---
APTT IS 49.6 WITHIN THERAPEUTIC RANGE PER PHARMACY PROTOCOL, NO CHANGE. NOTIFIED DR MALIK AND WAS AWARE. WILL ORDER THE NEXT APTT DRAW IN 6 HOURS.
--- NOTE | 2019-09-01 16:19 | NUR ---
HUNG A NEW BAG OF FENTANYL AND CONTINUE DRIPPING AT 19.48 ML/HR.
--- NOTE | 2019-09-01 16:20 | NUR ---
DECREASED LEVOPHED TO 5 MCG/MIN, BP 112/67, PULSE 87, SPO2 AT 96%. FLACC 0. NO ACUTE DISTRESS NOTED. TELE MONITOR ATTACHED.
--- NOTE | 2019-09-01 17:05 | NUR ---
DECREASED LEVOPHED TO 3 MCG/MIN, BP 101/64, PULSE 78, SPO2 AT 95%. FLACC 0. NO ACUTE DISTRESS NOTED. TELE MONITOR ATTACHED.
--- NOTE | 2019-09-01 18:06 | NUR ---
CONTINUED TO MONITOR PT ON VENT WITH SETTINGS CHARTED BREATH SOUNDS PRESENT BILAT SXN PT WITH MIN AMT OFF WHITE SECS AMBU BAG BEDSIDE VENT PLUGGED INTO RED OUTLET
--- NOTE | 2019-09-01 18:06 | NUR ---
CHECKED OGT RESIDUAL AND RECEIVED < 3 ML. HUNG A NEW BOTTLE OF OGT FEEDING, VITAL 1.2 AND RUNNING AT 50 ML/HR AND H20 FLUSH 50 ML/Q4H. PT IS RESTING ON BED WITH EYES CLOSED. FLACC 0. RESPIRATION EVEN AND UNLABORED ON ETT TO VENT, SPO2 94%. NO ACUTE DISTRESS NOTED. TELE MONITOR ATTACHED.
--- NOTE | 2019-09-01 19:13 | NUR ---
ENDORSED PT AT BEDSIDE TO OFFICE RECEPTIONIST NURSE RAJ FOR CONTINUITY OF CARE. PT IS IN STABLE CONDITION. TELE MONITOR ATTACHED. SAFETY MEASURES IN PLACE.
--- NOTE | 2019-09-01 19:15 | NUR ---
RECEIVED BEDSIDE REPORT FROM AM SHIFT NURSE LINDA, PATIENT IS LYING SUPINE IN BED. NO DISTRESS NOTED. PATIENT RESTING WITH EYES CLOSED, SEDATED WITH RASS-3. ON ETT TO MECHANICAL VENTILATOR. TOLERATING VENT SETTINGS WELL ON ACVC MODE, FIO2- 30, VT-500, PEEP-6 AND RR-24. O2 SAT AT 94%. OGT IN PLACE, PATENT AND INTACT WITH ONGOING FEEDING OF VITAL AF 1.2 SYLVAIN AT A RATE OF 50ML/HR WITH 50ML Q4h WATER FLUSH. MILLER CATHETER IN PLACE, PATENT AND INTACT AND DRAINING YELLOW URINE WITH 400 ML CURRENTLY IN BAG. SKIN IS INTACT BUT NOTED WITH SMALL MULTIPLE SCABS ON RIGHT LOWER LEG AND MULTIPLE SMALL BRUISING ON LEFT UPPER EXTREMITY. IV ACCESS NOTED ON RIGHT AC 20 GAUGE RUNNING HEPARIN AT 13 ML/HR= 1300 UNIT/HR, RIGHT IJ TRIPLE LUMEN RUNNING LEVOPHED AT 2.81 ML/HR= 2.997 MCG/MIN, IVF AT 5 ML/HR, VERSED AT 7ML/HR, AMIODARONE 16.66 ML/HR= 0.5MG/MIN, DOBUTAMINE 29.25 ML/HR= 10 MCG/KG/MIN, FENTANYL 19.48 ML/HR= 1.998 MCG/KG/HR. BILATERAL SOFT WRIST RESTRAINTS NOTED. NO SKIN BREAKDOWN NOTED. BED LOCKED. BED IN LOW. SAFETY MEASURES IN PLACE. WILL CONTINUE TO MONITOR PATIENT CLOSELY.
--- NOTE | 2019-09-01 20:05 | NUR ---
RECEIVED PATIENT ON DOCUMENTED SETTINGS. VENT PLUGGED INTO RED OUTLET. BMV AT BEDSIDE. ETT SECURED AND INTACT. PT IS IN NO DISTRESS. WILL CONT TO MONITOR.
--- NOTE | 2019-09-01 20:05 | NUR ---
VAP ORAL CARE DONE. PATIENT OPENS EYES UPON SUCTIONING BUT CLOSES RIGHT AFTER. NO DISTRESS NOTED.
[2019-09-01] MEDS: ATORVASTATIN 20 MG TAB PO SCH (20:56)
--- NOTE | 2019-09-01 20:56 | NUR ---
SCHEDULED MEDICATIONS ADMINISTERED PER MD ORDER. OGT AUSCULTATED FOR POSITIVE PLACEMENT. NO RESIDUAL NOTED. PATIENT OPENS EYES AND NODS HEAD SLIGHTLY WHEN SPOKEN TO BUT CLOSES RIGHT AFTER. NO DISTRESS NOTED. WILL CONTINUE TO MONITOR PATIENT CLOSELY.
--- NOTE | 2019-09-01 21:00 | NUR ---
PATIENT NOTED WITH FREQUENT PVCS, BIGEMENY. MD NOTIFIED FOR EKG ORDER.
[2019-09-01] MEDS ORDERED: CALCIUM GLUCONATE 10% 1,000 MG in NACL 0.9% 50 ML IV SCH (21:05)
[2019-09-01] MEDS ORDERED: AMIODARONE 450 MG/9 ML VIAL IV ONE (21:51)
--- NOTE | 2019-09-01 22:10 | NUR ---
PATIENT RESTING WITH EYES CLOSED. RESPIRATIONS EVEN AND UNLABORED, TOLERATING VENT SETTINGS WELL. WILL CONTINUE TO MONITOR PATIENT CLOSELY.
--- NOTE | 2019-09-01 22:32 | NUR ---
Called Ryan pharmacist for calcium gluconate 1000mg, Ryan stated that he will calculate the calcium and albumin. ER stuart stated it is not enough vials; icu and pacu do not have the medications.
--- NOTE | 2019-09-01 22:44 | NUR ---
Ryan schafer called and stated that according to his calculation, calcium and albumin are on the normal range. Called resident [phone], no one answer the phone. Called APPLICATOR SPRAYER to let the RN know what Ryan schafer stated
[2019-09-02] VITALS (106 sets, daily range): BP systolic 97–137; BP diastolic 53–88
--- NOTE | 2019-09-02 | NUR ---
VAP ORAL CARE DONE. SUCTIONED PATIENT AT THIS TIME WITH MINIMAL AMOUNT OF SECRETIONS. EYE OPENING UPON SUCTIONING BUT CLOSES RIGHT AFTER. RASS-3.
[2019-09-02] MEDS: MIDAZOLAM MDV 100 MG in NACL 0.9% 80 ML IV PRN ×2 (01:02→16:49)
--- NOTE | 2019-09-02 01:25 | NUR ---
WITH NEW ORDERS TO TITRATE DOBUTAMINE TO 7 MCG THEN TO 5MCG IF SBP>90 AND HR >60 FOR 3 HOURS THEN TO 2 MCG IF SBP>90 AND HR >60 FOR 3 HOURS THEN TITRATE OFF. Addendum: 09/02/19 at 1402 by Sd Lea RN DOC TIME IS 1325
--- NOTE | 2019-09-02 01:30 | NUR ---
LINEN AND GOWN CHANGED. PATIENT CLEANED, DRIED AND MADE COMFORTABLE. PATIENT WAS OPENING EYES AND WOULD NOD BUT WOULD CLOSE EYES RIGHT AFTER. PATIENT HAS A RASS SCORE OF -3. NO DISTRESS NOTED. RESPIRATIONS EVEN AND UNLABORED.
--- NOTE | 2019-09-02 02:45 | NUR ---
PATIENT RESTING WITH EYES CLOSED. TOLERATING VENT SETTINGS WELL. PATIENT OPENS EYES WHEN NAME IS CALLED OUT BUT CLOSES RIGHT AFTER. WILL CONTINUE TO MONITOR PATIENT CLOSELY.
--- NOTE | 2019-09-02 04:10 | NUR ---
MORNING CARE AND VAP ORAL CARE DONE. NO DISTRESS NOTED. PATIENT SUCTIONED WITH MODERATED AMOUNT OF THICK WHITE SECRETIONS. O2 AT 95%.
[2019-09-02] MEDS: fentaNYL 1 MG in NACL 0.9% 80 ML IV PRN ×4 (04:24→21:02)
[2019-09-02] MEDS: PIPERACILLIN/TAZOBACTAM 2.25 GM in DEXTROSE 5% 50 ML IV SCH ×2 (04:53→13:28)
[2019-09-02] MEDS: HYDROCORTISONE NA SUCC 100 MG/2 ML VIAL IV SCH ×3 (04:53→20:57)
[2019-09-02 05:19] LABS: BASOPHILS % (AUTO) 0.2 % (0.0-2.0); HEMATOCRIT 33.9 % (36-52); HEMOGLOBIN 11.1 g/dL (12.0-18.0); LYMPHOCYTES # (AUTO) 0.5 K/uL (2.0-11.5); LYMPHOCYTES % (AUTO) 2.6 % (20.5-51.1); MEAN CORPUSCULAR HEMOGLOBIN 31 pg (27-31); MEAN CORPUSCULAR HGB CONC 33 g/dL (33-37); MEAN CORPUSCULAR VOLUME 95.1 fL (80-94); MONOCYTES # (AUTO) 1.8 K/uL (0.8-1.0); MONOCYTES % (AUTO) 9.6 % (1.7-9.3); NEUTROPHILS # (AUTO) 16.5 K/uL (1.8-7.7); NEUTROPHILS % (AUTO) 87.6 % (42.2-75.2); PLATELET COUNT (AUTO) 225 K/uL (140-450); RED BLOOD CELL COUNT(AUTO) 3.57 MIL/uL (4.20-6.10); RED CELL DISTRIBUTION WIDTH 17.3 % (11.6-13.7); WHITE BLOOD COUNT (AUTO) 18.8 K/uL (4.8-10.8)
[2019-09-02 05:35] LABS: PROTHROMBIN TIME 11.2 secs (10.8-13.4)
--- NOTE | 2019-09-02 05:39 | NUR ---
PTT OF 57.1 NOTED. WITHIN THERAPEUTIC LEVEL. NO CHANGE IN RATE FOR HEPARIN DRIP.
[2019-09-02 06:27] LABS: ALBUMIN 2.2 g/dL (3.4-5.0); ANION GAP 9.3 (8-16); CARBON DIOXIDE 30.7 mmol/L (21-32); CREATININE 3.1 mg/dL (0.6-1.3); MAGNESIUM 2.5 mg/dL (1.8-2.4); PHOSPHORUS 5.2 mg/dL (2.5-4.9); TOTAL BILIRUBIN 1.2 mg/dL (0.0-1.0)
[2019-09-02] MEDS: DOBUTamine 500 MG/D5W PREMIX 250 ML IV SCH ×2 (07:00→17:48)
--- NOTE | 2019-09-02 07:20 | NUR ---
ENDORSED TO AM SHIFT NURSE PARTH FOR CONTINUITY OF CARE. NO DISTRESS NOTED. PATIENT SEDATED WITH RASS SCORE OF -3. PATIENT TOLERATING VENT SETTINGS WELL. BED IN LOW, BED LOCKED. SAFETY MEASURES IN PLACE.
--- NOTE | 2019-09-02 07:21 | NUR ---
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 PT IN BED WITH EYES CLOSED. RASS-3. ON ETT TO VENT. SETTINGS ACVC MODE, FIO2- 30, VT-500, PEEP-6, RR-24. O2 SAT AT 95%. OGT PATENT AND INTACT. WITH FEEDING OF VITAL AF 1.2 SYLVAIN AT A RATE OF 50ML/HR FLUSH 50ML Q4h. IV ON RIGHT AC 20 GAUGE RUNNING HEPARIN AT 13 ML/HR= 1300 UNIT/HR, RIGHT IJ TRIPLE LUMEN RUNNING, IVF AT 5 ML/HR, VERSED AT 7ML/HR, AMIODARONE 16.66 ML/HR= 0.5MG/MIN, DOBUTAMINE 29.25 ML/HR= 10 MCG/KG/MIN, FENTANYL 19.48 ML/HR= 1.998 MCG/KG/HR. WITH MILLER CATHETER PATENT AND INTACT. DRAINING CLEAR YELLOW URINE. SKIN IS INTACT, WITH SMALL MULTIPLE SCABS ON RIGHT LOWER LEG AND MULTIPLE SMALL BRUISING ON LEFT UPPER EXTREMITY. WITH BILATERAL SOFT WRIST RESTRAINTS. BED IN LOW. SAFETY MEASURES IN PLACE. WILL CONTINUE TO MONITOR .
[2019-09-02] MEDS: ALBUTEROL SULFATE/IPRATROPIU 3 ML SOL IH SCH ×3 (07:28→19:50)
--- NOTE | 2019-09-02 07:31 | NUR ---
RECEIVED ON A [employer] R860 VENTILATOR PLUGGED INTO RED OUTLET TOLERATING WELL WITHOUT ADVERSE REACTIONS NOTED TO AN ENDOTRACHEAL TUBE #7.5 SECURED AT 26cm TEETH/GUMLINE WITH AN ANCHOR FAST CUFF PRESSURE CHECKED NOTED AMBU BAG AT BEDSIDE LOC AWAKENS WITH VERBAL COMMANDS AND STIMULI GOOD CHEST RISE NO RETURN UPON SUCTIONING AIRWAY PATENT
--- NOTE | 2019-09-02 09:20 | NUR ---
REPOSITIONED PT. ORAL CARE DONE. OPENS EYES TO NAME. RASS -3. NO DISTRESS NOTED
[2019-09-02] MEDS: FUROSEMIDE 40 MG/4 ML VIAL IVP SCH ×2 (09:39→20:57)
[2019-09-02] MEDS: ASPIRIN 81 MG TAB.CHEW PO SCH (09:39)
[2019-09-02] MEDS: PANTOPRAZOLE 40 MG INJ VIAL IVP SCH (09:39)
[2019-09-02] MEDS ORDERED: MINERAL OIL 135 ML ENEM RC PRN (11:00)
[2019-09-02] MEDS: SENNA 8.6 MG TAB PO SCH (11:24)
--- NOTE | 2019-09-02 11:30 | NUR ---
FLACC 0, NO RESPIRATORY DISTRESS NOTED. OPENS EYES WHEN CALLING NAME. RASS -3. WILL CONTINUE TO MONITOR
--- NOTE | 2019-09-02 11:41 | NUR ---
RESTING WELL NO EVIDENCE OF PULMONARY DISTRESS NOTED EQUAL CHEST RISE ENDOTRACHEAL SUCTION FOR SMALL THICK YELLOW WITH BLOOD TINGE (DARK RED) SECRETIONS AIRWAY PATENT
[2019-09-02] MEDS ORDERED: AMIODARONE 200 MG TAB NG SCH (12:00)
--- NOTE | 2019-09-02 13:11 | NUR ---
STABLE NO RESPIRATORY DISTRESS NOTED EQUAL CHEST RISE GOOD AERATION THROUGHOUT RIGHT SIDE INGA LML AIRWAY PATENT
--- NOTE | 2019-09-02 15:11 | NUR ---
SEEN AND EXAMINED BY DR. HERNANDEZ. PT IN STABLE CONDITION. RASS -3. NO RESPIRATORY DISTRESS
--- NOTE | 2019-09-02 16:15 | NUR ---
MINERAL OIL ENEMA GIVEN ORDERED FOR CONSTIPATION. PT TOLERATED WEL
--- NOTE | 2019-09-02 17:08 | NUR ---
SEDATED NO DISTRESS NOTED GOOD CHEST RISE ENDOTRACHEAL SUCTION FOR MODERATE THICK YELLOW WITH BLOOD STREAKED SECRETIONS AIRWAY PATENT
--- NOTE | 2019-09-02 18:30 | NUR ---
URINE SPECIMEN COLLECTED AND SENT TO LAB
[2019-09-02] MEDS: CEFEPIME 1,000 MG in DEXTROSE 5% 50 ML IV SCH (18:37)
[2019-09-02 18:42] LABS: APPEARANCE,URINE CLEAR (CLEAR); BILIRUBIN,URINE NEGATIVE (NEGATIVE); BLOOD, URINE 2+ (NEGATIVE); COLOR,URINE YELLOW (YELLOW); LEUKOCYTE ESTERASE ,URINE NEGATIVE (NEGATIVE); NITRITE, URINE NEGATIVE (NEGATIVE); PH,URINE 5.5 (5.0-9.0); UGLUCOSE NEGATIVE (NEGATIVE)
[2019-09-02 18:58] LABS: WBC,URINE 0-5 /HPF (0-5)
[2019-09-02 18:59] LABS: COARSE GRANULAR CASTS,URINE 0-10 /LPF (None Seen); URIC ACID CRYSTALS,URINE >100 /HPF (None Seen)
[2019-09-02] MEDS: hePARIN / DEXT 5% PREMIX 250 ML IV SCH (19:01)
--- NOTE | 2019-09-02 19:05 | NUR ---
ENDORSED TO REPAIR ORDER CLERK NURSE FOR CONTINUITY OF CARE. PT IN STABLE CONDITION
--- NOTE | 2019-09-02 19:06 | NUR ---
RECEIVED BEDSIDE REPORT FROM AM SHIFT NURSE PARTH, PATIENT IS LYING SUPINE IN BED. NO DISTRESS NOTED. PATIENT RESTING WITH EYES CLOSED, SEDATED WITH RASS SCORE -3. DRY WEIGHT OF 97.5 KG. ON ETT TO MECHANICAL VENTILATOR. TOLERATING VENT SETTINGS WELL ON ACVC MODE, FIO2- 30, VT-500, PEEP-6 AND RR-24. O2 SAT AT 100%. OGT IN PLACE, PATENT AND INTACT WITH ONGOING FEEDING OF VITAL AF 1.2 SYLVAIN AT A RATE OF 50ML/HR WITH 50ML Q4h WATER FLUSH. MILLER CATHETER IN PLACE, PATENT AND INTACT AND DRAINING YELLOW URINE WITH 200 ML CURRENTLY IN BAG. SKIN IS INTACT BUT NOTED WITH SMALL MULTIPLE SCABS ON RIGHT LOWER LEG AND MULTIPLE SMALL BRUISING ON LEFT UPPER EXTREMITY. IV ACCESS NOTED ON RIGHT AC 20 GAUGE SALINE LOCK, LEFT FOREARM 18 GAUGE SALINE LOCK, AND RIGHT IJ TRIPLE LUMEN RUNNING HEPARIN AT 13 ML/HR= 1300 UNIT/HR, IVF AT 5 ML/HR, VERSED AT 7ML/HR, DOBUTAMINE 14.62 ML/HR= 4.998 MCG/KG/MIN, FENTANYL 19.48 ML/HR= 1.998 MCG/KG/HR. BILATERAL SOFT WRIST RESTRAINTS NOTED. NO SKIN BREAKDOWN OR INJURY NOTED. BED LOCKED. BED IN LOW. SAFETY MEASURES IN PLACE. WILL CONTINUE TO MONITOR PATIENT CLOSELY.
--- NOTE | 2019-09-02 20:05 | NUR ---
RECEIVED PT ETT TO MECHANICAL VENTILATOR AT DOCUMENTED SETTINGS. VENT CHECK DONE. VENT PLUGGED INTO RED OUTLET WITH WHEELS LOCKED. VENT ALARMS ON AND AUDIBLE. BVM AT [facility]. AIRWAY SECURE AND PATENT. SUCTIONED SMALL AMOUNT OF THICK, YELLOW SECRETIONS. SPUTUM SAMPLE OBTAINED AND SENT TO LAB. SCHEDULED BREATHING TREATMENT ADMINISTERED. TOLERATED TX WELL WITHOUT ADVERSE SIDE EFFECTS. ORAL VAP CARE DONE. NO ACUTE RESPIRATORY DISTRESS NOTED AT THIS TIME. WILL CONTINUE TO MONITOR.
[2019-09-02] MEDS: LINEZOLID 600MG PREMIX 300 ML IV SCH (20:56)
[2019-09-02] MEDS: ATORVASTATIN 20 MG TAB PO SCH (20:57)
[2019-09-02] MEDS: AMIODARONE 200 MG TAB NG SCH (20:58)
--- NOTE | 2019-09-02 21:00 | NUR ---
SCHEDULED MEDICATIONS ADMINISTERED. OGT AUSCULTATED FOR POSITIVE PLACEMENT. NO RESIDUAL NOTED. TOLERATING CONTINUOUS FEEDING WELL. PATIENT IS ABLE TO OPEN EYES WHEN NAME IS CALLED OUT BUT CLOSES 5 SECONDS LATER. VAP ORAL CARE DONE. NO DISTRESS NOTED.
--- NOTE | 2019-09-02 23:05 | NUR ---
PATIENT SUCTIONED AT THIS TIME. NOTED WITH THICK WHITISH SECRETIONS. EYE OPENING NOTED BUT NO EYE CONTACT. NO DISTRESS NOTED, O2 SATURATION AT 100%.
[2019-09-03] VITALS (88 sets, daily range): BP systolic 101–134; BP diastolic 39–89
--- NOTE | 2019-09-03 00:30 | NUR ---
VAP ORAL CARE DONE. PATIENT IS ABLE TO OPEN MOUTH SLIGHTLY BUT FALLS BACK ASLEEP. RESPIRATIONS EVEN AND UNLABORED.
[2019-09-03] MEDS ORDERED: LACTULOSE 20 GM/30 ML UDC PO SCH (00:55)
--- NOTE | 2019-09-03 02:17 | NUR ---
PATIENT RESTING WITH EYES CLOSED. RESPIRATIONS EVEN AND UNLABORED, TOLERATING MECHANICAL VENTILATION WELL. NO DISTRESS NOTED. PATIENT SEDATED WITH A RASS SCORE OF -3. WILL CONTINUE TO MONITOR PATIENT CLOSELY.
[2019-09-03] MEDS: fentaNYL 1 MG in NACL 0.9% 80 ML IV PRN ×2 (02:32→08:29)
--- NOTE | 2019-09-03 04:26 | NUR ---
VAP ORAL CARE DONE. MORNING CARE DONE, PATIENT CLEANED, DRIED AND MADE COMFORTABLE. NO DISTRESS NOTED. EYE OPENING BUT NO EYE CONTACT NOTED. WILL CONTINUE TO MONITOR PATIENT CLOSELY.
--- NOTE | 2019-09-03 04:55 | NUR ---
LACTULOSE ADMINISTERED PER MD ORDER FOR CONSTIPATION.
[2019-09-03 06:51] LABS: BASOPHILS % (AUTO) 0.3 % (0.0-2.0); HEMATOCRIT 33.5 % (36-52); HEMOGLOBIN 10.9 g/dL (12.0-18.0); LYMPHOCYTES # (AUTO) 0.6 K/uL (2.0-11.5); LYMPHOCYTES % (AUTO) 3.6 % (20.5-51.1); MEAN CORPUSCULAR HEMOGLOBIN 31 pg (27-31); MEAN CORPUSCULAR HGB CONC 33 g/dL (33-37); MEAN CORPUSCULAR VOLUME 94.8 fL (80-94); MONOCYTES # (AUTO) 1.5 K/uL (0.8-1.0); MONOCYTES % (AUTO) 9.2 % (1.7-9.3); NEUTROPHILS # (AUTO) 14.3 K/uL (1.8-7.7); NEUTROPHILS % (AUTO) 86.9 % (42.2-75.2); PLATELET COUNT (AUTO) 247 K/uL (140-450); RED BLOOD CELL COUNT(AUTO) 3.53 MIL/uL (4.20-6.10); RED CELL DISTRIBUTION WIDTH 17.3 % (11.6-13.7); WHITE BLOOD COUNT (AUTO) 16.5 K/uL (4.8-10.8)
[2019-09-03 07:07] LABS: ALBUMIN 2.1 g/dL (3.4-5.0); ANION GAP 12.6 (8-16); CARBON DIOXIDE 30.2 mmol/L (21-32); CREATININE 2.6 mg/dL (0.6-1.3); MAGNESIUM 2.4 mg/dL (1.8-2.4); PHOSPHORUS 4.2 mg/dL (2.5-4.9); POTASSIUM 3.8 mmol/L (3.5-5.1)
--- NOTE | 2019-09-03 07:13 | NUR ---
ENDORSED PATIENT TO AM SHIFT CHARGE NURSE MAYNOR FOR CONTINUITY OF CARE. PATIENT IS SEDATED AT RASS -3. ETT TO VENT, TOLERATING VENT SETTINGS WELL. NO DISTRESS NOTED. BED LOCKED, BED IN LOW, SAFETY MEASURES IN PLACE.
[2019-09-03] MEDS: ALBUTEROL SULFATE/IPRATROPIU 3 ML SOL IH SCH ×3 (07:22→19:02)
--- NOTE | 2019-09-03 07:23 | NUR ---
RECEIVED ON A [employer] R860 VENTILATOR PLUGGED INTO RED OUTLET TOLERATING WELL WITHOUT ADVERSE REACTIONS NOTED TO A AN ENDOTRACHEAL TUBE #7.5 SECURED AT 26cm WITH AN ANCHOR FAST CUFF PRESSURE CHECKED NOTED AMBU BAG AT BEDSIDE SEDATED RESPONSIVE TO RELATIONSHIP MANAGEMENT LEAD VERBAL COMMANDS AND/OR STIMULUS GOOD CHEST RISE AIRWAY PATENT
[2019-09-03 07:47] LABS: PROTHROMBIN TIME 11.9 secs (10.8-13.4)
[2019-09-03] MEDS: MIDAZOLAM MDV 100 MG in NACL 0.9% 80 ML IV PRN (08:21)
[2019-09-03] MEDS: LINEZOLID 600MG PREMIX 300 ML IV SCH ×2 (08:29→21:00)
[2019-09-03] MEDS: DOCUSATE 100 MG/10 ML UDC GT SCH (08:36)
[2019-09-03] MEDS: HYDROCORTISONE NA SUCC 100 MG/2 ML VIAL IV SCH ×2 (08:37→21:00)
[2019-09-03] MEDS: PANTOPRAZOLE 40 MG INJ VIAL IVP SCH (08:37)
[2019-09-03] MEDS: AMIODARONE 200 MG TAB NG SCH ×2 (08:38→21:00)
[2019-09-03] MEDS: FUROSEMIDE 40 MG/4 ML VIAL IVP SCH ×2 (08:38→22:32)
[2019-09-03] MEDS: SENNA 8.6 MG TAB PO SCH (08:38)
[2019-09-03] MEDS: ASPIRIN 81 MG TAB.CHEW PO SCH (08:38)
--- NOTE | 2019-09-03 09:36 | NUR ---
RESTING COMFORTABLY NO EVIDENCE OF PULMONARY DISTRESS NOTED GOOD CHEST RISE AND AERATION THROUGHOUT BILATERAL LUNG SMITH AIRWAY PATENT SATURATION 98% ON FIO2 OF 30% TITRATED FIO2 TO 28% MAYNOR/RN NOTIFIED
--- NOTE | 2019-09-03 10:00 | NUR ---
REPOSITION SKIN CARE GIVEN.MILLER DRAN MARYBEL URINE WITH SEDIMENT
--- NOTE | 2019-09-03 10:20 | NUR ---
SEEN BY DR THORNE WOULD LIKE HIM TO HAVE TRY WEANING OFF FROM VENTILATOR.
--- NOTE | 2019-09-03 11:45 | NUR ---
HOLD FENTANYL AND VERSED IV DRIP FOR SEDATION VACATION PETER THE RT AT BED SIDE.
--- NOTE | 2019-09-03 11:45 | NUR ---
SEDATION VACATION PATIENT UNABLE TO GENERATE SpVt AT THIS TIME FOR WEANING SOLE BUFFER TO ATTEMPT AT A LATER TIME
[2019-09-03] MEDS ORDERED: MORPHINE SULFATE 100 MG in NACL 0.9% 90 ML IV PRN (11:50)
--- NOTE | 2019-09-03 13:31 | NUR ---
LOC AWAKE GOOD CHEST RISE ENDOTRACHEAL SUCTION FOR LARGE THICK PALE YELLOW SECRETIONS AIRWAY PATENT CHANGED MODE TO SBT AT THIS TIME FOR WEANING CRIME ANALYST TO MONITOR
--- NOTE | 2019-09-03 13:57 | NUR ---
DR. FUENTES AT BEDSIDE ORDER RECEIVED,
[2019-09-03] MEDS ORDERED: LOVENOX 1MG/KG Q24H SUBQ SCH (14:00)
[2019-09-03] MEDS ORDERED: ENOXAPARIN 120 MG/0.8 ML SYR SUBQ SCH (14:01)
--- NOTE | 2019-09-03 14:37 | NUR ---
09/03/19 RD FOLLOW UP COMPLETED PLEASE REFER TO NUTRITION ASSESSMENT UNDER CARE ACTIVITY FOR ESTIMATED NUTRITIONAL NEEDS. 1. CONTINUE WITH VITAL 1.2 AF @50 ML/HR X 24 HR WITH GORDY BID -THIS WILL PROVIDE 1200 ML OF VOLUME, 1440 KCAL AND 90 GM OF PROTEIN 2. CONTINUE FREE WATER FLUSH OF 50 ML Q4H PER MD 3. RECOMMEND SWALLOW EVALUATION IF PT IS EXTUBATED AND STABLE FOR PO DIET 4. RD TO FOLLOW-UP 2-3 DAYS, HIGH RISK ASHELY FARRAR RD
--- NOTE | 2019-09-03 15:21 | NUR ---
COMPLETED SBT TRIALS X 2 HOURS TOLERATED WELL WITHOUT COMPLICATIONS NOTED
--- NOTE | 2019-09-03 15:22 | NUR ---
TOLERATING SBT TRIALS WITHOUT COMPLICATIONS GOOD CHEST RISE ENDOTRACHEAL SUCTION FOR LARGE THICK PALE YELLOW SECRETIONS AIRWAY PATENT
--- NOTE | 2019-09-03 17:30 | NUR ---
NO EVIDENCE OF RESPIRATORY DISTRESS NOTED GOOD CHEST RISE ENDOTRACHEAL SUCTION FOR SMALL THIN PALE YELLOW SECRETIONS AIRWAY PATENT TITRATED RATE TO 20 BPM (AM ABG) MAYNOR/RN NOTIFIED
--- NOTE | 2019-09-03 17:45 | NUR ---
MORPHINE IV DRIP START AT 1MG/HR.
--- NOTE | 2019-09-03 18:07 | NUR ---
PT HAS BLEEDING FRON IV SITE AND CETRAL LINE SITE DR. RAJAN NOTIFIED ORDER TO HOLD THE LOVENOX AT THIS TIME.
[2019-09-03] MEDS: CEFEPIME 1,000 MG in DEXTROSE 5% 50 ML IV SCH (18:18)
--- NOTE | 2019-09-03 18:20 | NUR ---
PT. IS AWAKE GETTING RESTLESS INCREASE MS. TO 2MG/HR.
--- NOTE | 2019-09-03 19:30 | NUR ---
PT. V/S WITH IN NORMAL LIMIT REPORT GIVE TO FLAKITA ALCALA REGISTER NURSE.
[2019-09-03] MEDS: ATORVASTATIN 20 MG TAB PO SCH (22:28)
[2019-09-04] VITALS (69 sets, daily range): BP systolic 93–151; BP diastolic 45–117
[2019-09-04 06:16] LABS: HEMATOCRIT 33.8 % (36-52); HEMOGLOBIN 11.1 g/dL (12.0-18.0); LYMPHOCYTES # (AUTO) 0.6 K/uL (2.0-11.5); LYMPHOCYTES % (AUTO) 4.1 % (20.5-51.1); MEAN CORPUSCULAR HEMOGLOBIN 31 pg (27-31); MEAN CORPUSCULAR HGB CONC 33 g/dL (33-37); MONOCYTES # (AUTO) 1.2 K/uL (0.8-1.0); NEUTROPHILS # (AUTO) 13.1 K/uL (1.8-7.7); NEUTROPHILS % (AUTO) 87.9 % (42.2-75.2); PLATELET COUNT (AUTO) 268 K/uL (140-450); RED BLOOD CELL COUNT(AUTO) 3.56 MIL/uL (4.20-6.10); RED CELL DISTRIBUTION WIDTH 17.6 % (11.6-13.7); WHITE BLOOD COUNT (AUTO) 14.9 K/uL (4.8-10.8)
[2019-09-04 06:22] LABS: ANION GAP 9.9 (8-16); CARBON DIOXIDE 33.8 mmol/L (21-32); CREATININE 2.4 mg/dL (0.6-1.3); POTASSIUM 3.7 mmol/L (3.5-5.1)
[2019-09-04 06:24] LABS: MAGNESIUM 2.2 mg/dL (1.8-2.4)
[2019-09-04] MEDS: ALBUTEROL SULFATE/IPRATROPIU 3 ML SOL IH SCH ×3 (07:05→18:54)
--- NOTE | 2019-09-04 07:05 | NUR ---
RECEIVED PT ON SETTINGS OF AC/VC 20,500,+5,28% VENT IS PLUGGED INTO RED OUTLET, ALARMS ARE ON AND FUNCTIONING, AMBU BAG AT BEDSIDE. PT SHOWS NO SIGN OF DISTRESS AT THIS TIME. WILL CONTINUE TO MONITOR.
--- NOTE | 2019-09-04 07:30 | NUR ---
RECEIVE FROM [place] RT REGISTER NURSE. PT IS AWAKE A LITTLE RESTLESS . SKIN DRY WARM TO TOUCH. EET TO VENT , ON MRPHINE IV DRIP AND VERSED IV DRIP. OG TUBE FEEDING IN PROGRESS., MILLER CATH DRAIN MARYBEL URINE .
[2019-09-04] MEDS ORDERED: CLINICAL MONITORING MC SCH (09:00)
[2019-09-04] MEDS: AMIODARONE 200 MG TAB NG SCH ×2 (09:00→20:16)
[2019-09-04] MEDS: PANTOPRAZOLE 40 MG INJ VIAL IVP SCH (10:09)
[2019-09-04] MEDS: HYDROCORTISONE NA SUCC 100 MG/2 ML VIAL IV SCH ×2 (10:09→20:17)
[2019-09-04] MEDS: ASPIRIN 81 MG TAB.CHEW PO SCH (10:10)
[2019-09-04] MEDS: DOCUSATE 100 MG/10 ML UDC GT SCH (10:10)
[2019-09-04] MEDS: FUROSEMIDE 40 MG/4 ML VIAL IVP SCH ×2 (10:10→20:17)
[2019-09-04] MEDS: SENNA 8.6 MG TAB PO SCH (10:11)
[2019-09-04] MEDS: LINEZOLID 600MG PREMIX 300 ML IV SCH ×2 (10:14→21:57)
[2019-09-04] MEDS: ENOXAPARIN 120 MG/0.8 ML SYR SUBQ SCH ×2 (10:16→21:00)
--- NOTE | 2019-09-04 10:30 | NUR ---
SEEN BY MATI WOOD AT BED SIDE, ORDERED TO STOP SEDATION FOR SEDATION VACATION AND CHANGED VENT SETTING TO C PAP 5/10 28% FIO2 AND TO DRAW ABG AFTER ONE HOUR.
--- NOTE | 2019-09-04 10:30 | NUR ---
PT IS CURRENTLY ON CPAP AND TOLERATING, WILL CONTINUE TO MONITOR.
--- NOTE | 2019-09-04 13:05 | NUR ---
EXTUBATED PT PER DR THORNE, VERBAL ORDER. PT IS CURRENTLY ON 2L SPO2 OF 98% PT TOLERATED EXTUBATION AND IS IN NO DISTRESS AT THIS TIME
--- NOTE | 2019-09-04 14:00 | NUR ---
REPOSITION VITAL SIGN WITH IN NORMAL LIMIT O2 SAT 955 with o22l/nc.
--- NOTE | 2019-09-04 16:00 | NUR ---
INCONTINENT LARGE SOFT BLACK BM.
[2019-09-04] MEDS ORDERED: DEXT 5% / NACL 0.9% 500 ML IV SCH (18:40)
--- NOTE | 2019-09-04 19:00 | NUR ---
RECEIVED REPORT FROM AM SHIFT. PATIENT SEEN AND ASSESSED. PATIENT IN IN NO APPARENT RESPIRATORY DISTRESS AT THIS TIME: RR 20, HR 94, SPO2 97% ON NASAL CANNULA, AND COARSE BILATERAL BREATH SOUNDS. BVM AT BEDSIDE AND HOB > 30 DEGREES. HHN TX GIVEN ORDERED AND PATIENT TOLERATED WELL WITH NO ADVERSE REACTION. PATIENT WAS INFORMED TO CALL FOR HHN PRN TX WHEN EXPERIENCING SOB. WILL CONTINUE TO MONITOR PATIENT
--- NOTE | 2019-09-04 19:10 | NUR ---
INCONTINENT OF BLACK LOOSE BM. .
--- NOTE | 2019-09-04 19:13 | NUR ---
PT. AWAKE ALERT ORIENTED X3 STARTED TO HAVE SOME ICE SHIP. REPORT TO TARA ALCALA AT BEDSIDE,
[2019-09-04] MEDS: CEFEPIME 1,000 MG in DEXTROSE 5% 50 ML IV SCH (19:26)
--- NOTE | 2019-09-04 19:30 | NUR ---
RECEIVED CHANGE OF SHIFT REPORT FROM DAY SHIFT NURSE. PT IS AWAKE AND ALERT. A&OX4. GCS=15. ABLE TO MOVE ALL FOUR EXTREMITIES. HOWEVER, HE HAS MUSCLE WEAKNESS. PT IS ABLE TO FOLLOW SIMPLE COMMANDS. EYES PERRL. 3MM. PT HAS RIJ TRIPLE LUMEN THAT IS ASYMPTOMATIC, PATENT AND INTACT. NO DRIPS RUNNING. SKIN INTACT. PT ON O2 VIA NC AT 2LPM. O2 SAT WITHIN NORMAL LIMITS. PT HAS CLEAR LUNG SOUNDS THROUGHOUT W/ EQUAL RISE AND FALL OF CHEST. S1S2 HEARD. +2 RADIAL PULSES, CAP REFILL <3 SECONDS. MILLER CATHETER NOTED. PT HAS 20G PIV OF LEFT FOREARM THAT IS REDDENED AND UNABLE TO FLUSH. WILL D/C PIV. PT REPORTS NO PAIN NOR DISCOMFORT. BED IS LOCKED IN SEMI FOWLERS POSITION. CALL LIGHT WITHIN REACH. WILL CONTINUE TO MONITOR.
[2019-09-04] MEDS: ATORVASTATIN 20 MG TAB PO SCH (20:16)
--- NOTE | 2019-09-04 20:30 | NUR ---
D/C 20 PIV. CATHETER IS INTACT. PT HAS DEFECATED ON CHUX W/ SOFT SEMI FORMED BLACK STOOLS. IMMEDIATELY CLEANED UP PT AND CHANGED LINENS. ADMINISTERED 2100 MEDICATIONS. PT TOLERATED WELL, ABLE TO SWALLOW.
--- NOTE | 2019-09-04 22:00 | NUR ---
PT HAS EYES CLOSE APPEARING TO BE RESTING. PT AROUSABLE TO VOICE. NO DISTRESS NOTED. HAD UO OF 1700. YELLOW URINE W/ SEDIMENTS NOTED. ENVIRONMENT FREE OF CLUTTER. BED IS LOCKED IN LOW POSITION. WILL CONTINUE TO MONITOR.
[2019-09-05] VITALS (8 sets, daily range): BP systolic 98–122; BP diastolic 63–74
--- NOTE | 2019-09-05 | NUR ---
PT HAS EYES CLOSED APPEARING TO BE RESTING. AROUSABLE TO VOICE. NO APPARENT DISTRESS NOTED. SR ON MONITOR. HOB 30 DEGREES. BED IS LOCKED. LIFESAVING EQUIPMENT PLUGGED INTO RED SOCKETS. ENVIRONMENT FREE OF CLUTTER. WILL CONTINUE TO MONITOR AT THIS TIME.
--- NOTE | 2019-09-05 02:44 | NUR ---
CHECKED IN ON PT. PT SEEN COUGHING. O2 SATS < 90, SUCTIONED PT W/ SATURATION GOING BACK UP ABOVE 90. GASTRIC RESIDUALS <10 ML. INCREASED TUBE FEEDING TO 40 ML/HR. SR ON MONITOR. TEMPERATURE 97.1 TEMPORAL.
--- NOTE | 2019-09-05 04:30 | NUR ---
PT AWAKE AT THIS TIME. PT HAD BOWEL MOVEMENT, BLACK SEMI FORMED STOOLS. PT WAS CLEANED, LINENS CHANGED. PT HAD 3 CUPS OF WATER AFTER CLEANED. PT IS SR ON MONITOR. TEMPERATURE WAS 97.1 TEMPORAL. BED IS LOCKED, HOB 30 DEGREES. WILL CONTINUE TO MONITOR AT THIS TIME.
[2019-09-05] MEDS: ALBUTEROL SULFATE/IPRATROPIU 3 ML SOL IH SCH ×2 (06:00→13:39)
[2019-09-05 06:27] LABS: BASOPHILS % (AUTO) 0.2 % (0.0-2.0); EOSINOPHILS % (AUTO) 0.1 % (0.0-4.0); HEMATOCRIT 33.5 % (36-52); HEMOGLOBIN 10.9 g/dL (12.0-18.0); LYMPHOCYTES # (AUTO) 0.9 K/uL (2.0-11.5); LYMPHOCYTES % (AUTO) 6.3 % (20.5-51.1); MEAN CORPUSCULAR HEMOGLOBIN 31 pg (27-31); MEAN CORPUSCULAR HGB CONC 33 g/dL (33-37); MEAN CORPUSCULAR VOLUME 95.2 fL (80-94); MONOCYTES # (AUTO) 1.3 K/uL (0.8-1.0); MONOCYTES % (AUTO) 9.9 % (1.7-9.3); NEUTROPHILS # (AUTO) 11.4 K/uL (1.8-7.7); NEUTROPHILS % (AUTO) 83.5 % (42.2-75.2); PLATELET COUNT (AUTO) 246 K/uL (140-450); RED BLOOD CELL COUNT(AUTO) 3.52 MIL/uL (4.20-6.10); RED CELL DISTRIBUTION WIDTH 17.9 % (11.6-13.7); WHITE BLOOD COUNT (AUTO) 13.6 K/uL (4.8-10.8)
--- NOTE | 2019-09-05 06:40 | NUR ---
RECEIVED PT TRANSFER FROM ICU. AWAKE,ALERT AND ORIENTED X4. ON TELE MONITOR. O2 2L NC. O2 SAT 97%. WITH RT IJ TRIPLE LUMEN CENTRAL LINE. HL. MILLER CATH IN PLACED. DRAINING TO CLEAR YELLOW URINE. WITH BRUISES ON LT ARM AND RT ARM. SOME SMALL SCABS OB BOTH LOWER LEGS. BED ON LOW POSITION. SIDE RAILS UP X2. CALL LIGHT WITHIN EASY REACH. VITLA SIGNS TAKEN AND STABLE. WILL CONTINUE TO MONITOR ND ENDORSE TO AM NURSE.
--- NOTE | 2019-09-05 06:43 | NUR ---
PT TRANSFERRED TO 122B. REPORT GIVEN TO TELEMETRY NURSE TO ENSURE CONTINUITY OF CARE.
[2019-09-05 06:56] LABS: ANION GAP 8.9 (8-16); CARBON DIOXIDE 36.5 mmol/L (21-32); POTASSIUM 3.4 mmol/L (3.5-5.1)
[2019-09-05 07:15] LABS: MAGNESIUM 2.1 mg/dL (1.8-2.4); PHOSPHORUS 4.3 mg/dL (2.5-4.9)
--- NOTE | 2019-09-05 07:28 | NUR ---
ENDORSED PT IN STABLE CONDITION TO AM NURSE FOR CONTINUITY OF CARE.
--- NOTE | 2019-09-05 07:33 | NUR ---
RECEIVED BEDSIDE REPORT FROM NIGHTSHIFT NURSE. PT RESTING IN BED. ABLE TO MAKE NEEDS KNOWN. RESPIRATIONS EVEN AND UNLABORED WITH NO SOB OR RESPIRATORY DISTRESS. SKIN WARM AND DRY TO TOUCH. RIGHT IJ TRIPLE LUMEN IS CLEAN, DRY, AND INTACT. SAFETY MEASURES IN PLACE. WILL CONTINUE TO MONITOR
[2019-09-05] MEDS ORDERED: CLINICAL MONITORING MC PRN (07:40)
--- NOTE | 2019-09-05 08:40 | NUR ---
NO AM TX GIVEN PT WAS TRANSFERED OFF UNIT DURING THIS TIME
[2019-09-05] MEDS: ENOXAPARIN 120 MG/0.8 ML SYR SUBQ SCH (09:39)
[2019-09-05] MEDS: LINEZOLID 600MG PREMIX 300 ML IV SCH ×2 (09:52→20:55)
[2019-09-05] MEDS: HYDROCORTISONE NA SUCC 100 MG/2 ML VIAL IV SCH ×2 (09:54→20:55)
--- NOTE | 2019-09-05 09:54 | NUR ---
ADMINISTERED SCHED MED PRESCRIBED PER MD ORDER. MEDICATION EDUCATION PERFORMED. PT VERBALIZED UNDERSTANDING. SAFETY MEASURES IN PLACE. WILL CONTINUE TO MONITOR
[2019-09-05] MEDS: ASPIRIN 81 MG TAB.CHEW PO SCH (09:55)
[2019-09-05] MEDS: AMIODARONE 200 MG TAB NG SCH ×2 (09:55→20:54)
[2019-09-05] MEDS: SENNA 8.6 MG TAB PO SCH (09:55)
[2019-09-05] MEDS: PANTOPRAZOLE 40 MG INJ VIAL IVP SCH (09:56)
[2019-09-05] MEDS: FUROSEMIDE 40 MG/4 ML VIAL IVP SCH (09:58)
[2019-09-05] MEDS: DOCUSATE 100 MG/10 ML UDC GT SCH (09:58)
--- NOTE | 2019-09-05 11:03 | NUR ---
* ST PVE NOTE * Swallow evaluation order received for pt s/p extubation 09/04/19 @ 13:[address] protocol recommends pt remain NPO at least 24 hours s/p extubation prior to completing swallow evaluation and/or beginning any PO intake at this time to avoid increased risk for aspiration. Thus swallow evaluation will be carried over to next day if pt's condition allows. PVE
--- NOTE | 2019-09-05 11:15 | NUR ---
HOURLY ROUNDING. PT RESTING IN BED. ABLE TO MAKE NEEDS KNOWN. RESPIRATIONS EVEN AND UNLABORED WITH NO SOB OR RESPIRATORY DISTRESS. PT HAD NASAL CANNULA TO THE SIDE OF HIS NOSE. EDUCATED PT ON IMPORTANCE OF KEEPING NC IN NARES. PT VERBALIZED UNDERSTANDING. SAFETY MEASURES IN PLACE. WILL CONTINUE TO MONITOR
--- NOTE | 2019-09-05 12:45 | NUR ---
PT CALLED AND SAID THAT HE SPILLED WATER OVER HIMSELF AND NEEDS HELP GETTING CLEANED UP. SAFETY MEASURES IN PLACE. WILL CONTINUE TO MONITOR
--- NOTE | 2019-09-05 15:45 | NUR ---
PT CENTRAL LINE DRESSING WAS SOILED WITH BLOOD. DRESSING CHANGED USING STERILE TECHNIQUE. SAFETY MEASURES IN PLACE. WILL CONTINUE TO MONITOR
[2019-09-05] MEDS ORDERED: KCL 20 MEQ/WATER INJ PREMIX 100 ML IV ONE (16:55)
--- NOTE | 2019-09-05 17:20 | NUR ---
ADMINISTERED SCHED MED PRESCRIBED PER MD ORDER. MEDICATION EDUCATION PERFORMED. PT VERBALIZED UNDERSTANDING. SAFETY MEASURES IN PLACE. WILL CONTINUE TO MONITOR
[2019-09-05] MEDS: CEFEPIME 1,000 MG in DEXTROSE 5% 50 ML IV SCH (18:16)
--- NOTE | 2019-09-05 18:16 | NUR ---
ADMINISTERED SCHED MED PRESCRIBED PER MD ORDER. MEDICATION EDUCATION PERFORMED. PT VERBALIZED UNDERSTANDING. SAFETY MEASURES IN PLACE. WILL CONTINUE TO MONITOR
--- NOTE | 2019-09-05 19:20 | NUR ---
ENDORSED AT BEDSIDE. PT IS STABLE
--- NOTE | 2019-09-05 19:21 | NUR ---
RECEIVED BEDSIDE REPORT FROM DAY RN. PT IS SLEEPING COMFORTABLY IN BED WITH EYES CLOSED. CHEST RISE AND FALL NOTED.RESPIRATIONS ARE EQUAL AND UNLABORED ON 2L O2 VIA NC. SKIN IS INTACT HAS A BRUISE ON L ARM. PT HAS A RIJ TRIPLE LUMEN DRESSING IS VISIBLY SOILED WITH BLOOD PER RN DRESSING WAS CHANGED ABOUT TWICE DURING SHIFT AND MD IS AWARE. WILL CHANGE DRESSING. IVF TO TKO. PT WITH NON PRODUCTIVE COUGH. MILLER CATH IS DRAINING YELLOW URINE. HAS PITTING EDEMA ON R HAND AND BLE. CALL LIGHT IS WITHIN REACH. WILL CONTINUE TO MONITOR.
[2019-09-05] MEDS: ATORVASTATIN 20 MG TAB PO SCH (20:54)
--- NOTE | 2019-09-05 20:55 | NUR ---
PT IS AAOX4. VSS. PT DENIES PAIN. RESPIRATIONS ARE EQUAL AND UNLABORED ON 2L O2 VIA NC. IVÁN MEDICATIONS GIVEN EPER ORDERS. CENTRAL LINE DRESSING CHANGED D/T SOILED. PT TOLERATED WELL. GAVE PATIENT CHICKEN BROTH PER REQUEST. PT SITTING UP IN BED DRINKING BROTH. NO S/S OF DISTRESS. WILL CONTINUE TO MONITOR.
--- NOTE | 2019-09-05 22:30 | NUR ---
PT IS SLEEPING COMFORTABLY IN BED WITH EYES CLOSED. CHEST RISE AND FALL NOTED. NO S/S OF DISTRESS. CALL LIGHT IS WITHIN REACH.
[2019-09-06] VITALS: BP 111/68
--- NOTE | 2019-09-06 | NUR ---
PT SLEEPING COMFORTABLY IN BED WITH EYES CLOSED EASILY AROUSABLE. VSS. DENIES ANY PAIN. ALL NEEDS MET AT THIS TIME. CALL LIGHT IS WITHIN REACH. WILL CONTINUE TO MONITOR.
--- NOTE | 2019-09-06 02:00 | NUR ---
MADE ROUNDS. PT IS SLEEPING COMFORTABLY IN BED WITH EYES CLOSED. CHEST RISE AND FALL. CALL LIGHT IS WITHIN REACH.
--- NOTE | 2019-09-06 03:15 | NUR ---
PAGED DR RAJAN REGARDING PATIENT CENTRAL LINE DRESSING BEING SOILED AGAIN WITH BLOOD AND THERE IS VISIBLE CLOTS ON DRESSING. DOCTOR REMOVED OLD DRESSING AND APPLIED PRESSURED FOR APPROX 5-10MIN. THEN REMOVED OLD SUTURES AND SUTURED IT IN PLACE. NEW DRESSING APPLIED BY DOCTOR AND ICE PACKS APPLIED WELL. PATIENT WAS CLEANED AND REPOSITION.
[2019-09-06 04:00] VITALS: BP 109/77
--- NOTE | 2019-09-06 04:00 | NUR ---
PAGED DR RAJAN AGAIN DRESSING IS SOILED. DOCTOR IN TO SEE PATIENT AND APPLIED PRESSURE FOR APPROX 5 MIN AND APPLIED A PRESSURE DRESSING ON TOP. ICE PACK APPLIED OVER DRESSING. VS: 109/77 HR 82 96% ON 2L O2 RR 17 97.8 PT DENIES PAIN. ALL SAFETY MEASURES IN PLACE. WILL CONTINUE TO MONITOR CLOSELY.
[2019-09-06 06:19] LABS: BASOPHILS % (AUTO) 0.3 % (0.0-2.0); EOSINOPHILS % (AUTO) 0.2 % (0.0-4.0); HEMATOCRIT 33.2 % (36-52); HEMOGLOBIN 10.8 g/dL (12.0-18.0); LYMPHOCYTES # (AUTO) 0.9 K/uL (2.0-11.5); LYMPHOCYTES % (AUTO) 8.1 % (20.5-51.1); MEAN CORPUSCULAR HEMOGLOBIN 31 pg (27-31); MEAN CORPUSCULAR HGB CONC 33 g/dL (33-37); MEAN CORPUSCULAR VOLUME 95.5 fL (80-94); MONOCYTES % (AUTO) 8.8 % (1.7-9.3); NEUTROPHILS % (AUTO) 82.6 % (42.2-75.2); PLATELET COUNT (AUTO) 266 K/uL (140-450); RED BLOOD CELL COUNT(AUTO) 3.47 MIL/uL (4.20-6.10); RED CELL DISTRIBUTION WIDTH 17.8 % (11.6-13.7); WHITE BLOOD COUNT (AUTO) 10.9 K/uL (4.8-10.8)
--- NOTE | 2019-09-06 06:40 | NUR ---
DR. WHEATLEY IN TO SEE PATIENT AND WAS MADE AWARE OF BLEEDING AT CENTRAL LINE SITE. PER DOCTOR CHANGE DRESSING AND APPLY GAUZE ON TOP OF DRESSING THEN SECURE WITH A PRESSURE DRESSING. DRESSING CHANGED PER ORDERS. PT TOLERATED WELL. PATIENT IS STABLE. WILL ENDORSE TO DAY RN.
[2019-09-06 07:18] LABS: ALBUMIN 2.4 g/dL (3.4-5.0); ANION GAP 8.3 (8-16); CARBON DIOXIDE 35.1 mmol/L (21-32); CREATININE 1.8 mg/dL (0.6-1.3); PHOSPHORUS 3.9 mg/dL (2.5-4.9); POTASSIUM 3.4 mmol/L (3.5-5.1); TOTAL BILIRUBIN 1.5 mg/dL (0.0-1.0)
--- NOTE | 2019-09-06 07:20 | NUR ---
RECEIVED REPORT FROM NIGHT NURSE. PATIENT IN BED, ASLEEP, EASILY AROUSABLE BY NAME OR TOUCH. SKIN WARM AND DRY TO TOUCH. RIGHT IJ CENTRAL LINE INTACT WITH PRESSURE DRESSING IN PLACE. NO S/S OF DISTRESS NOTED. PLANS OF CARE DISCUSSED. SAFETY MEASURES IN PLACE. CALL LIGHT WITHIN REACH.
[2019-09-06] MEDS: ALBUTEROL SULFATE/IPRATROPIU 3 ML SOL IH SCH (07:22)
[2019-09-06 08:00] VITALS: BP 103/65
[2019-09-06] MEDS ORDERED: ALBUTEROL SULFATE/IPRATROPIU 3 ML SOL IH SCH (08:17)
[2019-09-06] MEDS: RIVAROXABAN 15 MG TAB PO SCH (09:00)
--- NOTE | 2019-09-06 09:25 | NUR ---
PER DR. MCKEON HOLD BLOOD THINNERS FOR NOW DUE TO BLEEDING NOTED FROM CENTRAL LINE SITE.
--- NOTE | 2019-09-06 09:30 | NUR ---
PRESSURE DRESSING APPLIED TO RIGHT IJ CENTRAL LINE TO CONTROL BLEEDING. PATIENT IS AWAKE, ALERT AND ORIENTED X4. NO S/S OF DISTRESS NOTED.
[2019-09-06] MEDS: LINEZOLID 600MG PREMIX 300 ML IV SCH ×2 (09:34→21:38)
[2019-09-06] MEDS: SENNA 8.6 MG TAB PO SCH (09:35)
[2019-09-06] MEDS: AMIODARONE 200 MG TAB NG SCH ×2 (09:35→21:38)
[2019-09-06] MEDS: ASPIRIN 81 MG TAB.CHEW PO SCH (09:35)
[2019-09-06] MEDS: DOCUSATE 100 MG/10 ML UDC GT SCH (09:35)
[2019-09-06] MEDS: PANTOPRAZOLE 40 MG INJ VIAL IVP SCH (09:35)
[2019-09-06] MEDS: FUROSEMIDE 40 MG/4 ML VIAL IVP SCH (09:36)
[2019-09-06] MEDS: HYDROCORTISONE NA SUCC 100 MG/2 ML VIAL IV SCH ×2 (09:47→21:36)
[2019-09-06 12:00] VITALS: BP 105/66
--- NOTE | 2019-09-06 12:30 | NUR ---
PATIENT IS EATING LUNCH. NO DISTRESS NOTED.
--- NOTE | 2019-09-06 13:42 | NUR ---
09/06/19 RD FOLLOW UP COMPLETED PLEASE REFER TO NUTRITION ASSESSMENT UNDER CARE ACTIVITY FOR ESTIMATED NUTRITIONAL NEEDS. 1. CONTINUE SOFT DIET WITH CHOPPED FOODS PER SPEECH THERAPIST 2. CONTINUE FLUID RESTRICTION OF 1.5 L/DAY 3. RD WILL PROVIDE NUTRITION EDUCATION WHEN PATIENT IS MORE ALERT AND ORIENTATED 4. RD TO FOLLOW-UP 3-5 DAYS, MODERATE RISK ASHELY FARRAR, RD
--- NOTE | 2019-09-06 13:55 | NUR ---
DR. FUENTES AT BEDSIDE. MADE DR FUENTES AWARE THAT XARELTO WAS WITH HELD DUE TO BLEEDING TO CENTRAL LINE SITE. DR STATED OK TO HOLD FOR NOW DUE TO BLEEDING.
--- NOTE | 2019-09-06 14:09 | NUR ---
ST CLARIFICATION ORDER BEDSIDE SWALLOW EVAL COMPLETED. REC MSFC FOOD AND THIN LIQUIDS, SINGLE SIPS, STRAW OR CUP OKAY. Pt REQUIRES TRAY SET UP, INTERMITTENT SUPERVISION, ASPIRATION PRECAUTIONS, ORAL CARE. Pt AT [facility]. D/C SKILLED ST.
--- NOTE | 2019-09-06 15:00 | NUR ---
ROUNDS MADE. PATIENT AAOX4. NO DISTRESS NOTED. PATIENT IS ON THE PHONE.
[2019-09-06 16:00] VITALS: BP 104/58
[2019-09-06] MEDS ORDERED: POTASSIUM CHLORIDE 40 MEQ, LIDOCAINE MPF 1% 25 MG in NACL 0.9% 250 ML IV SCH (18:00)
[2019-09-06] MEDS: CEFEPIME 1,000 MG in DEXTROSE 5% 50 ML IV SCH (18:01)
--- NOTE | 2019-09-06 19:05 | NUR ---
PATIENT REMAINS STABLE. AAOX4. NO S/S OF DISTRESS NOTED. ENDORSED TO NIGHT NURSE FOR CONTINUITY OF CARE.
--- NOTE | 2019-09-06 19:06 | NUR ---
RECEIVED BEDSIDE SHIFT REPORT FROM DAYSHIFT NURSE FOR CONTINUITY OF CARE. PATIENT AWAKE IN BED NO SIGNS OF DISTRESS NOTED. RESPIRATIONS EVEN AND UNLABORED ON 2L O2 VIA NC. IV PATENT. TELE MONITOR ATTACHED AND CALL LIGHT WITHIN REACH. WILL CONTINUE TO MONITOR
[2019-09-06 20:00] VITALS: BP 95/61
--- NOTE | 2019-09-06 21:36 | NUR ---
ADMINISTERED 2100 MEDICATIONS. PT TOLERATED WELL NO SIGNS OF DISTRESS NOTED. ALL MONITOR ATTACHED AND CALL LIGHT WITHIN REACH
[2019-09-06] MEDS: ATORVASTATIN 20 MG TAB PO SCH (21:38)
--- NOTE | 2019-09-06 23:12 | NUR ---
ROUNDING ON PATIENT. MILLER BAG MALFUNCTIONED AND WAS LEAKING ON FLOOR. HOUSE KEEPING CALLED TO MOP AND MILLER BAG CHANGED. PT TOLERATED WELL NO SIGNS OF DISTRESS NOTED. ALL MONITORS ATTACHED CALL LIGHT WITHIN REACH
[2019-09-07] VITALS: BP 120/72
--- NOTE | 2019-09-07 01:14 | NUR ---
ROUNDING PT SLEEPING. EASILY AWAKENED. NO SIGNS OF DISTRESS NOTED. ALL MONITORS ATTACHED AND CALL LIGHT WITHIN REACH
[2019-09-07 04:00] VITALS: BP 122/76
--- NOTE | 2019-09-07 04:20 | NUR ---
OBTAINED LAB DRAWS FOR LAB ON CENTRAL LINE AND OBTAINED VITALS PATIENT TOLERATED WELL NO SIGNS OF DISTRESS NOTED
[2019-09-07 06:27] LABS: BASOPHILS % (AUTO) 0.1 % (0.0-2.0); HEMATOCRIT 32.4 % (36-52); HEMOGLOBIN 10.5 g/dL (12.0-18.0); LYMPHOCYTES # (AUTO) 0.7 K/uL (2.0-11.5); LYMPHOCYTES % (AUTO) 7.2 % (20.5-51.1); MEAN CORPUSCULAR HEMOGLOBIN 31 pg (27-31); MEAN CORPUSCULAR HGB CONC 33 g/dL (33-37); MEAN CORPUSCULAR VOLUME 95.3 fL (80-94); MONOCYTES # (AUTO) 0.9 K/uL (0.8-1.0); MONOCYTES % (AUTO) 9.3 % (1.7-9.3); NEUTROPHILS # (AUTO) 8.2 K/uL (1.8-7.7); NEUTROPHILS % (AUTO) 83.4 % (42.2-75.2); PLATELET COUNT (AUTO) 278 K/uL (140-450); RED CELL DISTRIBUTION WIDTH 17.3 % (11.6-13.7); WHITE BLOOD COUNT (AUTO) 9.8 K/uL (4.8-10.8)
[2019-09-07 06:50] LABS: ANION GAP 9.7 (8-16); CREATININE 1.8 mg/dL (0.6-1.3); POTASSIUM 3.7 mmol/L (3.5-5.1)
[2019-09-07 07:10] LABS: PHOSPHORUS 3.3 mg/dL (2.5-4.9)
--- NOTE | 2019-09-07 07:28 | NUR ---
ENDORSED PATIENT TO DAYSHIFT NURSE AT BEDSIDE FOR CONTINUITY OF CARE. PT IN STABLE CONDITION
--- NOTE | 2019-09-07 07:29 | NUR ---
SHIFT REPORT RECEIVED FROM DENTAL BILLING SPECIALIST NURSE. PT IS IN BED RESPONSIVE TO VERBAL STIMULI. NO DISTRESS NOTED. NO COMPLAINS OF PAIN. SAFETY MEASURES IN PLACE. CALL LIGHT IN REACH. WILL CONTINUE TO MONITOR.
[2019-09-07 08:00] VITALS: BP 111/63
--- NOTE | 2019-09-07 09:00 | NUR ---
PT IS IN BED AWAKE AND RESPONSIVE. PT HAD BREAKFAST. MORNING MEDS TO BE GIVEN. PT ON NC 2L. VITAL SIGNS WITHIN NORMAL LEVELS. SAFETY MEASURES IN PLACE. WILL CONTINUE TO MONITOR. CALL LIGHT IN REACH.
[2019-09-07] MEDS: FUROSEMIDE 40 MG/4 ML VIAL IVP SCH (09:06)
[2019-09-07] MEDS: DOCUSATE 100 MG/10 ML UDC GT SCH (09:06)
[2019-09-07] MEDS: PANTOPRAZOLE 40 MG INJ VIAL IVP SCH (09:06)
[2019-09-07] MEDS: AMIODARONE 200 MG TAB NG SCH (09:07)
[2019-09-07] MEDS: SENNA 8.6 MG TAB PO SCH (09:07)
[2019-09-07] MEDS: ASPIRIN 81 MG TAB.CHEW PO SCH (09:07)
[2019-09-07] MEDS: RIVAROXABAN 15 MG TAB PO SCH (09:08)
[2019-09-07] MEDS: LINEZOLID 600MG PREMIX 300 ML IV SCH (09:09)
[2019-09-07] MEDS: HYDROCORTISONE NA SUCC 100 MG/2 ML VIAL IV SCH (10:28)
[2019-09-07 12:00] VITALS: BP 99/67
--- NOTE | 2019-09-07 12:00 | NUR ---
PT IS IN BED AWAKE AND RESPONSIVE. PT IS HAVING LUNCH. PT ON NC 2L. VITAL SIGNS WITHIN NORMAL LEVELS. SAFETY MEASURES IN PLACE. WILL CONTINUE TO MONITOR. CALL LIGHT IN REACH.
[2019-09-07] MEDS ORDERED: RIVA15TA1 PO ×3 (12:19→13:05)
[2019-09-07] MEDS ORDERED: AMIO200T10 NG ×3 (12:19→13:05)
[2019-09-07] MEDS ORDERED: FURO40TA9 PO (12:19)
[2019-09-07] MEDS ORDERED: ASPI81CT95 PO ×3 (12:19→13:05)
--- NOTE | 2019-09-07 12:30 | NUR ---
PT'S IJ DISCONTINUED PER MD ORDERS. PT WEANED OF O2. PT IS SATURATING AT 95% ON ROOM AIR. 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
[2019-09-07] MEDS ORDERED: METH4TAB1 PO (12:35)
[2019-09-07] MEDS ORDERED: FURO-570 PO ×3 (12:37→13:05)
[2019-09-07] MEDS ORDERED: ATOR40TA PO ×3 (12:40→13:05)
[2019-09-07] MEDS ORDERED: ASPI-1822 PO (12:53)
[2019-09-07] MEDS ORDERED: PRED20TA5 PO (13:05)
--- NOTE | 2019-09-07 14:26 | NUR ---
PT WAS DISCHARGED TO DAY TO HOME. DISCHARGE INSTRUCTIONS GIVEN TO PATIENT. ID BAND REMOVED. IJ REMOVED. NOTED FOR BLEEDING. NO BLEEDING AT DISCHARGE. PT'S MEDICATIONS SENT TO PHARMACY. PT'S BELONGINGS WITH PATIENT. NO COMPLAINS OF PAIN REPORTED. PT SAID THAT HE DID NOT WANT TO GO HOME. NOTIFIED DR. PT WAS TAKEN IN WHEELCHAIR TO HIS CAR. PT'S SISTER CAME TO PICK HIM UP. PT WAS SENT HOME IN [place] PT DID NOT WANT TO CHANGE CLOTHES. BELONGINGS WITH PATIENT. MEDICATION EXPLAINED TO PATIENT. NO DISTRESS NOTED AT TIME OF DISCHARGE.
== END 2019-09-07 14:00 | disposition home or self-care (01) | DRG 720 ==
LOC: EEVIPCON 14:33 → MED 14:33 → UNDOADMIN 16:29 → MIC 16:29 → MTU 16:29 → MIC 21:38 → MTU 09-05 06:45
PROVIDERS: ADMIT General Practice; ATTEND General Practice
PROC: 5A1955Z Respiratory Ventilation, Greater than 96 Consecutive Hours (ICD-10-PCS; principal; 2019-08-26)
PROC: 0BH17EZ Insertion of Endotracheal Airway into Trachea, Via Natural or Artificial Opening (ICD-10-PCS; 2019-08-26)
PROC: 02HV33Z Insertion of Infusion Device into Superior Vena Cava, Percutaneous Approach (ICD-10-PCS; 2019-08-27)
PROC: 5A2204Z Restoration of Cardiac Rhythm, Single (ICD-10-PCS; 2019-09-07)
DX: A41.9 Sepsis, unspecified organism (principal); I21.A1 Myocardial infarction type 2; J96.01 Acute respiratory failure with hypoxia; N17.0 Acute kidney failure with tubular necrosis; R65.21 Severe sepsis with septic shock; R57.0 Cardiogenic shock; J18.9 Pneumonia, unspecified organism; E83.39 Other disorders of phosphorus metabolism; I07.1 Rheumatic tricuspid insufficiency; E44.0 Moderate protein-calorie malnutrition; I50.43 Acute on chronic combined systolic (congestive) and diastolic (congestive) heart failure; I42.9 Cardiomyopathy, unspecified; E66.9 Obesity, unspecified; F15.10 Other stimulant abuse, uncomplicated; J44.0 Chronic obstructive pulmonary disease with (acute) lower respiratory infection; Z96.642 Presence of left artificial hip joint; E87.5 Hyperkalemia; I48.91 Unspecified atrial fibrillation; I48.92 Unspecified atrial flutter; N18.9 Chronic kidney disease, unspecified; I13.0 Hypertensive heart and chronic kidney disease with heart failure and stage 1 through stage 4 chronic kidney disease, or unspecified chronic kidney disease; Z66 Do not resuscitate; E87.1 Hypo-osmolality and hyponatremia; E87.6 Hypokalemia; E83.51 Hypocalcemia; Z87.891 Personal history of nicotine dependence; Z90.81 Acquired absence of spleen; Z91.14 Patient's other noncompliance with medication regimen; Z79.82 Long term (current) use of aspirin; Z79.899 Other long term (current) drug therapy; Z68.38 Body mass index [BMI] 38.0-38.9, adult; Z03.818 Encounter for observation for suspected exposure to other biological agents ruled out
CPT/HCPCS: 31500; 36415; 36600; 51702; 71045; 80048; 80053; 80202; 80305; 81001; 82140; 82150; 82550; 82728; 82803; 83605; 83615; 83690; 83735; 83880; 84100; 84439; 84443; 84484; 85025; 85610; 85651; 85730; 86140; 87040; 87070; 87081; 87086; 87205; 87804; 92610; 93005; 94002; 94003; 94640; 96365; 96375; 97110; 97112; 97161-GP; 97530; 99285; C9113; G0482; J0171; J0282; J0330; J0456; J0610; J0692; J0696; J1205; J1644; J1650; J1720; J1940; J2001; J2020; J2060; J2250; J2270; J2370; J2543; J3010; J3370; J3480; J3490; J7030; J7060; P9046; Q0092